=== PATIENT | male | born 1955 | race Caucasian/White ===

== ENCOUNTER 2018-08-26 16:07 | Inpatient (IN) ==
--- NOTE | 2018-08-26 16:26 | Internal Med History&Physical ---
Medical - H&P: HPI Patient information: Note initiated : 08/26/18 at 4:22 pm Service Date, if different from initiated Date: [] Patient: Quintin Avalos a 63 y/o M admitted on for Wound. Chief Complaint: [] History of present illness: Mr. Avalos is a 63 year old M Transferred to [facility] for further wound care of a infected decubitus ulcer. Patient originally presented to [facility] the middle of June for infected decubitus wound with sepsis and DKA and was transferred up to [facility] and was at there for 19 days and then discharged home. He was seen in [place] by surgeon who did debridement on the . A week later to the wound was shown to primary care provider Dr. Doherty to request the patient come to the ED. Patient was admitted and treated with IV antibiotics and was taken for OR debridement on the . The wound is debrided down to the bone and there has been eschar noted. An ESR was done today which is 108 CRP was 6. There is concern for developing osteomyelitis. [facility] does not have MRI for the next 4 days and their surgeon is gone for the next 4 days as well. This is requested to transfer for further wound care and imaging as we have MRI available. Case is also discussed with Dr. Mariscal and Dr. Garcia. Dr. kaplan will follow. MRI for tomorrow. Patient has no complaints at this time other than the sore bottom. Review of Systems: Pertinent positives as above. Denies headache/fever/chills/nausea/vomiting/chest or abdominal pain/cough/ dyspnea/diarrhea. Main 10 point review of system reviewed negative Medical - H&P: PMH Medical history: Medical History (Last Reviewed 06/20/18 @ 13:44 by Hannah Moon MD) Anemia (Chronic) Edema (Chronic) Vitamin D deficiency (Acute) Thrombocytopenia (Acute) Testosterone deficiency (Acute) Myocardial infarction, old (Acute) MRSA (methicillin resistant Staphylococcus aureus) (Acute) Hypertension, essential (Acute) Edema leg (Acute) Dysuria (Acute) DM type 2 (diabetes mellitus, type 2) (Acute) Coronary atherosclerosis (Acute) CAD (coronary artery disease) (Acute) Chronic kidney disease, stage III (moderate) (Chronic) BPH with obstruction/lower urinary tract symptoms (Acute) Asthma (Acute) Periapical abscess without sinus (Acute) Abnormal blood chemistry (Acute) Abdominal pain, generalized (Acute) Past Surgical History (Last Reviewed 06/20/18 @ 13:44 by Hannah Moon MD) History of tonsillectomy (Acute) History of quadruple bypass (Acute) History of nephrectomy (Acute) History of hernia surgery (Acute) History of coronary artery bypass graft (Acute) History of back surgery (Acute) Family History (Last Reviewed 06/20/18 @ 13:44 by Hannah Moon MD) Father Cardiac arrhythmia Mother Cardiac arrhythmia Malignant neoplasm of female breast Brother Lymphoma Social History (Last Updated 06/20/18 @ 15:33 by Hannah Moon MD) Patient denies tobacco or alcohol, Has been using a walker as of late lives at home with his mother who he cares for Medical - H&P: Meds Home Medications Medication Instructions Recorded Confirmed Type carvedilol 12.5 mg tablet See Dose Instructions PO .COMPLEX 09/06/14 06/20/18 History tab cholecalciferol (vitamin D3) 400 400 unit PO QDAY cap 09/06/14 06/20/18 History unit capsule compression socks, large See Dose Instructions .ROUTE 09/06/14 06/20/18 History .MEDSUPPLY hydrocodone 10 mg-acetaminophen 1 tab PO Q6H PRN tab 09/06/14 06/20/18 History 325 mg tablet metformin 500 mg tablet 500 mg PO BID tab 09/06/14 06/20/18 History multivitamin tablet 1 tab PO QDAY tab 09/06/14 06/20/18 History nitroglycerin 0.4 mg sublingual 0.4 mg SUBLINGUAL Q5-15MIN PRN tab 09/06/14 06/20/18 History tablet rosuvastatin 40 mg tablet 40 mg PO QDAY tab 09/06/14 06/20/18 History vitamin E 400 unit capsule 400 unit PO QDAY cap 09/06/14 06/20/18 History escitalopram 10 mg tablet 10 mg PO QDAY 08/06/15 06/20/18 History insulin lispro (U- 100) 100 See Rx Instructions .ROUTE .COMPLEX 08/06/15 06/20/18 History unit/mL subcutaneous cartridge amlodipine 2.5 mg tablet 2.5 mg PO QDAY 07/08/16 06/20/18 History aspirin 81 mg chewable tablet 324 mg PO QDAY tab 07/08/16 06/20/18 History insulin glargine (U-300) conc. 300 See Rx Instructions SUB-Q QDAY ml 07/08/16 06/20/18 History unit/mL (1.5 mL) subcutaneous pen isosorbide mononitrate ER 60 mg 120 mg PO QAM 07/08/16 06/20/18 History tablet,extended release 24 hr torsemide 20 mg tablet 40 mg PO BID #60 tab 12/09/17 06/20/18 Rx allopurinol 100 mg tablet 100 mg PO QDAY #90 tab 01/18/18 06/20/18 Rx lisinopril 5 mg tablet 5 mg PO QDAY #90 tab 01/26/18 06/20/18 Rx pregabalin 75 mg capsule 300 mg PO QDAY cap 03/15/18 06/20/18 History potassium chloride ER 20 mEq 20 meq PO QDAY #60 tab 05/25/18 06/20/18 Rx tablet,extended release doxycycline monohydrate 100 mg PO BID #20 tab 06/20/18 06/20/18 History tablet Allergies Allergy/AdvReac Type Severity Reaction Status Date / Time morphine [MORPHINE] Allergy Unknown Hallucinati Verified 06/20/18 11:15 ons Medical - H&P: Exam - Constitutional Exam: General: Alert, Awake, No acute Distress, obese Eyes/N/T: EOMI, PEERL, MMM Head/Neck: neck supple, normocephalic atraumatic CV: RRR, 2/6 SM Pulm: Clear b/l, no wheezing/rhonchi/rales Abd: soft, nontender, +BS x4 Buttock: Large open wound, foul odor, [id number] at opening and 6cm deep with 8cm cephalad tunneling Ext: no clubbing/cyanosis, 2+ chronic LE edema/lymphedema Neuro: Alert, no focal deficits, moves all extremities, CN 2-12 grossly intact, symmetrical strength b/l upper/lower, decreased sensation of lower extremities from diabetes Skin: warm/dry Medical - H&P: Reslt - Impressions Chemistry panel today in the include a sodium of 143 potassium 4.2 chloride 111 CO2 22 BUN 17 creatinine 1.1 calcium 8.6 albumin 3.0 glucose 150 bicarb 22 CBC today White blood cell count 9 hemoglobin 8 and has been 8 the past 3 days platelets 276 ESR 108 CRP 6 Medical - H&P: A/P - Narrative A/P Narrative: A: *Infected large decubitus ulcer, now concerning for osteomyelitis: -Had debridement on the and again on the at outside facility. Also had Debridement at [facility] in June -ESR 108, CRP 6 -Superficial cultures from the @outside facility growing Citrobacter/MSSA/and E. coli - (has h/o MRSA) *DM, poorly controlled: *CKD III: *Anemia, chronic: *CAD w/CABG *h/o Grade I diastolic cardiac dysfxn *HTN: *FINA: *Obesity: *Depression: on lexapro * P: -cont Vanc(d/c soon)/Zosyn for now -obtain wound/Blood Cx -Dr. Eagle following -f/u ESR/CRP -MRI - -cont home lisinopril/coreg -cont home imdur/statin/ASA -hold metformin for now, SSI and home lantus -home torsemide - -ppx: Heparin
[2018-08-26] MEDS ORDERED: ACETAMINOPHEN 325 MG TABLET PO PRN (19:37)
[2018-08-26] MEDS ORDERED: SENNOSIDES 1 TABLET PO PRN (19:37)
[2018-08-26] MEDS ORDERED: ONDANSETRON 4 MG/2 ML VIAL IV PRN (19:37)
[2018-08-26] MEDS ORDERED: VANCOMYCIN PER PHARMACY IV SCH (19:37)
[2018-08-26] MEDS ORDERED: NITROGLYCERIN 0.4 MG TAB.SUBL SL PRN (19:37)
[2018-08-26] MEDS ORDERED: IPRATROPIUM/ALBUTEROL 3 ML AMPUL.NEB NEB PRN (19:37)
[2018-08-26] MEDS ORDERED: DEXTROSE 31 GM ORAL.SUSP PO PRN (19:37)
[2018-08-26] MEDS ORDERED: HYDROmorphone 2 MG/ML VIAL ONE (19:55)
[2018-08-26] MEDS: HYDROmorphone 2 MG/ML VIAL IV PRN ×2 (19:59→22:50)
[2018-08-26] MEDS ORDERED: oxyCODONE/APAP 5/325MG TABLET PO ONE (21:13)
[2018-08-26] MEDS: oxyCODONE/APAP 5/325MG TABLET PO PRN (21:17)
[2018-08-26] MEDS: INSULIN LISPRO 1 UNIT/0.01 ML UNIT SQ SCH (21:23)
[2018-08-26] MEDS ORDERED: VANCOMYCIN 2,000 MG in 0.9 % SODIUM CHLORIDE 500 ML IV ONE (22:00)
[2018-08-26] MEDS: PIPERACILLIN SODIUM/TAZOBACTAM 3.375 GM in DEXTROSE 5% IN WATER 50 ML IV SCH (22:49)
[2018-08-26] MEDS: LACTOBACILLUS 1 CAPSULE PO SCH (22:50)
[2018-08-26] MEDS: DOCUSATE SODIUM 100 MG CAPSULE PO SCH (22:50)
[2018-08-26] MEDS: HEPARIN 5,000 UNIT/ML VIAL SQ SCH (22:50)
[2018-08-26] MEDS: 0.9 % SODIUM CHLORIDE 10 ML SYRINGE IV SCH ×2 (22:51→23:47)
[2018-08-27] MEDS: oxyCODONE/APAP 5/325MG TABLET PO PRN ×4 (03:54→21:49)
[2018-08-27] MEDS: 0.9 % SODIUM CHLORIDE 10 ML SYRINGE IV SCH ×6 (04:41→22:21)
[2018-08-27] MEDS: HYDROmorphone 2 MG/ML VIAL IV PRN ×5 (04:44→22:20)
[2018-08-27 06:15] LABS: Basophils # (Auto) 0 K/mcL (0.0-0.3); Basophils % (Auto) 0.3 % (0.0-2.0); Eosinophils # (Auto) 0.1 K/mcL (0.0-0.7); Eosinophils % (Auto) 1.8 % (0.0-7.0); Granulocytes % (Auto) 65.7 % (38.0-78.0); Lymphocytes # (Auto) 1.8 K/mcL (1.5-4.8); Lymphocytes % (Auto) 23.3 % (15.5-49.0); Mean Cell Volume 81.8 fL (80.0-100.0); Mean Corpuscular HGB Conc 31.9 g/dL (31.0-36.0); Mean Platelet Volume 10.7 fL (7.4-10.4); Monocytes # (Auto) 0.7 K/mcL (0.1-0.9); Monocytes % (Auto) 8.9 % (1.0-12.0); Platelet Count 302 K/mcL (140-440); RBC 3.06 M/mcL (4.50-5.90); Red Cell Distribution Width 15.7 % (11.5-14.5); WBC 7.8 K/mcL (4.5-11.0)
[2018-08-27 06:29] LABS: Estimated Average Glucose(eAG) 189 mg/dL; Hemoglobin A1C 8.2 % HGB (4.0-6.0)
[2018-08-27] MEDS: PIPERACILLIN SODIUM/TAZOBACTAM 3.375 GM in DEXTROSE 5% IN WATER 50 ML IV SCH ×4 (06:31→16:57)
[2018-08-27 06:46] LABS: ALT/SGPT 12 U/l (0-40); AST/SGOT 17 U/l (0-37); Albumin 2.7 gm/dL (3.2-5.2); Albumin/Globulin Ratio 0.8 (1.0-2.3); Alkaline Phosphatase 109 U/L (39-117); Bilirubin,Direct < 0.2 mg/dL (0.0-0.3); Bilirubin,Total 0.2 mg/dL (0.0-1.0); Blood Urea Nitrogen 18 mg/dl (8-23); Calcium 8.5 mg/dl (8.6-10.4); Carbon Dioxide 23 mmol/L (22-30); Chloride 105 mmol/L (96-108); Globulin 3.3 gm/dL (2.2-3.7); Glomerular Filtration Rate 58; Glucose 118 mg/dL (70-105); Lactate Dehydrogenase 229 U/L (94-250); Magnesium 1.5 mg/dL (1.6-2.5); Phosphorous 4.6 mg/dL (2.7-4.5); Potassium 3.7 mmol/L (3.3-5.1); Sodium 144 mmol/L (133-145); Triglycerides 198 mg/dl (<150)
[2018-08-27 07:35] LABS: Erythrocyte Sedimentation Rate 95 mm/hr (0-15)
--- NOTE | 2018-08-27 07:47 | Internal Med Progress Note ---
Medical - PN: Subj Patient information: Note initiated : 08/27/18 at 7:44 am Service Date, if different from initiated Date: [] Patient: Quintin Avalos a 63 y/o M admitted on 08/26/18 for Wound. Chief Complaint: [] Interval history: Mr. Avalos is a 63 year old M Transferred to [facility] for further wound care of a infected decubitus ulcer. Patient originally presented to [facility] the middle of June for infected decubitus wound with sepsis and DKA and was transferred up to [facility] and was at there for 19 days and then discharged home. He was seen in [place] by surgeon who did debridement on the . A week later to the wound was shown to primary care provider Dr. Doherty to request the patient come to the ED. Patient was admitted and treated with IV antibiotics and was taken for OR luisa karla on the . The wound is debrided down to the bone and there has been eschar noted. An ESR was done today which is 108 CRP was 6. There is concern for developing osteomyelitis. [facility] does not have MRI for the next 4 days and their surgeon is gone for the next 4 days as well. This is requested to transfer for further wound care and imaging as we have MRI available. Case is also discussed with Dr. Mariscal and Dr. Garcia. Dr. kaplan will follow. MRI for tomorrow. Patient has no complaints at this time other than the sore bottom. 08/27 No overnight events. Seen by Dr. kaplan this morning. IV antibiotics continuing. MRI this morning. No new complaints. Review of Systems: denies headache/fever/chills/nausea/vomiting/chest or abdominal pain/cough/dys pnea/diarrhea. Otherwise see above. - Constitutional Vitals: Vital Signs Temp Pulse Resp BP Pulse Ox 97.3 F 74 16 138/76 94 08/27/18 06:50 08/27/18 03:43 08/27/18 06:50 08/27/18 06:50 08/27/18 06:50 Period Temp Pulse Resp BP Sys/[place]lin Pulse Ox Last 24 Hr 97.3 F-97.8 F 63-84 14-24 138-144/65-76 93-98 Intake and Output 08/26/18 08/27/18 08/27/18 21:59 05:59 13:59 Intake Total 450 Output Total 1325 Balance -1325 450 Weight 133.583 kg Intake & Output: Intake & Output 08/26/18 08/27/18 08/27/18 21:59 05:59 13:59 Intake Total 450 Output Total 1325 Balance -1325 450 Weight 133.583 kg Intake: IV 50 Zosyn 3.375 gm In Dextrose 5% 50 in Water 50 ml @ 100 mls/hr IV Q6H JEANCARLOS Rx#:[id number] Oral 400 Output: Void Amount 1325 Other: Meal Tuna [place] Percent of Meal Consumed 100% Urine Appearance Clear Urine Color Straw Urine Odor Strong # Voids 1 Exam: General: Alert, Awake, No acute Distress, obese Eyes/N/T: EOMI, Head/Neck: neck supple, CV: RRR, 2/6 SM Pulm: Clear b/l, no wheezing/rhonchi/rales Abd: soft, nontender, +BS x4 Buttock: Large open wound, foul odor, [id number] at opening and 6cm deep with 8cm cephalad tunneling Ext: no clubbing/cyanosis, 2+ chronic LE edema/lymphedema Neuro: Alert, no focal deficits, moves all extremities, Skin: warm/dry Medical - PN: Obj Da - Labs CBC & Chem 7: 08/27/18 04:00 08/27/18 04:00 Labs: Abnormal Lab Results 08/27/18 08/27/18 04:00 04:00 RBC 3.06 L Hgb 8.0 L Hct 25.0 L RDW 15.7 H MPV 10.7 H ESR 95 H Creatinine 1.3 H Glucose 118 H Hemoglobin A1c 8.2 H Calcium 8.5 L Phosphorus 4.6 H Magnesium 1.5 L GGT 143 H C-Reactive Protein 3.0 H Albumin 2.7 L Albumin/Globulin Ratio 0.8 L Triglycerides 198 H Meds: Medications Acetaminophen (Tylenol) 650 mg PO Q6HP PRN PRN Reason: PAIN/FEVER > 101 Albuterol/Ipratropium (Duoneb) 3 ml NEB Q4HRT PRN PRN Reason: Bronchospasm Aspirin (Aspirin) 81 mg CHEWED DAILY JEANCARLOS Dextrose (Dextrose 50%) 0 ml IV UD PRN PRN Reason: Hypoglycemia Diagnostic Test (Pha) (Accu-Chek) 1 each FS ACHS [facility] Last Admin: 08/26/18 21:22 Dose: 1 each Documented by: Docusate Sodium (Colace) 100 mg PO BID [facility] Last Admin: 08/26/18 22:50 Dose: 100 mg Documented by: Glucose (Insta-Glucose) 15 gm PO PRN PRN PRN Reason: Hypoglycemia Heparin Sodium (Porcine) (Heparin) 5,000 unit SQ Q12 [facility] Last Admin: 08/26/18 22:50 Dose: 5,000 unit Documented by: Hydromorphone HCl (Dilaudid) 0.5 mg IV Q2HP PRN PRN Reason: PAIN LEVEL > 6 Last Admin: 08/27/18 04:44 Dose: 0.5 mg Documented by: Piperacillin Sod/Tazobactam (Sod 3.375 gm/ Dextrose) 50 mls @ 100 mls/hr IV Q6H [facility]; Protocol Last Admin: 08/27/18 06:31 Dose: 100 mls/hr Documented by: Vancomycin HCl 1,500 mg/ (Sodium Chloride) 500 mls @ 333.3 mls/hr IV Q12H [facility] Insulin Human Lispro (Humalog) 0 unit SQ ACHS [facility]; Protocol Last Admin: 08/26/18 21:23 Dose: Not Given Documented by: Lactobacillus Rhamnosus (Culturelle) 1 cap PO BID [facility] Last Admin: 08/26/18 22:50 Dose: 1 cap Documented by: Nitroglycerin (Nitrostat) 0.4 mg SL Q5M PRN PRN Reason: Chest Pain Ondansetron HCl (Zofran) 4 mg IV Q6HP PRN PRN Reason: Nausea And Vomiting Oxycodone/Acetaminophen (Percocet 5-325 Mg) 1 tab PO Q4HP PRN PRN Reason: PAIN LEVEL 3-6 Last Admin: 08/27/18 03:54 Dose: 1 tab Documented by: Stanley (Senokot) 2 tab PO DAILY PRN PRN Reason: Constipation Sodium Chloride (Saline Flush) 10 ml IV Q8 [facility] Last Admin: 08/27/18 04:41 Dose: 10 ml Documented by: Sodium Chloride (Saline Flush) 10 ml IV Q8 [facility] Last Admin: 08/27/18 04:42 Dose: Not Given Documented by: Vancomycin HCl (Vancomycin Per Pharmacy) 1 order IV [facility] [place] [place]; Protocol Medical - PN: A/P - Time Spent With Patient Total time spent is greater than 50% in coordination of care (as documented) at patient's floor/unit and/or counseling patient: - Narrative A/P Narrative: A: *Infected large left buttock pressure ulcer, now concerning for osteomyelitis: -Had debridement on the and at outside facility. Also Debridement in June while at [facility] -ESR 108, CRP 6 -Superficial cultures from the @outside facility growing Citrobacter/MSSA/and E. coli -WC here with GNB *DM, poorly controlled: *CKD III: *Anemia, chronic: *CAD w/CABG *h/o Grade I diastolic cardiac dysfxn *HTN: *FINA: *Obesity: *Depression: on lexapro *Hypomag P: -cont Zosyn for now -pending wound/Blood Cx -Dr. Eagle following -f/u ESR/CRP -MRI pelvis pending - -cont home lisinopril/coreg -cont home imdur/statin/ASA -hold metformin for now, SSI and home lantus -hold torsemide today, ?on furosemide too? - -ppx: Heparin Medical - PN: Qual - VTE Deep Vein Thrombosis/Pulmonary Embolism Present on Admission: No
[2018-08-27] MEDS ORDERED: NITROGLYCERIN 0.4 MG TAB.SUBL SL PRN (07:57)
[2018-08-27] MEDS: INSULIN LISPRO 1 UNIT/0.01 ML UNIT SQ SCH ×4 (08:01→22:06)
[2018-08-27] MEDS ORDERED: FUROSEMIDE 20 MG TABLET PO SCH (09:00)
[2018-08-27] MEDS ORDERED: GADOTERIDOL INJ 20 ML/VIAL IV ONE (09:25)
[2018-08-27] MEDS ORDERED: [UNRECOGNIZED DRUG - OTHER] IV ONE (09:25)
--- NOTE | 2018-08-27 10:23 | General Surgery Consult Note ---
History of Present Illness Patient information: Note initiated : 08/27/18 at 10:11 am Service Date, if different from initiated Date: [] Patient: Quintin Avalos 63 y/o M admitted on 08/26/18 for Wound. Chief Complaint: [] Consult date: 08/27/18 Requesting physician: Jaswant Palacio (Wound Care. ) History of present illness: I saw this patient in room 108 along with Nafisa JAQUEZ. I reviewed the hospitalization records from [facility] in [facility] in [place] and from [facility] in [place], [place]. CC: 63 / M Super morbid obese hirsuite gentleman with complicated OPEN POST SURGICAL BUTTOCK WOUND EXTENDING TO SACRAL, COCCYGEAL REGION. CLOSE PROXIMITY TO ANAL ORIFICE. Patient ambulates without orthostatic symptoms. H/O Uncontrolled diabetes, CAD and spine disease. S/P CABG and Lumbar spine surgery. H/O being sick for over 6-8 weeks. Noted a BOIL over Left buttock, which was lanced, treated with oral antibiotics. Led to CSSSI and sever sepsis with SIRS. Prolonged hospitalization at [facility], [facility], [place] later further inpatient treatment and last surgical debridement at [facility], in [place], [place] by Dr. Doherty, 3 days ago. Subsequently transferred to [facility], [place], [place] last evening. patient is sin gle, lives by himself and has family members living near by. He is Non Smoker and Non alcoholic. Medications and Allergies Home Medications Medication Instructions Recorded Confirmed Type carvedilol 12.5 mg tablet 12.5 mg PO QAM tab 09/06/14 08/27/18 History cholecalciferol (vitamin D3) 400 400 unit PO QDAY cap 09/06/14 08/28/18 History unit capsule hydrocodone 10 mg-acetaminophen 1 - 2 tab PO Q4HP PRN tab 09/06/14 08/27/18 History 325 mg tablet metformin 500 mg tablet 500 mg PO BID tab 09/06/14 08/27/18 History nitroglycerin 0.4 mg sublingual 0.4 mg SUBLINGUAL Q5-15MIN PRN tab 09/06/14 08/27/18 History tablet rosuvastatin 40 mg tablet 40 mg PO QHS tab 09/06/14 08/27/18 History vitamin E 400 unit capsule 400 unit PO QDAY cap 09/06/14 08/28/18 History escitalopram 10 mg tablet 10 mg PO QDAY 08/06/15 08/27/18 History insulin lispro (U- 100) 100 See Rx Instructions .ROUTE .COMPLEX 08/06/15 06/20/18 History unit/mL subcutaneous cartridge amlodipine 2.5 mg tablet 2.5 mg PO QDAY 07/08/16 08/28/18 History aspirin 81 mg chewable tablet 324 mg PO QDAY tab 07/08/16 08/27/18 History insulin glargine (U-300) conc. 300 See Rx Instructions SUB-Q QDAY ml 07/08/16 06/20/18 History unit/mL (1.5 mL) subcutaneous pen isosorbide mononitrate ER 60 mg 60 mg PO QDAY 07/08/16 08/27/18 History tablet,extended release 24 hr allopurinol 100 mg tablet 100 mg PO QDAY #90 tab 01/18/18 08/28/18 Rx lisinopril 5 mg tablet 5 mg PO QDAY #90 tab 01/26/18 08/27/18 Rx pregabalin 75 mg capsule 75 mg PO QID cap 03/15/18 08/27/18 History potassium chloride ER 20 mEq 20 meq PO QDAY #60 tab 05/25/18 08/27/18 Rx tablet,extended release Calcitriol [Rocaltrol] 0.25 mcg PO BID 08/27/18 08/27/18 History Carvedilol [Coreg] 6.25 mg PO QHS 08/27/18 08/27/18 History Enoxaparin [Lovenox] 40 mg SQ DAILY 08/27/18 08/27/18 History Insulin Glargine, Human [Lantus] 60 unit SQ BID 08/27/18 08/27/18 History Insulin Regular, Human [HumuLIN R] See Protocol IJ ACHS 08/27/18 08/27/18 Histo ry Piperacillin Sodium/Tazobactam 3.375 gm IV Q6H 08/27/18 08/27/18 History [Zosyn] Torsemide [Demadex] 30 mg PO BID 08/27/18 08/27/18 History Vanco 1 Gram/250 ml-0.9% NaCl 1 gm IV Q12H 08/27/18 08/27/18 History Vancomycin/0.9 % Sod Chloride 1.25 gm IV Q12H 08/27/18 08/27/18 History [Vanco 1.25 gm/250 ml-0.9% NaCl] Vit A,C & E/Lutein/Minerals 1 tab PO DAILY 08/27/18 08/27/18 History [Ocuvite] fentaNYL CITRATE/PF [Fentanyl 100 50 mcg IV Q4H PRN 08/27/18 08/27/18 History Mcg/2 ml Syringe] glipiZIDE [Glipizide ER] 2.5 mg PO BIDCC 08/27/18 08/27/18 History oxyCODONE/APAP [Percocet 5-325 mg] 1 tab PO Q6H PRN 08/27/18 08/27/18 History Multivit-Min/FA/Lycopen/Lutein 1 each PO DAILY 08/28/18 08/28/18 History [Centrum Silver Tablet] Allergies Allergy/AdvReac Type Severity Reaction Status Date / Time morphine [MORPHINE] AdvReac Mild Hallucinati Verified 08/28/18 08:44 ons Exam Temp Pulse Resp BP Pulse Ox 97.3 F 74 16 138/76 94 08/27/18 06:50 08/27/18 03:43 08/27/18 06:50 08/27/18 06:50 08/27/18 06:50 - General physical appearance well developed, well nourished, no distress, obese - Eyes PERRL, normal ocular movement - ENT normal pinna, normal nares, normal mucosa, no congestion - Head Head exam IM: Present: atraumatic, normal inspection, normocephalic - Neck no masses, no bruits, trachea midline, no lymphadenopathy, no venous distension - Cardiovascular Cardiovascular exam IM: Present: normal rate and rhythm - Respiratory clear to auscultation - Abdomen Abdomen: Present: soft, non tender, bowel sounds - Genitourinary Present: normal penis with no external lesions, testicles present - Rectum Rectum: Present: other (Rectal Examination. Guiac negative stools. Unremarkable prostrate examination. No nodules) - Integumentary Present: other (Larger open LEFT buttock wound involving over 80 % gluteal surface over 15 x 10 x 12 CM. Extends to coccygeal region and to Right buttock as well. Over 80 % adherent slough and 15 % granulations. Mild odor. ) - Neurologic Present: other (Non focal neurological examination. WEAK Rectal sphincter tone on rectal examination. Stress incontinence of flatus / feces. ) - Musculoskeletal Present: normal gait, other (LARGE open post surgicalbuttock wound LEFT . ) - Psychiatric Present: oriented to time, oriented to person, oriented to place, speech is normal Results - Labs 08/28/18 04:15 08/28/18 04:15 Abnormal lab results 08/27/18 08/27/18 Range/Units 04:00 04:00 RBC 3.06 L (4.50-5.90) M/mcL Hgb 8.0 L (13.5-16.5) g/dL Hct 25.0 L (41.0-55.0) % RDW 15.7 H (11.5-14.5) % MPV 10.7 H (7.4-10.4) fL ESR 95 H (0-15) mm/hr Creatinine 1.3 H (0.7-1.2) mg/dl Glucose 118 H (70-105) mg/dL Hemoglobin A1c 8.2 H (4.0-6.0) % HGB Calcium 8.5 L (8.6-10.4) mg/dl Phosphorus 4.6 H (2.7-4.5) mg/dL Magnesium 1.5 L (1.6-2.5) mg/dL GGT 143 H (8-61) U/L C-Reactive Protein 3.0 H (0.0-0.8) mg/dl Albumin 2.7 L (3.2-5.2) gm/dL Albumin/Globulin Ratio 0.8 L (1.0-2.3) Triglycerides 198 H (<150) mg/dl Diabetes panel 08/27/18 Range/Units 04:00 Sodium 144 (133-145) mmol/L Potassium 3.7 (3.3-5.1) mmol/L Chloride 105 (96-108) mmol/L Carbon Dioxide 23 (22-30) mmol/L BUN 18 (8-23) mg/dl Creatinine 1.3 H (0.7-1.2) mg/dl Glucose 118 H (70-105) mg/dL Hemoglobin A1c 8.2 H (4.0-6.0) % HGB Calcium 8.5 L (8.6-10.4) mg/dl AST 17 (0-37) U/l ALT 12 (0-40) U/l Alkaline Phosphatase 109 (39-117) U/L Total Protein 6.0 (5.9-8.4) gm/dL Albumin 2.7 L (3.2-5.2) gm/dL Triglycerides 198 H (<150) mg/dl Calcium panel 08/27/18 Range/Units 04:00 Calcium 8.5 L (8.6-10.4) mg/dl Phosphorus 4.6 H (2.7-4.5) mg/dL Albumin 2.7 L (3.2-5.2) gm/dL Pituitary panel 08/27/18 Range/Units 04:00 Sodium 144 (133-145) mmol/L Potassium 3.7 (3.3-5.1) mmol/L Chloride 105 (96-108) mmol/L Carbon Dioxide 23 (22-30) mmol/L BUN 18 (8-23) mg/dl Creatinine 1.3 H (0.7-1.2) mg/dl Glucose 118 H (70-105) mg/dL Calcium 8.5 L (8.6-10.4) mg/dl Adrenal panel 08/27/18 Range/Units 04:00 Sodium 144 (133-145) mmol/L Potassium 3.7 (3.3-5.1) mmol/L Chloride 105 (96-108) mmol/L Carbon Dioxide 23 (22-30) mmol/L BUN 18 (8-23) mg/dl Creatinine 1.3 H (0.7-1.2) mg/dl Glucose 118 H (70-105) mg/dL Calcium 8.5 L (8.6-10.4) mg/dl Total Bilirubin 0.2 (0.0-1.0) mg/dL AST 17 (0-37) U/l ALT 12 (0-40) U/l Alkaline Phosphatase 109 (39-117) U/L Total Protein 6.0 (5.9-8.4) gm/dL Albumin 2.7 L (3.2-5.2) gm/dL All other labs normal. Assessment and Plan (1) Open wound of left buttock with complication Assessment: Post surgical wound LEFT gluteal region in close proximity of anus and rectum. H/O Diabetes and atherosclerotic PAD and CAD. NEEDS prolonged ongoing wound care, debridement and other interventions as necessary. Consideration for diversion colostomy and urine diversion over immediate intermediate term vs residential, until wound heals. ID evaluation for recommendations about antibiotics management. Plan: See wound care orders. Status: Acute Priority: High Comment: MRI report seen and pictures reviewed. SOFT tissue defect at the site of wound with muscle edema and gas open to the surface. NO vasculature and NO bone structure involvement. Qualifiers: Encounter type: initial encounter Qualified Code(s): S31.829A - Unspecified open wound of left buttock, initial encounter (2) History of quadruple bypass Status: Chronic Priority: Low Comment: 2000; ANA Farmer (3) History of back surgery Status: Chronic Priority: Low Comment: Lumbar back fusion - no hardware
[2018-08-27] MEDS: VANCOMYCIN 1,500 MG in 0.9 % SODIUM CHLORIDE 500 ML IV SCH ×2 (10:39→21:41)
[2018-08-27] MEDS: TORSEMIDE 10 MG TABLET PO SCH ×2 (10:40→16:47)
[2018-08-27] MEDS: ISOSORBIDE MONONITRATE 60 MG TAB.XL.24H PO SCH (10:40)
[2018-08-27] MEDS: HEPARIN 5,000 UNIT/ML VIAL SQ SCH ×2 (10:40→21:49)
[2018-08-27] MEDS: ASPIRIN 81 MG TAB.CHEW CHEWED SCH (10:41)
[2018-08-27] MEDS: ESCITALOPRAM 10 MG TABLET PO SCH (10:41)
[2018-08-27] MEDS: CALCITRIOL 0.25 MCG CAPSULE PO SCH ×2 (10:41→21:50)
[2018-08-27] MEDS: PREGABALIN 75 MG CAPSULE PO SCH ×4 (10:41→21:50)
[2018-08-27] MEDS: DOCUSATE SODIUM 100 MG CAPSULE PO SCH ×2 (10:41→21:54)
[2018-08-27] MEDS: LACTOBACILLUS 1 CAPSULE PO SCH ×2 (10:41→21:50)
[2018-08-27] MEDS: LISINOPRIL 10 MG TABLET PO SCH (10:41)
[2018-08-27] MEDS: POTASSIUM CHLORIDE 20 MEQ TABLET PO SCH (10:42)
[2018-08-27] MEDS: INSULIN GLARGINE, HUMAN 1 UNIT/0.01 ML SQ SCH ×2 (10:42→22:06)
[2018-08-27] MEDS: CARVEDILOL 12.5 MG TABLET PO SCH (10:42)
--- NOTE | 2018-08-27 11:07 | Magnetic Resonance Report ---
CLINICAL INFORMATION: Soft tissue wound in the left gluteal region. Possible osteomyelitis TECHNIQUE: Sagittal, axial, coronal images of the buttocks, sacrum, and pelvis. Intravenous contrast material was administered. Scans were performed before and after contrast injection COMPARISON: None. FINDINGS: Axial images demonstrate a soft tissue defect in the left buttocks, just to the left of midline. There is signal void consistent with soft tissue gas which communicates with the skin surface. There is no well-defined fluid collection. There is mild signal increase on T2-weighted images within the left gluteal muscles. There is no fluid collection. No soft tissue enhancement. No evidence for soft tissue abscess. Sacrum and coccyx are negative. There is no bone marrow edema. No enhancement. No bone destruction. No evidence for osteomyelitis. There is mild presacral soft tissue edema. No enhancing lesion. No intrapelvic abscess. There is no free pelvic fluid. Pelvis is negative. Iliac bones, ischiae, and pubic bones are negative. IMPRESSION: 1. Negative sacrum and coccyx. No osteomyelitis 2. Mild signal abnormality within the left gluteal muscles consistent with edema. No enhancement. No soft tissue abscess 3. Focal soft tissue wound just to the left of midline Interpreted and Authenticated by: Marcos Avery 08/27/18
[2018-08-27] MEDS ORDERED: oxyCODONE/APAP 5/325MG TABLET PO PRN ×2 (11:23→13:45)
[2018-08-27] MEDS: SIMVASTATIN 40 MG TABLET PO SCH (21:49)
[2018-08-27] MEDS: CARVEDILOL 6.25 MG TABLET PO SCH (21:50)
[2018-08-28] MEDS: PIPERACILLIN SODIUM/TAZOBACTAM 3.375 GM in DEXTROSE 5% IN WATER 50 ML IV SCH ×4 (00:22→17:15)
[2018-08-28] MEDS: oxyCODONE/APAP 5/325MG TABLET PO PRN ×5 (00:22→22:09)
[2018-08-28] MEDS: HYDROmorphone 2 MG/ML VIAL IV PRN ×5 (00:47→21:10)
[2018-08-28] MEDS: 0.9 % SODIUM CHLORIDE 10 ML SYRINGE IV SCH ×4 (05:39→13:15)
[2018-08-28 06:03] LABS: Basophils # (Auto) 0.1 K/mcL (0.0-0.3); Basophils % (Auto) 0.9 % (0.0-2.0); Eosinophils # (Auto) 0.2 K/mcL (0.0-0.7); Eosinophils % (Auto) 2.5 % (0.0-7.0); Granulocytes % (Auto) 65.5 % (38.0-78.0); Hematocrit 27.3 % (41.0-55.0); Hemoglobin 9.1 g/dL (13.5-16.5); Lymphocytes # (Auto) 1.4 K/mcL (1.5-4.8); Lymphocytes % (Auto) 21.3 % (15.5-49.0); Mean Cell Volume 80.5 fL (80.0-100.0); Mean Corpuscular HGB Conc 33.5 g/dL (31.0-36.0); Mean Platelet Volume 10.8 fL (7.4-10.4); Monocytes # (Auto) 0.7 K/mcL (0.1-0.9); Monocytes % (Auto) 9.8 % (1.0-12.0); Platelet Count 256 K/mcL (140-440); RBC 3.39 M/mcL (4.50-5.90); Red Cell Distribution Width 15.1 % (11.5-14.5); WBC 6.7 K/mcL (4.5-11.0)
[2018-08-28 06:50] LABS: ALT/SGPT 13 U/l (0-40); AST/SGOT 21 U/l (0-37); Albumin 2.6 gm/dL (3.2-5.2); Albumin/Globulin Ratio 0.7 (1.0-2.3); Alkaline Phosphatase 102 U/L (39-117); Bilirubin,Direct < 0.2 mg/dL (0.0-0.3); Bilirubin,Total 0.3 mg/dL (0.0-1.0); Blood Urea Nitrogen 21 mg/dl (8-23); Calcium 8.4 mg/dl (8.6-10.4); Carbon Dioxide 24 mmol/L (22-30); Chloride 102 mmol/L (96-108); Globulin 3.6 gm/dL (2.2-3.7); Glomerular Filtration Rate 64; Glucose 65 mg/dL (70-105); Lactate Dehydrogenase 291 U/L (94-250); Magnesium 1.5 mg/dL (1.6-2.5); Phosphorous 4.7 mg/dL (2.7-4.5); Potassium 3.9 mmol/L (3.3-5.1); Sodium 143 mmol/L (133-145); Triglycerides 158 mg/dl (<150); Uric Acid 5.1 mg/dL (2.5-8.0)
[2018-08-28] MEDS ORDERED: oxyCODONE/APAP 5/325MG TABLET PO PRN (07:23)
[2018-08-28] MEDS ORDERED: FENTANYL CITRATE IV PRN (07:23)
[2018-08-28] MEDS ORDERED: [UNRECOGNIZED DRUG - OTHER] IV PRN (07:23)
--- NOTE | 2018-08-28 07:27 | Internal Med Progress Note ---
Medical - PN: Subj Patient information: Note initiated : 08/28/18 at 7:25 am Service Date, if different from initiated Date: [] Patient: Quintin Avalos a 63 y/o M admitted on 08/26/18 for Wound. Chief Complaint: [] Interval history: Mr. Avalos is a 63 year old M Transferred to [facility] for further wound care of a infected decubitus ulcer. Patient originally presented to [facility] the middle of June for infected decubitus wound with sepsis and DKA and was transferred up to [place] and was at there for 19 days and then discharged home. He was seen in [place] by surgeon who did debridement on the . A week later to the wound was shown to primary care provider Dr. Doherty to request the patient come to the ED. Patient was admitted and treated with IV antibiotics and was taken for OR luisa karla on the . The wound is debrided down to the bone and there has been eschar noted. An ESR was done today which is 108 CRP was 6. There is concern for developing osteomyelitis. [facility] does not have MRI for the next 4 days and their surgeon is gone for the next 4 days as well. This is requested to transfer for further wound care and imaging as we have MRI available. Case is also discussed with Dr. Mariscal and Dr. Garcia. Dr. kaplan will follow. MRI for tomorrow. Patient has no complaints at this time other than the sore bottom. 08/27 No overnight events. Seen by Dr. kaplan this morning. IV antibiotics continuing. MRI this morning. No new complaints. 08/28 Pain controlled, no overnight events. No new complaints. Did have some diarrhea yesterday. Stool softener stopped. Review of Systems: denies headache/fever/chills/nausea/vomiting/chest or abdominal pain/cough/dyspnea/diarrhea. Otherwise see above. - Constitutional Vitals: Vital Signs Temp Pulse Resp BP Pulse Ox 98.9 F 110 H 20 118/82 97 08/28/18 06:43 08/28/18 04:00 08/28/18 06:43 08/28/18 06:43 08/28/18 06:43 Period Temp Pulse Resp BP Sys/Hamlin Pulse Ox Last 24 Hr 97 F-99.5 F 88-116 18-20 118-142/67-84 94-97 Intake and Output 08/27/18 08/28/18 08/28/18 21:59 05:59 13:59 Intake Total 50 1150 Output Total 2175 1125 400 Balance -2125 25 -400 Weight 143.789 kg Intake & Output: Intake & Output 08/27/18 08/28/18 08/28/18 21:59 05:59 13:59 Intake Total 50 1150 Output Total 2175 1125 400 Balance -2125 25 -400 Weight 143.789 kg Intake: IV 50 50 Zosyn 3.375 gm In Dextrose 5% 50 50 in Water 50 ml @ 100 mls/hr IV Q6H [facility] Rx#:[id number] Oral 1100 Output: Void Amount 2175 1125 400 # of times incontinent of urine 0 Other: Meal HS Snack - Cottage cheese/fruit Percent of Meal Consumed 100% Feeding Ability Independent Urine Appearance Clear Urine Color Pale Straw Stool Size Small Stool Color Brown Stool Consistency Soft Formed # Voids 1 Exam: General: Alert, Awake, No acute Distress, obese Eyes/N/T: EOMI, Head/Neck: neck supple, CV: RRR, 2/6 SM Pulm: Clear b/l, no wheezing/rhonchi/rales Abd: soft, nontender, +BS x4 Buttock: Large open wound, foul odor, [id number] at opening and 6cm deep with 8cm cephalad tunneling , dressings now in place Ext: no clubbing/cyanosis, 2+ chronic LE edema/lymphedema Neuro: Alert, no focal deficits, moves all extremities, Skin: warm/dry Medical - PN: Obj Da - Labs CBC & Chem 7: 08/28/18 04:15 08/28/18 04:15 Labs: Abnormal Lab Results 08/28/18 08/28/18 08/28/18 04:15 04:15 04:15 RBC 3.39 L Hgb 9.1 L Hct 27.3 L RDW 15.1 H MPV 10.8 H Lymph # (Auto) 1.4 L ESR Anion Gap 17.0 H Creatinine Glucose 65 L Hemoglobin A1c Calcium 8.4 L Phosphorus 4.7 H Magnesium 1.5 L GGT 153 H Lactate Dehydrogenase 291 H C-Reactive Protein 6.2 H Albumin 2.6 L Albumin/Globulin Ratio 0.7 L Triglycerides 158 H 08/27/18 08/27/18 04:00 04:00 RBC 3.06 L Hgb 8.0 L Hct 25.0 L RDW 15.7 H MPV 10.7 H Lymph # (Auto) ESR 95 H Anion Gap Creatinine 1.3 H Glucose 118 H Hemoglobin A1c 8.2 H Calcium 8.5 L Phosphorus 4.6 H Magnesium 1.5 L GGT 143 H Lactate Dehydrogenase C-Reactive Protein 3.0 H Albumin 2.7 L Albumin/Globulin Ratio 0.8 L Triglycerides 198 H Meds: Medications Acetaminophen (Tylenol) 650 mg PO Q6HP PRN PRN Reason: PAIN/FEVER > 101 Albuterol/Ipratropium (Duoneb) 3 ml NEB Q4HRT PRN PRN Reason: Bronchospasm Aspirin (Aspirin) 81 mg CHEWED DAILY [facility] Last Admin: 08/27/18 10:41 Dose: 81 mg Documented by: Calcitriol (Rocaltrol) 0.25 mcg PO BID [facility] Last Admin: 08/27/18 21:50 Dose: 0.25 mcg Documented by: Carvedilol (Coreg) 12.5 mg PO QAM [facility] Last Admin: 08/27/18 10:42 Dose: 12.5 mg Documented by: Carvedilol (Coreg) 6.25 mg PO QHS [facility] Last Admin: 08/27/18 21:50 Dose: 6.25 mg Documented by: Dextrose (Dextrose 50%) 0 ml IV UD PRN PRN Reason: Hypoglycemia Diagnostic Test (Pha) (Accu-Chek) 1 each FS ACHS [facility] Last Admin: 08/27/18 21:50 Dose: 1 each Documented by: Docusate Sodium (Colace) 100 mg PO BID [facility] Last Admin: 08/27/18 21:54 Dose: Not Given Documented by: Escitalopram Oxalate (Lexapro) 10 mg PO QDAY [facility] Last Admin: 08/27/18 10:41 Dose: 10 mg Documented by: Glucose (Insta-Glucose) 15 gm PO PRN PRN PRN Reason: Hypoglycemia Heparin Sodium (Porcine) (Heparin) 5,000 unit SQ Q12 [facility] Last Admin: 08/27/18 21:49 Dose: 5,000 unit Documented by: Hydromorphone HCl (Dilaudid) 0.5 mg IV Q2HP PRN PRN Reason: PAIN LEVEL > 6 Last Admin: 08/28/18 02:54 Dose: 0.5 mg Documented by: Piperacillin Sod/Tazobactam (Sod 3.375 gm/ Dextrose) 50 mls @ 100 mls/hr IV Q6H [facility]; Protocol Last Admin: 08/28/18 05:39 Dose: 100 mls/hr Documented by: Vancomycin HCl 1,500 mg/ (Sodium Chloride) 500 mls @ 333.3 mls/hr IV Q12H [facility] Last Admin: 08/27/18 21:41 Dose: 333 mls/hr Documented by: Insulin Glargine (Lantus) 60 unit SQ BID [facility] Last Admin: 08/27/18 22:06 Dose: 60 unit Documented by: Insulin Human Lispro (Humalog) 0 unit SQ ACHS [facility]; Protocol Last Admin: 08/27/18 22:06 Dose: 4 units Documented by: Isosorbide Mononitrate (Imdur) 60 mg PO QDAY [facility] Last Admin: 08/27/18 10:40 Dose: 60 mg Documented by: Lactobacillus Rhamnosus (Culturelle) 1 cap PO BID [facility] Last Admin: 08/27/18 21:50 Dose: 1 cap Documented by: Lisinopril (Zestril) 5 mg PO QDAY [facility] Last Admin: 08/27/18 10:41 Dose: 5 mg Documented by: Nitroglycerin (Nitrostat) 0.4 mg SL Q5M PRN PRN Reason: Chest Pain Ondansetron HCl (Zofran) 4 mg IV Q6HP PRN PRN Reason: Nausea And Vomiting Oxycodone/Acetaminophen (Percocet 5-325 Mg) 1 - 2 tab PO Q4HP PRN PRN Reason: PAIN LEVEL 3-6 Last Admin: 08/28/18 04:24 Dose: 2 tab Documented by: Potassium Chloride (Kdur) 20 meq PO QAMCC [facility] Last Admin: 08/27/18 10:42 Dose: 20 meq Documented by: Pregabalin (Lyrica) 75 mg PO QID [facility] Last Admin: 08/27/18 21:50 Dose: 75 mg Documented by: Senna (Senokot) 2 tab PO DAILY PRN PRN Reason: Constipation Simvastatin (Zocor) 40 mg PO [facility] Last Admin: 08/27/18 21:49 Dose: 40 mg Documented by: Sodium Chloride (Saline Flush) 10 ml IV Q8 [facility] Last Admin: 08/28/18 05:39 Dose: 10 ml Documented by: Sodium Chloride (Saline Flush) 10 ml IV Q8 [facility] Last Admin: 08/28/18 05:45 Dose: Not Given Documented by: Torsemide (Demadex) 30 mg PO BIDD [facility] Last Admin: 08/27/18 16:47 Dose: 30 mg Documented by: Vancomycin HCl (Vancomycin Per Pharmacy) 1 order IV UD [facility]; Protocol Medical - PN: A/P - Time Spent With Patient Total time spent is greater than 50% in coordination of care (as documented) at patient's floor/unit and/or counseling patient: - Narrative A/P Narrative: A: *Infected large left buttock pressure ulcer, now concerning for osteomyelitis: -Had debridement on the and at outside facility. Also Debridement in June while at [place] -ESR 108, CRP 6 -Superficial cultures from the @outside facility growing Citrobacter/MSSA/and E. coli -WC here with GNBx2 -No Osteo per MRI *DM, poorly controlled: *CKD III: *Anemia, chronic: *CAD w/CABG *h/o Grade I diastolic cardiac dysfxn *HTN: *FINA: *Obesity: *Depression: on lexapro *Hypomag P: -cont Zosyn for now -pending wound/Blood Cx -Dr. Eagle following -Recommend wound vac -cont home lisinopril/coreg -cont home imdur/statin/ASA -hold metformin for now, SSI and home lantus -cont home torsemide -ppx: Heparin Medical - PN: Qual - VTE Deep Vein Thrombosis/Pulmonary Embolism Present on Admission: No
[2018-08-28] MEDS ORDERED: SODIUM CHLORIDE IV SCH (07:30)
[2018-08-28] MEDS ORDERED: VANCOMYCIN IV SCH (07:30)
[2018-08-28] MEDS: INSULIN LISPRO 1 UNIT/0.01 ML UNIT SQ SCH ×4 (07:49→21:28)
[2018-08-28] MEDS: POTASSIUM CHLORIDE 20 MEQ TABLET PO SCH (07:50)
[2018-08-28] MEDS: TORSEMIDE 10 MG TABLET PO SCH (07:50)
[2018-08-28] MEDS: INSULIN GLARGINE, HUMAN 1 UNIT/0.01 ML SQ SCH ×2 (07:50→21:28)
[2018-08-28] MEDS: metFORMIN 500 MG TABLET PO SCH ×2 (07:50→17:38)
[2018-08-28] MEDS: glipiZIDE 2.5 MG TAB.XL.24H PO SCH ×2 (08:17→17:40)
[2018-08-28] MEDS ORDERED: MAGNESIUM SULFATE 8.12 MEQ in DEXTROSE 5% IN WATER 50 ML IV ONE (08:28)
[2018-08-28] MEDS: ISOSORBIDE MONONITRATE 60 MG TAB.XL.24H PO SCH (09:56)
[2018-08-28] MEDS: ESCITALOPRAM 10 MG TABLET PO SCH (09:56)
[2018-08-28] MEDS: VITAMIN D3 400 UNIT TABLET PO SCH (09:56)
[2018-08-28] MEDS: ENOXAPARIN 40 MG/0.4 ML SYRINGE SQ SCH (09:56)
[2018-08-28] MEDS: CALCITRIOL 0.25 MCG CAPSULE PO SCH ×2 (09:56→21:10)
[2018-08-28] MEDS: LISINOPRIL 10 MG TABLET PO SCH (09:57)
[2018-08-28] MEDS: amLODIPine 5 MG TABLET PO SCH (09:57)
[2018-08-28] MEDS: CARVEDILOL 12.5 MG TABLET PO SCH (09:57)
[2018-08-28] MEDS: LACTOBACILLUS 1 CAPSULE PO SCH ×2 (09:57→21:10)
[2018-08-28] MEDS: ALLOPURINOL 100 MG TABLET PO SCH (09:57)
[2018-08-28] MEDS: VIT A,C & E/LUTEIN/MINERALS TABLET PO SCH (09:58)
[2018-08-28] MEDS: PREGABALIN 75 MG CAPSULE PO SCH ×4 (09:58→21:10)
[2018-08-28] MEDS: MULTIVIT,THER IRON,CA,FA & MIN 1 TABLET PO SCH (09:58)
[2018-08-28] MEDS: ASPIRIN 81 MG TAB.CHEW CHEWED SCH (09:58)
[2018-08-28] MEDS: VITAMIN E (DL,TOCOPHERYL ACET) 400 UNIT CAPSULE PO SCH (09:59)
--- NOTE | 2018-08-28 12:03 | General Surgery Progress Note ---
Subjective Patient reports: no new complaints Narrative: Note initiated : 08/28/18 at 12:00 pm Service Date, if different from initiated Date: [] Patient: Quintin Avalos 63 y/o M admitted on 08/26/18 for Wound. Chief Complaint: [] Objective Temp Pulse Resp BP Pulse Ox 98.9 F 110 H 20 118/82 97 08/28/18 06:43 08/28/18 04:00 08/28/18 06:43 08/28/18 06:43 08/28/18 06:43 AVSS. Wound care is ongoing. - Additional Data Intake & Output - Last 24 hours: Intake & Output 08/26/18 08/27/18 08/28/18 08/29/18 05:59 05:59 05:59 05:59 Intake Total 450 2240 50 Output Total 1325 4700 400 Balance -875 -2500 -350 Weight 294 lb 8 oz 317 lb - Labs 08/28/18 04:15 08/28/18 04:15 Diabetes panel 08/28/18 Range/Units 04:15 Sodium 143 (133-145) mmol/L Potassium 3.9 (3.3-5.1) mmol/L Chloride 102 (96-108) mmol/L Carbon Dioxide 24 (22-30) mmol/L BUN 21 (8-23) mg/dl Creatinine 1.2 (0.7-1.2) mg/dl Glucose 65 L (70-105) mg/dL Calcium 8.4 L (8.6-10.4) mg/dl AST 21 (0-37) U/l ALT 13 (0-40) U/l Alkaline Phosphatase 102 (39-117) U/L Total Protein 6.2 (5.9-8.4) gm/dL Albumin 2.6 L (3.2-5.2) gm/dL Triglycerides 158 H (<150) mg/dl Calcium panel 08/28/18 Range/Units 04:15 Calcium 8.4 L (8.6-10.4) mg/dl Phosphorus 4.7 H (2.7-4.5) mg/dL Albumin 2.6 L (3.2-5.2) gm/dL Pituitary panel 08/28/18 Range/Units 04:15 Sodium 143 (133-145) mmol/L Potassium 3.9 (3.3-5.1) mmol/L Chloride 102 (96-108) mmol/L Carbon Dioxide 24 (22-30) mmol/L BUN 21 (8-23) mg/dl Creatinine 1.2 (0.7-1.2) mg/dl Glucose 65 L (70-105) mg/dL Calcium 8.4 L (8.6-10.4) mg/dl Adrenal panel 08/28/18 Range/Units 04:15 Sodium 143 (133-145) mmol/L Potassium 3.9 (3.3-5.1) mmol/L Chloride 102 (96-108) mmol/L Carbon Dioxide 24 (22-30) mmol/L BUN 21 (8-23) mg/dl Creatinine 1.2 (0.7-1.2) mg/dl Glucose 65 L (70-105) mg/dL Calcium 8.4 L (8.6-10.4) mg/dl Total Bilirubin 0.3 (0.0-1.0) mg/dL AST 21 (0-37) U/l ALT 13 (0-40) U/l Alkaline Phosphatase 102 (39-117) U/L Total Protein 6.2 (5.9-8.4) gm/dL Albumin 2.6 L (3.2-5.2) gm/dL Assessment and Plan (1) Open wound of left buttock with complication Problem details: MRI report seen and pictures reviewed. SOFT tissue defect at the site of wound with muscle edema and gas open to the surface. NO vasculature and NO bone structure involvement. Status: Acute Current Visit: Yes (2) History of quadruple bypass Problem details: 2000; [place], [place] Status: Chronic Current Visit: No (3) History of back surgery Problem details: Lumbar back fusion - no hardware Status: Chronic Current Visit: No - Narrative A/P Narrative: Assessment: Satisfactory progress. REVIEWED with nurses and Hospitalist Physician. Await Consultations ID, General Surgery and Urology. Plan: Continue ongoing wound care and other management. - Time Spent With Patient Total time spent is greater than 50% in coordination of care (as documented) at patient's floor/unit and/or counseling patient:
[2018-08-28] MEDS: SIMVASTATIN 40 MG TABLET PO SCH (21:10)
[2018-08-28] MEDS: CARVEDILOL 6.25 MG TABLET PO SCH (21:10)
[2018-08-28] MEDS: HEPARIN 5,000 UNIT/ML VIAL SQ SCH (21:55)
[2018-08-29] MEDS: PIPERACILLIN SODIUM/TAZOBACTAM 3.375 GM in DEXTROSE 5% IN WATER 50 ML IV SCH ×5 (00:49→23:57)
[2018-08-29] MEDS: HYDROmorphone 2 MG/ML VIAL IV PRN ×4 (00:50→21:06)
[2018-08-29] MEDS: 0.9 % SODIUM CHLORIDE 10 ML SYRINGE IV SCH ×4 (00:51→21:07)
[2018-08-29] MEDS: oxyCODONE/APAP 5/325MG TABLET PO PRN ×5 (01:43→22:51)
[2018-08-29] MEDS: INSULIN LISPRO 1 UNIT/0.01 ML UNIT SQ SCH ×4 (07:26→21:40)
[2018-08-29 08:39] LABS: Basophils # (Auto) 0 K/mcL (0.0-0.3); Basophils % (Auto) 0.4 % (0.0-2.0); Eosinophils # (Auto) 0.2 K/mcL (0.0-0.7); Eosinophils % (Auto) 2.2 % (0.0-7.0); Granulocytes % (Auto) 60.4 % (38.0-78.0); Hematocrit 26.4 % (41.0-55.0); Hemoglobin 8.6 g/dL (13.5-16.5); Lymphocytes # (Auto) 1.9 K/mcL (1.5-4.8); Lymphocytes % (Auto) 27.1 % (15.5-49.0); Mean Corpuscular HGB Conc 32.5 g/dL (31.0-36.0); Mean Platelet Volume 10.5 fL (7.4-10.4); Monocytes # (Auto) 0.7 K/mcL (0.1-0.9); Monocytes % (Auto) 9.9 % (1.0-12.0); Platelet Count 272 K/mcL (140-440); RBC 3.23 M/mcL (4.50-5.90); Red Cell Distribution Width 16.2 % (11.5-14.5)
[2018-08-29 08:49] LABS: ALT/SGPT 13 U/l (0-40); AST/SGOT 19 U/l (0-37); Albumin 2.5 gm/dL (3.2-5.2); Albumin/Globulin Ratio 0.7 (1.0-2.3); Alkaline Phosphatase 88 U/L (39-117); Bilirubin,Direct < 0.2 mg/dL (0.0-0.3); Bilirubin,Total 0.3 mg/dL (0.0-1.0); Blood Urea Nitrogen 20 mg/dl (8-23); Calcium 8.5 mg/dl (8.6-10.4); Carbon Dioxide 26 mmol/L (22-30); Chloride 98 mmol/L (96-108); Globulin 3.6 gm/dL (2.2-3.7); Glomerular Filtration Rate 64; Glucose 55 mg/dL (70-105); Lactate Dehydrogenase 283 U/L (94-250); Magnesium 1.5 mg/dL (1.6-2.5); Phosphorous 3.9 mg/dL (2.7-4.5); Potassium 3.6 mmol/L (3.3-5.1); Sodium 141 mmol/L (133-145); Triglycerides 138 mg/dl (<150); Uric Acid 4.7 mg/dL (2.5-8.0)
[2018-08-29] MEDS: ALLOPURINOL 100 MG TABLET PO SCH (08:50)
[2018-08-29] MEDS: VITAMIN E (DL,TOCOPHERYL ACET) 400 UNIT CAPSULE PO SCH (08:50)
[2018-08-29] MEDS: VITAMIN D3 400 UNIT TABLET PO SCH (08:50)
[2018-08-29] MEDS: PREGABALIN 75 MG CAPSULE PO SCH ×4 (08:50→21:40)
[2018-08-29] MEDS: CALCITRIOL 0.25 MCG CAPSULE PO SCH ×2 (08:50→21:40)
[2018-08-29] MEDS: CARVEDILOL 12.5 MG TABLET PO SCH (08:50)
[2018-08-29] MEDS: ESCITALOPRAM 10 MG TABLET PO SCH (08:51)
[2018-08-29] MEDS: ISOSORBIDE MONONITRATE 60 MG TAB.XL.24H PO SCH (08:51)
[2018-08-29] MEDS: TORSEMIDE 10 MG TABLET PO SCH ×2 (08:51→11:26)
[2018-08-29] MEDS: metFORMIN 500 MG TABLET PO SCH ×3 (08:51→09:11)
[2018-08-29] MEDS: MULTIVIT,THER IRON,CA,FA & MIN 1 TABLET PO SCH (08:51)
[2018-08-29] MEDS: POTASSIUM CHLORIDE 20 MEQ TABLET PO SCH (08:52)
[2018-08-29] MEDS: LISINOPRIL 10 MG TABLET PO SCH (08:52)
[2018-08-29] MEDS: ASPIRIN 81 MG TAB.CHEW CHEWED SCH (08:52)
[2018-08-29] MEDS: ENOXAPARIN 40 MG/0.4 ML SYRINGE SQ SCH (08:52)
[2018-08-29] MEDS: glipiZIDE 2.5 MG TAB.XL.24H PO SCH ×2 (08:53→16:57)
[2018-08-29] MEDS: LACTOBACILLUS 1 CAPSULE PO SCH ×2 (09:00→21:40)
[2018-08-29] MEDS: VIT A,C & E/LUTEIN/MINERALS TABLET PO SCH (09:00)
[2018-08-29] MEDS: amLODIPine 5 MG TABLET PO SCH (09:00)
[2018-08-29] MEDS ORDERED: MAGNESIUM SULFATE 2 GM/50 ML BAG IV ONE (09:08)
[2018-08-29] MEDS: INSULIN GLARGINE, HUMAN 1 UNIT/0.01 ML SQ SCH ×3 (09:22→21:41)
--- NOTE | 2018-08-29 11:43 | Internal Med Progress Note ---
Medical - PN: Subj Patient information: Note initiated : 08/29/18 at 11:41 am Service Date, if different from initiated Date: [] Patient: Quintin Avalos a 63 y/o M admitted on 08/26/18 for Wound. Chief Complaint: [] Interval history: Mr. Avalos is a 63 year old M Transferred to [facility] for further wound care of a infected decubitus ulcer. Patient originally presented to [facility] the middle of June for infected decubitus wound with sepsis and DKA and was transferred up to [place] and was at there for 19 days and then discharged home. He was seen in [place] by surgeon who did debridement on the . A week later to the wound was shown to primary care provider Dr. Doherty to request the patient come to the ED. Patient was admitted and treated with IV antibiotics and was taken for OR debr idement on the . The wound is debrided down to the bone and there has been eschar noted. An ESR was done today which is 108 CRP was 6. There is concern for developing osteomyelitis. [facility] does not have MRI for the next 4 days and their surgeon is gone for the next 4 days as well. This is requested to transfer for further wound care and imaging as we have MRI available. Case is also discussed with Dr. Mariscal and Dr. Garcia. Dr. kaplan will follow. MRI for tomorrow. Patient has no complaints at this time other than the sore bottom. 08/27 No overnight events. Seen by Dr. kaplan this morning. IV antibiotics continuing. MRI this morning. No new complaints. 08/28 Pain controlled, no overnight events. No new complaints. Did have some diarrhea yesterday. Stool softener stopped. 08/29 Patient seen and examined, no acute overnight events. Glucose level a bit low on basic metabolic profile, cut back on the dose of Lantus. Patient has some pain at the wound site, Wound care surgeon is awaiting consult from general surgery to formulate a plan. Infectious disease provider also is following. There is consideration for diversion of feces for wound healing, patient may benefit from a diverting ileostomy or colostomy according to the ID physician precious carias the wound care physician. The wound care physician is also requesting I believe a urinary diversion, and he is discussing this with the urologist. Patient does not have any fever or chills, and is hemodynamically stable at this point. IV antibiotics as per infectious disease Wound care as per Dr. Reyes Pertinent ROS: Denies headache, dizziness Denies chest pain, palpitations Denies cough or shortness of breath Denies abdominal pain, nausea or vomiting. - Constitutional Vitals: Vital Signs Temp Pulse Resp BP Pulse Ox 97.8 F 70 20 138/67 95 08/29/18 07:17 08/29/18 08:00 08/29/18 08:00 08/29/18 07:17 08/29/18 08:00 Period Temp Pulse Resp BP Sys/[place]lin Pulse Ox Last 24 Hr 97.8 F-99.6 F 70-105 14-20 107-144/64-81 94-95 Intake and Output 08/28/18 08/29/18 08/29/18 21:59 05:59 13:59 Intake Total 1680 500 830 Output Total 1250 125 350 Balance 430 375 480 Weight 314 lb Intake & Output: Intake & Output 08/28/18 08/29/18 08/29/18 21:59 05:59 13:59 Intake Total 1680 500 830 Output Total 1250 125 350 Balance 430 375 480 Weight 314 lb Intake: IV 50 50 50 Zosyn 3.375 gm In Dextrose 5% 50 50 50 in Water 50 ml @ 100 mls/hr IV Q6H [facility] Rx#:[id number] Oral 1630 450 780 Output: Void Amount 1250 125 350 Urine/Stool Mix 0 Other: Meal Dinner HS Snack Breakfast Percent of Meal Consumed 100% 100% 100% Feeding Ability Independent Independent Urine Appearance Clear Urine Color Bright Yellow Bright Yellow Urine Odor Normal Stool Size Small Moderate Stool Color Brown Brown Stool Consistency Loose Liquid Loose Exam: Constitutional; Afebrile, cooperative, alert, not in distress. Respiratory system: Air Entry equal on both sides, No crackles or wheezing, no rhonchi. CVS- Rate rhythm regular, S1,S2 heard, no gallop, no rub. Abdomen- Soft nontender abdomen, no organomegaly, no tenderness, no guarding or rigidity, [employer]- AOOx3, moving all extremities, no gross focal deficit noted. large wound noted right buttock, see pics on file Medical - PN: Obj Da - Labs CBC & Chem 7: 08/29/18 04:53 08/29/18 04:53 Labs: Abnormal Lab Results 08/29/18 08/29/18 08/28/18 04:53 04:53 04:15 RBC 3.23 L Hgb 8.6 L Hct 26.4 L RDW 16.2 H MPV 10.5 H Lymph # (Auto) ESR Anion Gap 17.0 H 17.0 H Creatinine Glucose 55 L 65 L Hemoglobin A1c Calcium 8.5 L 8.4 L Phosphorus 4.7 H Magnesium 1.5 L 1.5 L GGT 129 H 153 H Lactate Dehydrogenase 283 H 291 H C-Reactive Protein Albumin 2.5 L 2.6 L Albumin/Globulin Ratio 0.7 L 0.7 L Triglycerides 158 H 08/28/18 08/28/18 08/27/18 04:15 04:15 04:00 RBC 3.39 L Hgb 9.1 L Hct 27.3 L RDW 15.1 H MPV 10.8 H Lymph # (Auto) 1.4 L ESR Anion Gap Creatinine 1.3 H Glucose 118 H Hemoglobin A1c 8.2 H Calcium 8.5 L Phosphorus 4.6 H Magnesium 1.5 L GGT 143 H Lactate Dehydrogenase C-Reactive Protein 6.2 H 3.0 H Albumin 2.7 L Albumin/Globulin Ratio 0.8 L Triglycerides 198 H 08/27/18 04:00 RBC 3.06 L Hgb 8.0 L Hct 25.0 L RDW 15.7 H MPV 10.7 H Lymph # (Auto) ESR 95 H Anion Gap Creatinine Glucose Hemoglobin A1c Calcium Phosphorus Magnesium GGT Lactate Dehydrogenase C-Reactive Protein Albumin Albumin/Globulin Ratio Triglycerides Meds: Medications Acetaminophen (Tylenol) 650 mg PO Q6HP PRN PRN Reason: PAIN/FEVER > 101 Albuterol/Ipratropium (Duoneb) 3 ml NEB Q4HRT PRN PRN Reason: Bronchospasm Allopurinol (Zyloprim) 100 mg PO QDAY [facility] Last Admin: 08/29/18 08:50 Dose: 100 mg Documented by: Amlodipine Besylate (Norvasc) 2.5 mg PO QDAY [facility] Last Admin: 08/29/18 09:00 Dose: 2.5 mg Documented by: Aspirin (Aspirin) 81 mg CHEWED DAILY [facility] Last Admin: 08/29/18 08:52 Dose: 81 mg Documented by: Calcitriol (Rocaltrol) 0.25 mcg PO BID [facility] Last Admin: 08/29/18 08:50 Dose: 0.25 mcg Documented by: Carvedilol (Coreg) 12.5 mg PO QAM [facility] Last Admin: 08/29/18 08:50 Dose: 12.5 mg Documented by: Carvedilol (Coreg) 6.25 mg PO QHS [facility] Last Admin: 08/28/18 21:10 Dose: 6.25 mg Documented by: Dextrose (Dextrose 50%) 0 ml IV UD PRN PRN Reason: Hypoglycemia Diagnostic Test (Pha) (Accu-Chek) 1 each FS [facility] Last Admin: 08/29/18 11:27 Dose: 1 each Documented by: Enoxaparin Sodium (Lovenox) 40 mg SQ DAILY [facility] Last Admin: 08/29/18 08:52 Dose: 40 mg Documented by: Escitalopram Oxalate (Lexapro) 10 mg PO QDAY [facility] Last Admin: 08/29/18 08:51 Dose: 10 mg Documented by: Glipizide (Glucotrol Xl) 2.5 mg PO BIDCC [facility] Last Admin: 08/29/18 08:53 Dose: Not Given Documented by: Glucose (Insta-Glucose) 15 gm PO PRN PRN PRN Reason: Hypoglycemia Hydromorphone HCl (Dilaudid) 0.5 mg IV Q2HP PRN PRN Reason: PAIN LEVEL > 6 Last Admin: 08/29/18 09:21 Dose: 0.5 mg Documented by: Piperacillin Sod/Tazobactam (Sod 3.375 gm/ Dextrose) 50 mls @ 100 mls/hr IV Q6H [facility]; Protocol Last Admin: 08/29/18 11:27 Dose: 100 mls/hr Documented by: Insulin Glargine (Lantus) 50 unit SQ BID [facility] Last Admin: 08/29/18 09:22 Dose: 50 unit Documented by: Insulin Human Lispro (Humalog) 0 unit SQ [facility]; Protocol Last Admin: 08/29/18 11:29 Dose: Not Given Documented by: Iron Carb/Multivit/[place]/Folic Acid (Multivitamin W/Minerals) 1 tab PO DAILY [facility] Last Admin: 08/29/18 08:51 Dose: 1 tab Documented by: Isosorbide Mononitrate (Imdur) 60 mg PO QDAY [facility] Last Admin: 08/29/18 08:51 Dose: 60 mg Documented by: Lactobacillus Rhamnosus (Culturelle) 1 cap PO BID [facility] Last Admin: 08/29/18 09:00 Dose: 1 cap Documented by: Lisinopril (Zestril) 5 mg PO QDAY [facility] Last Admin: 08/29/18 08:52 Dose: 5 mg Documented by: Multivitamins/Minerals (Ocuvite) 1 tab PO DAILY [facility] Last Admin: 08/29/18 09:00 Dose: 1 tab Documented by: Nitroglycerin (Nitrostat) 0.4 mg SL Q5M PRN PRN Reason: Chest Pain Ondansetron HCl (Zofran) 4 mg IV Q6HP PRN PRN Reason: Nausea And Vomiting Oxycodone/Acetaminophen (Percocet 5-325 Mg) 1 - 2 tab PO Q4HP PRN PRN Reason: PAIN LEVEL 3-6 Last Admin: 08/29/18 11:26 Dose: 2 tab Documented by: Potassium Chloride (Kdur) 20 meq PO QAMCC [facility] Last Admin: 08/29/18 08:52 Dose: 20 meq Documented by: Pregabalin (Lyrica) 75 mg PO QID [facility] Last Admin: 08/29/18 08:50 Dose: 75 mg Documented by: Senna (Senokot) 2 tab PO DAILY PRN PRN Reason: Constipation Simvastatin (Zocor) 40 mg PO HS [facility] Last Admin: 08/28/18 21:10 Dose: 40 mg Documented by: Sodium Chloride (Saline Flush) 10 ml IV Q8 [facility] Last Admin: 08/29/18 04:22 Dose: 10 ml Documented by: Torsemide (Demadex) 30 mg PO BID@0800,1200 [facility] Last Admin: 08/29/18 11:26 Dose: 30 mg Documented by: Vitamin D (Vitamin D3) 400 unit PO DAILY [facility] Last Admin: 08/29/18 08:50 Dose: 400 unit Documented by: Vitamin E (Vitamin E) 400 unit PO DAILY [facility] Last Admin: 08/29/18 08:50 Dose: 400 unit Documented by: Medical - PN: A/P - Time Spent With Patient Total time spent is greater than 50% in coordination of care (as documented) at patient's floor/unit and/or counseling patient: - Narrative A/P Narrative: A/P Infected left buttock Ulcer -No e/o Osteomyelitis on MRI -on IV zosyn as per ID -Await surgery/Urology consult, requested by wound care -need for plastic? wound vac? diverting colostomy/urostomy? DM -labile -Lantus and ssi for now -hold metformin CKD stage 3 -stable renal function -on feliciano CAD, s/p CABG -continue home meds, no chest pain reported, on imdur, statin, asa, coreg HTN -stable bp, contiue home meds -on feliciano and beta neil Diastolic heart failure, grade 1 -medical management, stable, not in exacerbation -on diuretic continue same Anemia of chronic disease -monitor Obesity, morbid, bmi 42 -outpatient management Depression -on lexapro, stable DVT hep sq Diet carb consistent/ cardiac FUll code Medical - PN: Qual - VTE Deep Vein Thrombosis/Pulmonary Embolism Present on Admission: No
--- NOTE | 2018-08-29 11:54 | General Surgery Progress Note ---
Subjective Narrative: Note initiated : 08/29/18 at 11:52 am Service Date, if different from initiated Date: [] Patient: Quintin Avalos 63 y/o M admitted on 08/26/18 for Wound. Chief Complaint: [] I saw this patient along with Wound Care Nurse during and after his MIST treatment and dressing change. He denies any systemic or constitutional co mplaints. He was noted to have blood glucose of 55 on BMP this morning, Medication dose being adjusted. Objective Temp Pulse Resp BP Pulse Ox 97.8 F 70 20 138/67 95 08/29/18 07:17 08/29/18 08:00 08/29/18 08:00 08/29/18 07:17 08/29/18 08:00 AVSS. HD Stable. No changes in RASHIDA. L/E: LARGE open Left gluteal region. Still has adherent slough and debris Covering wound surface. MRI is negative for osteomyelitis. Patient AWAITS evaluation by General Surgery and Urology. Have notified Surgery and Urology clinic. Will await recommendations from Drs. Titi Vega and Elmer. - Additional Data Intake & Output - Last 24 hours: Intake & Output 08/27/18 08/28/18 08/29/18 08/30/18 05:59 05:59 05:59 05:59 Intake Total 450 2240 2880 830 Output Total 1325 4700 2575 350 Balance -875 -2460 305 480 Weight 294 lb 8 oz 317 lb 314 lb - Labs 08/29/18 04:53 08/29/18 04:53 Diabetes panel 08/29/18 Range/Units 04:53 Sodium 141 (133-145) mmol/L Potassium 3.6 (3.3-5.1) mmol/L Chloride 98 (96-108) mmol/L Carbon Dioxide 26 (22-30) mmol/L BUN 20 (8-23) mg/dl Creatinine 1.2 (0.7-1.2) mg/dl Glucose 55 L (70-105) mg/dL Calcium 8.5 L (8.6-10.4) mg/dl AST 19 (0-37) U/l ALT 13 (0-40) U/l Alkaline Phosphatase 88 (39-117) U/L Total Protein 6.1 (5.9-8.4) gm/dL Albumin 2.5 L (3.2-5.2) gm/dL Triglycerides 138 (<150) mg/dl Calcium panel 08/29/18 Range/Units 04:53 Calcium 8.5 L (8.6-10.4) mg/dl Phosphorus 3.9 (2.7-4.5) mg/dL Albumin 2.5 L (3.2-5.2) gm/dL Pituitary panel 08/29/18 Range/Units 04:53 Sodium 141 (133-145) mmol/L Potassium 3.6 (3.3-5.1) mmol/L Chloride 98 (96-108) mmol/L Carbon Dioxide 26 (22-30) mmol/L BUN 20 (8-23) mg/dl Creatinine 1.2 (0.7-1.2) mg/dl Glucose 55 L (70-105) mg/dL Calcium 8.5 L (8.6-10.4) mg/dl Adrenal panel 08/29/18 Range/Units 04:53 Sodium 141 (133-145) mmol/L Potassium 3.6 (3.3-5.1) mmol/L Chloride 98 (96-108) mmol/L Carbon Dioxide 26 (22-30) mmol/L BUN 20 (8-23) mg/dl Creatinine 1.2 (0.7-1.2) mg/dl Glucose 55 L (70-105) mg/dL Calcium 8.5 L (8.6-10.4) mg/dl Total Bilirubin 0.3 (0.0-1.0) mg/dL AST 19 (0-37) U/l ALT 13 (0-40) U/l Alkaline Phosphatase 88 (39-117) U/L Total Protein 6.1 (5.9-8.4) gm/dL Albumin 2.5 L (3.2-5.2) gm/dL Assessment and Plan (1) Open wound of left buttock with complication Problem details: MRI report seen and pictures reviewed. SOFT tissue defect at the site of wound with muscle edema and gas open to the surface. NO vasculature and NO bone structure involvement. Status: Acute Current Visit: Yes (2) History of quadruple bypass Problem details: 2000; [place], [place] Status: Chronic Current Visit: No (3) History of back surgery Problem details: Lumbar back fusion - no hardware Status: Chronic Current Visit: No - Narrative A/P Narrative: Assessment: COMPLEX and Complicated post surgical wound. NOT suitable for wound VAC at this time. NEEDS fecal and urinary diversion from this site. Plan: Continue Local wound care / Medical management. Await consults / recommendations. Further recommendations as condition evolves. - Time Spent With Patient Total time spent is greater than 50% in coordination of care (as documented) at patient's floor/unit and/or counseling patient: 15 - 24 minutes
--- NOTE | 2018-08-29 14:29 | General Surgery Consult Note ---
History of Present Illness Patient information: Note initiated : 08/29/18 at 2:20 pm Service Date, if different from initiated Date: [] Patient: Quintin Avalos 63 y/o M admitted on 08/26/18 for Wound. Chief Complaint: [] Reason for consult: other (buttock decubitus ulcer) History of present illness: Patient is being seen at the request of hospitalist and wound care physician for consideration for diverting colostomy for left buttock decubitus ulcer. The patient has an advanced decubitus that has been followed and has shown poor healing. There is some concern that he may have fecal contamination of the decubitus cavity. The patient is mobile and states that he can handle his toile t needs. Though he may get a small amount of fecal matter in his wound. If he wipes wrong. He is aware that with better care He can keep this from happening. He has been made aware that he needs to offload pressure on his bottom and lay on his sides or abdomen to prevent continued pressure in the area. My assessment suggests that this wound can be handled with wound care on an inpatient basis, such as at an LTAC facility until he can get better healing. If this is possible, then the wound can be managed with a wound VAC rather than diverting colostomy. Diverting colostomy in this patient will create another problem that it would be difficult for him to handle and is possible that the colostomy may present a greater problem than his decubitus ulcer. I had a prolonged discussion with the patient and feel comfortable that the addition of the diverting colostomy will not improve his care and may potentially give him additional problems that will be difficult to manage on the long-term. On close questioning, he does not have any urinary contamination of his wound. He avoids readily in the commode and in the urinal bottle and therefore does not need to have urinary diversion of any kind. I will leave the final decision concerning this at the discretion of the urologist. Medications and Allergies Home Medications Medication Instructions Recorded Confirmed Type carvedilol 12.5 mg tablet 12.5 mg PO QAM tab 09/06/14 08/27/18 History cholecalciferol (vitamin D3) 400 400 unit PO QDAY cap 09/06/14 08/28/18 History unit capsule hydrocodone 10 mg-acetaminophen 1 - 2 tab PO Q4HP PRN tab 09/06/14 08/27/18 History 325 mg tablet metformin 500 mg tablet 500 mg PO BID tab 09/06/14 08/27/18 History nitroglycerin 0.4 mg sublingual 0.4 mg SUBLINGUAL Q5-15MIN PRN tab 09/06/14 08/27/18 History tablet rosuvastatin 40 mg tablet 40 mg PO QHS tab 09/06/14 08/27/18 History vitamin E 400 unit capsule 400 unit PO QDAY cap 09/06/14 08/28/18 History escitalopram 10 mg tablet 10 mg PO QDAY 08/06/15 08/27/18 History insulin lispro (U- 100) 100 See Rx Instructions .ROUTE .COMPLEX 08/06/15 06/20/18 History unit/mL subcutaneous cartridge amlodipine 2.5 mg tablet 2.5 mg PO QDAY 07/08/16 08/28/18 History aspirin 81 mg chewable tablet 324 mg PO QDAY tab 07/08/16 08/27/18 History insulin glargine (U-300) conc. 300 See Rx Instructions SUB-Q QDAY ml 07/08/16 06/20/18 History unit/mL (1.5 mL) subcutaneous pen isosorbide mononitrate ER 60 mg 60 mg PO QDAY 07/08/16 08/27/18 History tablet,extended release 24 hr allopurinol 100 mg tablet 100 mg PO QDAY #90 tab 01/18/18 08/28/18 Rx lisinopril 5 mg tablet 5 mg PO QDAY #90 tab 01/26/18 08/27/18 Rx pregabalin 75 mg capsule 75 mg PO QID cap 03/15/18 08/27/18 History potassium chloride ER 20 mEq 20 meq PO QDAY #60 tab 05/25/18 08/27/18 Rx tablet,extended release Calcitriol [Rocaltrol] 0.25 mcg PO BID 08/27/18 08/27/18 History Carvedilol [Coreg] 6.25 mg PO QHS 08/27/18 08/27/18 History Enoxaparin [Lovenox] 40 mg SQ DAILY 08/27/18 08/27/18 History Insulin Glargine, Human [Lantus] 60 unit SQ BID 08/27/18 08/27/18 History Insulin Regular, Human [HumuLIN R] See Protocol IJ ACHS 08/27/18 08/27/18 Histor y Piperacillin Sodium/Tazobactam 3.375 gm IV Q6H 08/27/18 08/27/18 History [Zosyn] Torsemide [Demadex] 30 mg PO BID 08/27/18 08/27/18 History Vanco 1 Gram/250 ml-0.9% NaCl 1 gm IV Q12H 08/27/18 08/27/18 History Vancomycin/0.9 % Sod Chloride 1.25 gm IV Q12H 08/27/18 08/27/18 History [Vanco 1.25 gm/250 ml-0.9% NaCl] Vit A,C & E/Lutein/Minerals 1 tab PO DAILY 08/27/18 08/27/18 History [Ocuvite] fentaNYL CITRATE/PF [Fentanyl 100 50 mcg IV Q4H PRN 08/27/18 08/27/18 History Mcg/2 ml Syringe] glipiZIDE [Glipizide ER] 2.5 mg PO BIDCC 08/27/18 08/27/18 History oxyCODONE/APAP [Percocet 5-325 mg] 1 tab PO Q6H PRN 08/27/18 08/27/18 History Multivit-Min/FA/Lycopen/Lutein 1 each PO DAILY 08/28/18 08/28/18 History [Centrum Silver Tablet] Allergies Allergy/AdvReac Type Severity Reaction Status Date / Time morphine [MORPHINE] AdvReac Mild Hallucinati Verified 08/28/18 08:44 ons Exam Temp Pulse Resp BP Pulse Ox 97.6 F 75 20 133/69 95 08/29/18 12:00 08/29/18 12:00 08/29/18 12:00 08/29/18 12:00 08/29/18 12:00 Results - Labs 08/29/18 04:53 08/29/18 04:53 Abnormal lab results 08/29/18 08/29/18 Range/Units 04:53 04:53 RBC 3.23 L (4.50-5.90) M/mcL Hgb 8.6 L (13.5-16.5) g/dL Hct 26.4 L (41.0-55.0) % RDW 16.2 H (11.5-14.5) % MPV 10.5 H (7.4-10.4) fL Anion Gap 17.0 H (8-16) Glucose 55 L (70-105) mg/dL Calcium 8.5 L (8.6-10.4) mg/dl Magnesium 1.5 L (1.6-2.5) mg/dL GGT 129 H (8-61) U/L Lactate Dehydrogenase 283 H (94-250) U/L Albumin 2.5 L (3.2-5.2) gm/dL Albumin/Globulin Ratio 0.7 L (1.0-2.3) Diabetes panel 08/29/18 Range/Units 04:53 Sodium 141 (133-145) mmol/L Potassium 3.6 (3.3-5.1) mmol/L Chloride 98 (96-108) mmol/L Carbon Dioxide 26 (22-30) mmol/L BUN 20 (8-23) mg/dl Creatinine 1.2 (0.7-1.2) mg/dl Glucose 55 L (70-105) mg/dL Calcium 8.5 L (8.6-10.4) mg/dl AST 19 (0-37) U/l ALT 13 (0-40) U/l Alkaline Phosphatase 88 (39-117) U/L Total Protein 6.1 (5.9-8.4) gm/dL Albumin 2.5 L (3.2-5.2) gm/dL Triglycerides 138 (<150) mg/dl Calcium panel 08/29/18 Range/Units 04:53 Calcium 8.5 L (8.6-10.4) mg/dl Phosphorus 3.9 (2.7-4.5) mg/dL Albumin 2.5 L (3.2-5.2) gm/dL Pituitary panel 08/29/18 Range/Units 04:53 Sodium 141 (133-145) mmol/L Potassium 3.6 (3.3-5.1) mmol/L Chloride 98 (96-108) mmol/L Carbon Dioxide 26 (22-30) mmol/L BUN 20 (8-23) mg/dl Creatinine 1.2 (0.7-1.2) mg/dl Glucose 55 L (70-105) mg/dL Calcium 8.5 L (8.6-10.4) mg/dl Adrenal panel 08/29/18 Range/Units 04:53 Sodium 141 (133-145) mmol/L Potassium 3.6 (3.3-5.1) mmol/L Chloride 98 (96-108) mmol/L Carbon Dioxide 26 (22-30) mmol/L BUN 20 (8-23) mg/dl Creatinine 1.2 (0.7-1.2) mg/dl Glucose 55 L (70-105) mg/dL Calcium 8.5 L (8.6-10.4) mg/dl Total Bilirubin 0.3 (0.0-1.0) mg/dL AST 19 (0-37) U/l ALT 13 (0-40) U/l Alkaline Phosphatase 88 (39-117) U/L Total Protein 6.1 (5.9-8.4) gm/dL Albumin 2.5 L (3.2-5.2) gm/dL All other labs normal. Assessment and Plan (1) Open wound of left buttock with complication It is my assessment that the patient does not need fecal diversion via colostomy at this time. His wounds should be adequately managed with wound VAC therapy and short-term inpatient therapy at an LTAC facility. Status: Acute Priority: High Comment: MRI report seen and pictures reviewed. SOFT tissue defect at the site of wound with muscle edema and gas open to the surface. NO vasculature and NO bone structure involvement. Qualifiers: Encounter type: initial encounter Qualified Code(s): S31.829A - Unspecified open wound of left buttock, initial encounter (2) DM type 2 (diabetes mellitus, type 2) Status: Acute (3) BPH with obstruction/lower urinary tract symptoms Status: Acute Comment: 07/11/2013
--- NOTE | 2018-08-29 15:44 | Consultation ---
DATE OF CONSULTATION: 08/29/2018 REQUESTING PHYSICIAN: Colby Mariscal M.D. HISTORY OF PRESENT ILLNESS: The patient is a 63-year-old gentleman who has an infected decubitus ulcer. He has been treated for this, and I was asked to evaluate him for possible urinary diversion. The patient is able to urinate. He either uses a urinal or stands at the toilet. He denies any difficulty with urination. He does have a good stream. He states that he does not have a problem getting the wound wet because of urine. He presents now for evaluation. PAST MEDICAL HISTORY: See Dr. Palacio's dictation from 08/26/2018. PAST SURGICAL HISTORY: Tonsillectomy, quadruple bypass, nephrectomy, hernia surgery, coronary bypass graft, and back surgery. FAMILY HISTORY: Cardiac arrhythmia. SOCIAL HISTORY: Denies any tobacco or alcohol use. CURRENT MEDICATIONS: Please see the nurse's notes. ALLERGIES: MORPHINE. PHYSICAL EXAMINATION: GENERAL: This is a very pleasant gentleman lying bed in no apparent distress. HEENT: Atraumatic, normocephalic. Extraocular movements are intact. Pupils equal, reactive to light and accommodation. No thyromegaly. LUNGS: Clear to auscultation. HEART: Regular rate and rhythm. ABDOMEN: Soft, nontender, obese. GENITOURINARY: Scrotum without lesion. No hydrocele. No varicocele. Testicles are down in their normal position, normal size and consistency. Meatus in its proper position. Prostate exam was deferred. RECTUM: Positive external hemorrhoids. No lesions. EXTREMITIES: Buttocks positive for decubitus ulcer and the dressing is intact. Extremities are without clubbing, cyanosis or edema. NEUROLOGIC: Cranial nerves II-XII intact. IMPRESSION: Urinary diversion. The patient does not need diversion. He is able to urinate on his own and is controlling this. He does appear to be emptying his bladder. He has very few urinary concerns. I feel at this point the diversion would only cause more problems, leading to infection and other consequences. Therefore, as long as he is able to urinate on his own and the wound is not contaminated with urine, no diversion is needed. I have talked to the patient about this and he understands. I also discussed this with Dr. Vega and he agrees. SMITHA:[facility] Job ID: [id number] Doc ID: [id number] Sky Payne MD
--- NOTE | 2018-08-29 18:16 | General Surgery Progress Note ---
Subjective Narrative: Note initiated : 08/29/18 at 6:10 pm Service Date, if different from initiated Date: [] Patient: Quintin Avalos 63 y/o M admitted on 08/26/18 for Wound. Chief Complaint: [] Reviewed Dr. Titi Vega and Dr. Payne's consults. Appreciate their input. Wound cultures: HEAVY GROWTH of urine and colonic bacteria. COLONIC AND URINARY BACTERIAL colonization / contamination. Blood cultures : Negative. REVIEWED DETAILED INPUT FORM ID Dr. Coreas. Assessment: COMPLEX and COMPLICATED post surgery wound. Still significant slough, biofilm and BIOBURDEN in the wound Continuing colonic and urinary contamination. NOT a suitable site for closed wound VAC placement. Plan: Continue current wound care. HOLD OFF on wound VAC. Explore other options to transfer patient. LTAC or other higher level of care facility. Case Management to assist. Objective Temp Pulse Resp BP Pulse Ox 98.1 F 73 18 135/71 94 08/29/18 15:52 08/29/18 15:52 08/29/18 15:52 08/29/18 15:52 08/29/18 15:52 - Additional Data Intake & Output - Last 24 hours: Intake & Output 08/27/18 08/28/18 08/29/18 08/30/18 05:59 05:59 05:59 05:59 Intake Total 450 2240 2880 2080 Output Total 1325 4700 2575 3350 Balance -875 -2460 305 -1270 Weight 294 lb 8 oz 317 lb 314 lb - Labs 08/30/18 03:57 08/30/18 03:57 Diabetes panel 08/29/18 Range/Units 04:53 Sodium 141 (133-145) mmol/L Potassium 3.6 (3.3-5.1) mmol/L Chloride 98 (96-108) mmol/L Carbon Dioxide 26 (22-30) mmol/L BUN 20 (8-23) mg/dl Creatinine 1.2 (0.7-1.2) mg/dl Glucose 55 L (70-105) mg/dL Calcium 8.5 L (8.6-10.4) mg/dl AST 19 (0-37) U/l ALT 13 (0-40) U/l Alkaline Phosphatase 88 (39-117) U/L Total Protein 6.1 (5.9-8.4) gm/dL Albumin 2.5 L (3.2-5.2) gm/dL Triglycerides 138 (<150) mg/dl Calcium panel 08/29/18 Range/Units 04:53 Calcium 8.5 L (8.6-10.4) mg/dl Phosphorus 3.9 (2.7-4.5) mg/dL Albumin 2.5 L (3.2-5.2) gm/dL Pituitary panel 08/29/18 Range/Units 04:53 Sodium 141 (133-145) mmol/L Potassium 3.6 (3.3-5.1) mmol/L Chloride 98 (96-108) mmol/L Carbon Dioxide 26 (22-30) mmol/L BUN 20 (8-23) mg/dl Creatinine 1.2 (0.7-1.2) mg/dl Glucose 55 L (70-105) mg/dL Calcium 8.5 L (8.6-10.4) mg/dl Adrenal panel 08/29/18 Range/Units 04:53 Sodium 141 (133-145) mmol/L Potassium 3.6 (3.3-5.1) mmol/L Chloride 98 (96-108) mmol/L Carbon Dioxide 26 (22-30) mmol/L BUN 20 (8-23) mg/dl Creatinine 1.2 (0.7-1.2) mg/dl Glucose 55 L (70-105) mg/dL Calcium 8.5 L (8.6-10.4) mg/dl Total Bilirubin 0.3 (0.0-1.0) mg/dL AST 19 (0-37) U/l ALT 13 (0-40) U/l Alkaline Phosphatase 88 (39-117) U/L Total Protein 6.1 (5.9-8.4) gm/dL Albumin 2.5 L (3.2-5.2) gm/dL Assessment and Plan (1) Open wound of left buttock with complication Problem details: MRI report seen and pictures reviewed. SOFT tissue defect at the site of wound with muscle edema and gas open to the surface. NO vasculature and NO bone structure involvement. Status: Acute Current Visit: Yes (2) History of quadruple bypass Problem details: 2000; [place], [place] Status: Chronic Current Visit: No (3) History of back surgery Problem details: Lumbar back fusion - no hardware Status: Chronic Current Visit: No - Time Spent With Patient Total time spent is greater than 50% in coordination of care (as documented) at patient's floor/unit and/or counseling patient:
--- NOTE | 2018-08-29 18:27 | Infectious Disease Consult ---
History of Present Illness Patient information: Note initiated : 08/29/18 at 6:15 pm Service Date, if different from initiated Date: [] Patient: Quintin Avalos 63 y/o M admitted on 08/26/18 for Wound. Chief Complaint: [] Consult date: 08/29/18 Requesting Physician: Jaswant Palacio Reason for Consult: Left buttock ulcer Chief complaint: My butt hurts History of present illness: 63 year old man with recent development of a deep pressure ulcer over left buttock, requiring multiple surgeries was referred to [facility] from [facility] for further evaluation, r/o osteomyelitis. He initially presented to [facility] in the middle of June for an infected decubitus wound with sepsis and DKA. He subseq underwent a prolonged hospital stay at [facility] with receipt of IV antibiotics for about 2 weeks. He was discharged to home ([place]) in June 2018. Around July 16, he developed infection around the left buttock pressure ulcer needing debridement x 2 [ 08/16, 08/24]. Pt reports that he has been afebrile, denied any diarrhea. he is mobile and turn in the bed, and is able to carry out his daily activities with minimal assistance. He reports pain in his left buttock, but controlled with pain medications. Review of Systems All systems PM: reviewed and no additional remarkable complaints except as stated Past History Past family history: not pertinent to current presentation Past social history: Lives with family in [place] Medications and Allergies Home Medications Medication Instructions Recorded Confirmed Type carvedilol 12.5 mg tablet 12.5 mg PO QAM tab 09/06/14 08/27/18 History cholecalciferol (vitamin D3) 400 400 unit PO QDAY cap 09/06/14 08/28/18 History unit capsule hydrocodone 10 mg-acetaminophen 1 - 2 tab PO Q4HP PRN tab 09/06/14 08/27/18 History 325 mg tablet metformin 500 mg tablet 500 mg PO BID tab 09/06/14 08/27/18 History nitroglycerin 0.4 mg sublingual 0.4 mg SUBLINGUAL Q5-15MIN PRN tab 09/06/14 08/27/18 History tablet rosuvastatin 40 mg tablet 40 mg PO QHS tab 09/06/14 08/27/18 History vitamin E 400 unit capsule 400 unit PO QDAY cap 09/06/14 08/28/18 History escitalopram 10 mg tablet 10 mg PO QDAY 08/06/15 08/27/18 History insulin lispro (U- 100) 100 See Rx Instructions .ROUTE .COMPLEX 08/06/15 08/29/18 History unit/mL subcutaneous cartridge amlodipine 2.5 mg tablet 2.5 mg PO QDAY 07/08/16 08/28/18 History aspirin 81 mg chewable tablet 324 mg PO QDAY tab 07/08/16 08/27/18 History insulin glargine (U-300) conc. 300 See Rx Instructions SUB-Q QDAY ml 07/08/16 08/29/18 History unit/mL (1.5 mL) subcutaneous pen isosorbide mononitrate ER 60 mg 60 mg PO QDAY 07/08/16 08/27/18 History tablet,extended release 24 hr allopurinol 100 mg tablet 100 mg PO QDAY #90 tab 01/18/18 08/28/18 Rx lisinopril 5 mg tablet 5 mg PO QDAY #90 tab 01/26/18 08/27/18 Rx pregabalin 75 mg capsule 75 mg PO QID cap 03/15/18 08/27/18 History potassium chloride ER 20 mEq 20 meq PO QDAY #60 tab 05/25/18 08/27/18 Rx tablet,extended release Calcitriol [Rocaltrol] 0.25 mcg PO BID 08/27/18 08/27/18 History Carvedilol [Coreg] 6.25 mg PO QHS 08/27/18 08/27/18 History Enoxaparin [Lovenox] 40 mg SQ DAILY 08/27/18 08/27/18 History Insulin Glargine, Human [Lantus] 60 unit SQ BID 08/27/18 08/27/18 History Insulin Regular, Human [HumuLIN R] See Protocol IJ ACHS 08/27/18 08/27/18 History Piperacillin Sodium/Tazobactam 3.375 gm IV Q6H 08/27/18 08/27/18 History [Zosyn] Torsemide [Demadex] 30 mg PO BID 08/27/18 08/27/18 History Vanco 1 Gram/250 ml-0.9% NaCl 1 gm IV Q12H 08/27/18 08/27/18 History Vancomycin/0.9 % Sod Chloride 1.25 gm IV Q12H 08/27/18 08/27/18 History [Vanco 1.25 gm/250 ml-0.9% NaCl] Vit A,C & E/Lutein/Minerals 1 tab PO DAILY 08/27/18 08/27/18 History [Ocuvite] fentaNYL CITRATE/PF [Fentanyl 100 50 mcg IV Q4H PRN 08/27/18 08/27/18 History Mcg/2 ml Syringe] glipiZIDE [Glipizide ER] 2.5 mg PO BIDCC 08/27/18 08/27/18 History oxyCODONE/APAP [Percocet 5-325 mg] 1 tab PO Q6H PRN 08/27/18 08/27/18 History Multivit-Min/FA/Lycopen/Lutein 1 each PO DAILY 08/28/18 08/28/18 History [Centrum Silver Tablet] Allergies Allergy/AdvReac Type Severity Reaction Status Date / Time morphine [MORPHINE] AdvReac Mild Hallucinati Verified 08/28/18 08:44 ons Physical Examination Vital signs: Temp Pulse Resp BP Pulse Ox 36.7 C 73 18 135/71 94 08/29/18 15:52 08/29/18 15:52 08/29/18 15:52 08/29/18 15:52 08/29/18 15:52 General appearance: no acute distress Eyes pulmonary: nonicteric Auscultation: bilateral: clear Cardiovascular: regular rate and rhythm Gastrointestinal: normoactive bowel sounds Extremities: no edema Musculoskeletal: other (has a single huge ulcer over the left buttock with exposed muscles, foul odor, tender, with some redness around the wound. The ulcer has yellow to dark colored base with adherent exudate) Results - Laboratory Findings CBC and BMP: 08/30/18 03:57 08/30/18 03:57 Abnormal lab findings: Abnormal Labs 08/27/18 08/27/18 08/28/18 04:00 04:00 04:15 RBC 3.06 L 3.39 L Hgb 8.0 L 9.1 L Hct 25.0 L 27.3 L RDW 15.7 H 15.1 H MPV 10.7 H 10.8 H Lymph # (Auto) 1.4 L ESR 95 H Anion Gap Creatinine 1.3 H Glucose 118 H Hemoglobin A1c 8.2 H Calcium 8.5 L Phosphorus 4.6 H Magnesium 1.5 L GGT 143 H Lactate Dehydrogenase C-Reactive Protein 3.0 H Albumin 2.7 L Albumin/Globulin Ratio 0.8 L Triglycerides 198 H 08/28/18 08/28/18 08/29/18 04:15 04:15 04:53 RBC 3.23 L Hgb 8.6 L Hct 26.4 L RDW 16.2 H MPV 10.5 H Lymph # (Auto) ESR Anion Gap 17.0 H Creatinine Glucose 65 L Hemoglobin A1c Calcium 8.4 L Phosphorus 4.7 H Magnesium 1.5 L GGT 153 H Lactate Dehydrogenase 291 H C-Reactive Protein 6.2 H Albumin 2.6 L Albumin/Globulin Ratio 0.7 L Triglycerides 158 H 08/29/18 04:53 RBC Hgb Hct RDW MPV Lymph # (Auto) ESR Anion Gap 17.0 H Creatinine Glucose 55 L Hemoglobin A1c Calcium 8.5 L Phosphorus Magnesium 1.5 L GGT 129 H Lactate Dehydrogenase 283 H C-Reactive Protein Albumin 2.5 L Albumin/Globulin Ratio 0.7 L Triglycerides Microbiology: Microbiology 08/26/18 21:46 Ulcer Gram Stain - Final 08/26/18 21:46 Ulcer Wound Culture - Preliminary Enterobacter cloacae Escherichia coli Strep agalactiae - (group b) Staphylococcus aureus 08/26/18 22:25 Blood Blood Culture - Preliminary 08/26/18 20:32 Blood Blood Culture - Preliminary 08/26/18 21:10 Nose MRSA (PCR) - Final 08/26/18 21:48 Ulcer MRSA Screen - Final Assessment and Plan - Narrative A/P Narrative: A: 1. Left buttock deep pressure ulcer with significant soft tissue involvement: MRI neg for osteomyelitis - wound looks infected with exudate and foul odor - seems Stage 3-4 - superficial Cx (most of which represents fecal keiko) growing Enterobacter, E coli [both fleming nearly fleming sensitive), along with (Gp B Strep and Staph aureus) - baseline ESR 95, CRP 6.2 2. No signs of sepsis Recommendations: - Continue IV Zosyn 3.375 gm q6 hrs for now - await final sensi on Staph aureus. If MRSA, will recommend decolonization and come up with home going PO antibiotic regimen for it. For gram negative, and Gp B Strept; Levofloxacin 750 mg q24 PO is a good choice as discharge choice - No need for PICC line - For patient buttock wound to heal completely, consider temporary diverting colostomy. The wound is at higher risk for progressing to chronc osteomyelitis. In addition, it is so deep that all of it might not heal and will need a anil- fascial flap; which would need a uncontaminated field. Considering the pt is mobile and can wipe and move around, the close proximity of anal verge to the wound and recovery of fecal keiko from the wound currently suggests ongoing fecal contamination. Continued antibiotic use with daily fecal contamination (a small amount of feces has billions of bacteria) will lead to selection pressure on antibiotics and development of antibiotic resistance further complicating mir mcgovern's recovery options. Considering the size of wound, need for plastic surgery for a myofascial flap at a later stage; he would benefit from a referral to a tertiary care center. will follow Norbert Coreas MD Infectious diseases
[2018-08-29] MEDS: CARVEDILOL 6.25 MG TABLET PO SCH (21:40)
[2018-08-29] MEDS: SIMVASTATIN 40 MG TABLET PO SCH (21:40)
[2018-08-30] MEDS: HYDROmorphone 2 MG/ML VIAL IV PRN ×5 (00:27→22:18)
[2018-08-30] MEDS: oxyCODONE/APAP 5/325MG TABLET PO PRN ×5 (02:49→19:05)
[2018-08-30] MEDS: 0.9 % SODIUM CHLORIDE 10 ML SYRINGE IV SCH ×3 (05:09→22:17)
[2018-08-30] MEDS: PIPERACILLIN SODIUM/TAZOBACTAM 3.375 GM in DEXTROSE 5% IN WATER 50 ML IV SCH ×4 (05:10→23:18)
[2018-08-30 05:57] LABS: Basophils # (Auto) 0 K/mcL (0.0-0.3); Basophils % (Auto) 0.2 % (0.0-2.0); Eosinophils # (Auto) 0.5 K/mcL (0.0-0.7); Eosinophils % (Auto) 5.8 % (0.0-7.0); Granulocytes % (Auto) 60.9 % (38.0-78.0); Hematocrit 25.6 % (41.0-55.0); Hemoglobin 8.3 g/dL (13.5-16.5); Lymphocytes # (Auto) 1.8 K/mcL (1.5-4.8); Lymphocytes % (Auto) 22.3 % (15.5-49.0); Mean Cell Volume 81.6 fL (80.0-100.0); Mean Corpuscular HGB Conc 32.5 g/dL (31.0-36.0); Mean Platelet Volume 10.3 fL (7.4-10.4); Monocytes # (Auto) 0.9 K/mcL (0.1-0.9); Monocytes % (Auto) 10.8 % (1.0-12.0); Platelet Count 253 K/mcL (140-440); RBC 3.14 M/mcL (4.50-5.90); Red Cell Distribution Width 15.9 % (11.5-14.5); WBC 8.1 K/mcL (4.5-11.0)
[2018-08-30 06:14] LABS: ALT/SGPT 14 U/l (0-40); AST/SGOT 17 U/l (0-37); Albumin 2.6 gm/dL (3.2-5.2); Albumin/Globulin Ratio 0.8 (1.0-2.3); Alkaline Phosphatase 80 U/L (39-117); Bilirubin,Direct < 0.2 mg/dL (0.0-0.3); Bilirubin,Total 0.3 mg/dL (0.0-1.0); Blood Urea Nitrogen 23 mg/dl (8-23); Calcium 8.5 mg/dl (8.6-10.4); Carbon Dioxide 28 mmol/L (22-30); Chloride 97 mmol/L (96-108); Globulin 3.3 gm/dL (2.2-3.7); Glomerular Filtration Rate 71; Glucose 65 mg/dL (70-105); Lactate Dehydrogenase 229 U/L (94-250); Magnesium 1.9 mg/dL (1.6-2.5); Potassium 3.5 mmol/L (3.3-5.1); Sodium 138 mmol/L (133-145); Triglycerides 154 mg/dl (<150)
[2018-08-30] MEDS ORDERED: POTASSIUM CHLORIDE 20 MEQ PACKET PO ONE (07:41)
[2018-08-30] MEDS: INSULIN LISPRO 1 UNIT/0.01 ML UNIT SQ SCH ×4 (07:53→22:05)
[2018-08-30] MEDS: VIT A,C & E/LUTEIN/MINERALS TABLET PO SCH (08:12)
[2018-08-30] MEDS: ASPIRIN 81 MG TAB.CHEW CHEWED SCH (08:12)
[2018-08-30] MEDS: ISOSORBIDE MONONITRATE 60 MG TAB.XL.24H PO SCH (08:12)
[2018-08-30] MEDS: ESCITALOPRAM 10 MG TABLET PO SCH (08:12)
[2018-08-30] MEDS: CALCITRIOL 0.25 MCG CAPSULE PO SCH ×2 (08:12→22:06)
[2018-08-30] MEDS: LISINOPRIL 10 MG TABLET PO SCH (08:13)
[2018-08-30] MEDS: ALLOPURINOL 100 MG TABLET PO SCH (08:13)
[2018-08-30] MEDS: MULTIVIT,THER IRON,CA,FA & MIN 1 TABLET PO SCH (08:13)
[2018-08-30] MEDS: amLODIPine 5 MG TABLET PO SCH (08:13)
[2018-08-30] MEDS: LACTOBACILLUS 1 CAPSULE PO SCH ×2 (08:13→22:04)
[2018-08-30] MEDS: CARVEDILOL 12.5 MG TABLET PO SCH (08:13)
[2018-08-30] MEDS: POTASSIUM CHLORIDE 20 MEQ TABLET PO SCH (08:14)
[2018-08-30] MEDS: glipiZIDE 2.5 MG TAB.XL.24H PO SCH ×2 (08:14→17:38)
[2018-08-30] MEDS: INSULIN GLARGINE, HUMAN 1 UNIT/0.01 ML SQ SCH ×2 (08:15→22:04)
[2018-08-30] MEDS: ENOXAPARIN 40 MG/0.4 ML SYRINGE SQ SCH (08:15)
[2018-08-30] MEDS: PREGABALIN 75 MG CAPSULE PO SCH ×4 (08:33→22:04)
[2018-08-30] MEDS: TORSEMIDE 10 MG TABLET PO SCH ×2 (08:33→11:37)
[2018-08-30] MEDS: VITAMIN E (DL,TOCOPHERYL ACET) 400 UNIT CAPSULE PO SCH (08:33)
[2018-08-30] MEDS: VITAMIN D3 400 UNIT TABLET PO SCH (08:33)
--- NOTE | 2018-08-30 08:54 | General Surgery Progress Note ---
Subjective Narrative: Note initiated : 08/30/18 at 8:52 am Service Date, if different from initiated Date: [] Patient: Quintin Avalos 63 y/o M admitted on 08/26/18 for Wound. Chief Complaint: [] Patient seen on rounds with Sola JAQUEZ, Inpatient wound care nurse and Whitley RN. Spoke with patient at length and answered all his questions. Different case scenarios discussed. Answered all his Qs. Objective Temp Pulse Resp BP Pulse Ox 98.5 F 77 16 122/74 96 08/30/18 06:47 08/30/18 06:47 08/30/18 06:47 08/30/18 06:47 08/30/18 06:47 AVSS> No changes RASHIDA. Local wound care ongoing. - Additional Data Intake & Output - Last 24 hours: Intake & Output 08/28/18 08/29/18 08/30/18 08/31/18 05:59 05:59 05:59 05:59 Intake Total 2240 2880 3155 50 Output Total 4700 2575 4025 Balance -2460 305 -870 50 Weight 317 lb 314 lb 316 lb - Labs 08/30/18 03:57 08/30/18 03:57 Diabetes panel 08/30/18 Range/Units 03:57 Sodium 138 (133-145) mmol/L Potassium 3.5 (3.3-5.1) mmol/L Chloride 97 (96-108) mmol/L Carbon Dioxide 28 (22-30) mmol/L BUN 23 (8-23) mg/dl Creatinine 1.1 (0.7-1.2) mg/dl Glucose 65 L (70-105) mg/dL Calcium 8.5 L (8.6-10.4) mg/dl AST 17 (0-37) U/l ALT 14 (0-40) U/l Alkaline Phosphatase 80 (39-117) U/L Total Protein 5.9 (5.9-8.4) gm/dL Albumin 2.6 L (3.2-5.2) gm/dL Triglycerides 154 H (<150) mg/dl Calcium panel 08/30/18 Range/Units 03:57 Calcium 8.5 L (8.6-10.4) mg/dl Phosphorus 4.0 (2.7-4.5) mg/dL Albumin 2.6 L (3.2-5.2) gm/dL Pituitary panel 08/30/18 Range/Units 03:57 Sodium 138 (133-145) mmol/L Potassium 3.5 (3.3-5.1) mmol/L Chloride 97 (96-108) mmol/L Carbon Dioxide 28 (22-30) mmol/L BUN 23 (8-23) mg/dl Creatinine 1.1 (0.7-1.2) mg/dl Glucose 65 L (70-105) mg/dL Calcium 8.5 L (8.6-10.4) mg/dl Adrenal panel 08/30/18 Range/Units 03:57 Sodium 138 (133-145) mmol/L Potassium 3.5 (3.3-5.1) mmol/L Chloride 97 (96-108) mmol/L Carbon Dioxide 28 (22-30) mmol/L BUN 23 (8-23) mg/dl Creatinine 1.1 (0.7-1.2) mg/dl Glucose 65 L (70-105) mg/dL Calcium 8.5 L (8.6-10.4) mg/dl Total Bilirubin 0.3 (0.0-1.0) mg/dL AST 17 (0-37) U/l ALT 14 (0-40) U/l Alkaline Phosphatase 80 (39-117) U/L Total Protein 5.9 (5.9-8.4) gm/dL Albumin 2.6 L (3.2-5.2) gm/dL Assessment and Plan (1) Open wound of left buttock with complication Problem details: MRI report seen and pictures reviewed. SOFT tissue defect at the site of wound with muscle edema and gas open to the surface. NO vasculature and NO bone structure involvement. Status: Acute Current Visit: Yes (2) History of quadruple bypass Problem details: 2000; [place], [place] Status: Chronic Current Visit: No (3) History of back surgery Problem details: Lumbar back fusion - no hardware Status: Chronic Current Visit: No - Time Spent With Patient Total time spent is greater than 50% in coordination of care (as documented) at patient's floor/unit and/or counseling patient: Assessment: Appreciate ongoing developments. Contact made with LTAC facility . Plan: Continue current management. Will speak Doctor to Doctor or Nurse at LTAC. Plan reviewed with Whitley JAQUEZ. 15 - 24 minutes
--- NOTE | 2018-08-30 14:38 | General Surgery Progress Note ---
Subjective Patient reports: feels better, pain is less, flatus, bowel movement, afebrile Narrative: Note initiated : 08/30/18 at 2:37 pm Service Date, if different from initiated Date: [] Patient: Quintin Avalos 63 y/o M admitted on 08/26/18 for Wound. Chief Complaint: [63-year-old male with history of large left buttock abscess that has been previously surgically debrided. Patient admitted to this facility on August 17 for further treatment of large decubitus ulcer. He previously was treated at [facility] in June for 19 days and was discharged. He was followed up in [place] and had surgical debridement of July and July. He was transferred here for further care because of lack of surgeon and lack of MRI for follow-up evaluation. He presented with a 11 x 9 x 6 cm left medial buttock cavity with extension down to the presacral area. MRI was done and it does not reveal any osteomyelitis. Patient is mobile and is active in his care. He needs to have further surgical debridement followed by wound VAC placement. He would benefit from being treated at a long-term LTAC center to allow h ealing. I have been asked to perform the debridement and place a wound VAC system. Patient will then be transferred to an LTAC facility for long-term care.] Pertinent ROS: Chronic backache. Chronic dry mouth. Pedal edema Additional PMFSH (Level 3 Only): History of hypertension. Diabetes mellitus type 2 insulin-dependent. Coronary artery disease, status post four-vessel bypass in 2000 and in 2013 Chronic kidney disease. Solitary kidney status post nephrectomy in 1998. BPH with lower urinary tract symptoms. Left flank incisional hernia repair with mesh Surgery Four-vessel coronary artery bypass graft 2000 in 2013 Nephrectomy 1998. Lumbar fusion. Family history of lymphoma and breast cancer. Social history uses smokeless tobacco frequently. Denies alcohol use. 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 Objective Temp Pulse Resp BP Pulse Ox 98.5 F 75 16 122/67 96 08/30/18 12:00 08/30/18 12:00 08/30/18 12:00 08/30/18 12:00 08/30/18 12:00 - Additional Data Intake & Output - Last 24 hours: Intake & Output 08/28/18 08/29/18 08/30/18 08/31/18 05:59 05:59 05:59 05:59 Intake Total 2240 2880 3155 450 Output Total 6170 2595 4025 Balance -2460 305 -870 450 Weight 317 lb 314 lb 316 lb - General physical appearance well developed, well nourished, no distress - Eyes PERRL, normal ocular movement - ENT normal pinna, normal nares, normal mucosa, no congestion, decreased hearing, other (patient is edentulous and wears full dentures) - Neck no masses, no bruits, trachea midline, no lymphadenopathy, no venous distension - Respiratory normal expansion, normal respiratory effort, clear to auscultation - Cardiovascular Cardiovascular exam: Present: normal rate and rhythm, RRR, +S1, +S2. Absent: JVD, tachycardia - Abdomen non tender, bowel sounds (present), surgical scars (none), masses (none) - Rectum normal sphincter tone, no hemorrhoids, no tenderness, no masses, other (large, deep cavitary lesion of the left medial buttock with some older and some inflamed tissue with tunneling cephalad; will not adequately visualized in bed) - Integumentary no rash, no growths, no abnormal pigmentation - Neurologic normal coordination, normal sensation - Musculoskeletal normal gait, normal posture - Psychiatric oriented to time, oriented to person, oriented to place, speech is normal, memory intact - Labs 08/30/18 03:57 08/30/18 03:57 Diabetes panel 08/30/18 Range/Units 03:57 Sodium 138 (133-145) mmol/L Potassium 3.5 (3.3-5.1) mmol/L Chloride 97 (96-108) mmol/L Carbon Dioxide 28 (22-30) mmol/L BUN 23 (8-23) mg/dl Creatinine 1.1 (0.7-1.2) mg/dl Glucose 65 L (70-105) mg/dL Calcium 8.5 L (8.6-10.4) mg/dl AST 17 (0-37) U/l ALT 14 (0-40) U/l Alkaline Phosphatase 80 (39-117) U/L Total Protein 5.9 (5.9-8.4) gm/dL Albumin 2.6 L (3.2-5.2) gm/dL Triglycerides 154 H (<150) mg/dl Calcium panel 08/30/18 Range/Units 03:57 Calcium 8.5 L (8.6-10.4) mg/dl Phosphorus 4.0 (2.7-4.5) mg/dL Albumin 2.6 L (3.2-5.2) gm/dL Pituitary panel 08/30/18 Range/Units 03:57 Sodium 138 (133-145) mmol/L Potassium 3.5 (3.3-5.1) mmol/L Chloride 97 (96-108) mmol/L Carbon Dioxide 28 (22-30) mmol/L BUN 23 (8-23) mg/dl Creatinine 1.1 (0.7-1.2) mg/dl Glucose 65 L (70-105) mg/dL Calcium 8.5 L (8.6-10.4) mg/dl Adrenal panel 08/30/18 Range/Units 03:57 Sodium 138 (133-145) mmol/L Potassium 3.5 (3.3-5.1) mmol/L Chloride 97 (96-108) mmol/L Carbon Dioxide 28 (22-30) mmol/L BUN 23 (8-23) mg/dl Creatinine 1.1 (0.7-1.2) mg/dl Glucose 65 L (70-105) mg/dL Calcium 8.5 L (8.6-10.4) mg/dl Total Bilirubin 0.3 (0.0-1.0) mg/dL AST 17 (0-37) U/l ALT 14 (0-40) U/l Alkaline Phosphatase 80 (39-117) U/L Total Protein 5.9 (5.9-8.4) gm/dL Albumin 2.6 L (3.2-5.2) gm/dL Assessment and Plan (1) Open wound of left buttock with complication Problem details: MRI report seen and pictures reviewed. SOFT tissue defect at the site of wound with muscle edema and gas open to the surface. NO vasculatu re and NO bone structure involvement. Status: Acute Assessment and plan: Patient was counseled for surgical debridement with placement of wound VAC system under anesthesia tomorrow Current Visit: Yes (2) DM type 2 (diabetes mellitus, type 2) Status: Acute Current Visit: No (3) BPH with obstruction/lower urinary tract symptoms Problem details: 07/11/2013 Status: Acute Current Visit: No - Time Spent With Patient Total time spent is greater than 50% in coordination of care (as documented) at patient's floor/unit and/or counseling patient:
--- NOTE | 2018-08-30 14:42 | Internal Med Progress Note ---
Medical - PN: Subj Patient information: Note initiated : 08/30/18 at 2:34 pm Service Date, if different from initiated Date: [] Patient: Quintin Avalos a 63 y/o M admitted on 08/26/18 for Wound. Chief Complaint: [] Interval history: Mr. Avalos is a 63 year old M Transferred to [facility] for further wound care of a infected decubitus ulcer. Patient originally presented to [facility] the middle of June for infected decubitus wound with sepsis and DKA and was transferred up to [place] and was at there for 19 days and then discharged home. He was seen in [place] by surgeon who did debridement on the . A week later to the wound was shown to primary care provider Dr. Doherty to request the patient come to the ED. Patient was admitted and treated with IV antibiotics and was taken for OR melanie acosta on the . The wound is debrided down to the bone and there has been eschar noted. An ESR was done today which is 108 CRP was 6. There is concern for developing osteomyelitis. [facility] does not have MRI for the next 4 days and their surgeon is gone for the next 4 days as well. This is requested to transfer for further wound care and imaging as we have MRI available. Case is also discussed with Dr. Mariscal and Dr. Garcia. Dr. kaplan will follow. MRI for tomorrow. Patient has no complaints at this time other than the sore bottom. 08/27 No overnight events. Seen by Dr. kaplan this morning. IV antibiotics continuing. MRI this morning. No new complaints. 08/28 Pain controlled, no overnight events. No new complaints. Did have some diarrhea yesterday. Stool softener stopped. 08/29 Patient seen and examined, no acute overnight events. Glucose level a bit low on basic metabolic profile, cut back on the dose of Lantus. Patient has some pain at the wound site, Wound care surgeon is awaiting consult from general surgery to formulate a plan. Infectious disease provider also is following. There is consideration for diversion of feces for wound healing, patient may benefit from a diverting ileostomy or colostomy according to the ID physician and the wound care physician. The wound care physician is also requesting I believe a urinary diversion, and he is discussing this with the urologist. Patient does not have any fever or chills, and is hemodynamically stable at this point. IV antibiotics as per infectious disease Wound care as per Dr. Reyes 08/30 Pt seen examined, no acute issue reported afebrile, labs stable, on Zosyn for polymicrobial infection which seems to be responding well, I have reviewed the consults from ID, Surgery, Wound care and Urology. At this time the consultants Surgery and Urology believe that a diverting colostomy and a urinary diversion is not indicated. Patient is ambulatory and is able to provide self care for the most part. Patient case was reviewed with LTAC team and it was noted that they would wish for a debridement and wound vac placement and clarification of the need for fecal and urinary diversions (which according to surgey and urology is not indicated at this time). I have asked Dr Vega to consider OR debridement and application of wound vac to the patient, if it would help facilitate wound healing and then transfer to LTAC center. Pertinent ROS: Denies headache, dizziness Denies chest pain, palpitations Denies cough or shortness of breath Denies abdominal pain, nausea or vomiting. - Constitutional Vitals: Vital Signs Temp Pulse Resp BP Pulse Ox 98.5 F 75 16 122/67 96 08/30/18 12:00 08/30/18 12:00 08/30/18 12:00 08/30/18 12:00 08/30/18 12:00 Period Temp Pulse Resp BP Sys/[place] Pulse Ox Last 24 Hr 97.8 F-98.9 F 73-88 16-18 108-135/62-74 94-96 Intake and Output 08/30/18 08/30/18 08/30/18 05:59 13:59 21:59 Intake Total 1025 450 Output Total 100 Balance 925 450 Intake & Output: Intake & Output 08/30/18 08/30/18 08/30/18 05:59 13:59 21:59 Intake Total 1025 450 Output Total 100 Balance 925 450 Intake: IV 50 50 Zosyn 3.375 gm In Dextrose 5% 50 50 in Water 50 ml @ 100 mls/hr IV Q6H [facility] Rx#:[id number] Oral 975 400 Output: Void Amount 100 Other: Meal Breakfast Percent of Meal Consumed 100% Urine Appearance Clear Urine Color Bright Yellow Urine Odor Normal Stool Size Moderate Stool Color Brown Stool Consistency Loose Soft # Bowel Movements 1 Exam: Constitutional; Afebrile, cooperative, alert, not in distress. Respiratory system: Air Entry equal on both sides, No crackles or wheezing, no rhonchi. CVS- Rate rhythm regular, S1,S2 heard, no gallop, no rub. Abdomen- Soft nontender abdomen, no organomegaly, no tenderness, no guarding or rigidity, PROCEDURES ANALYST- AOOx3, moving all extremities, no gross focal deficit noted. Grade 4 ulcer 10x12 cms with slough at base, no purulent discharge noted. Medical - PN: Obj Da - Labs CBC & Chem 7: 08/30/18 03:57 08/30/18 03:57 Labs: Abnormal Lab Results 08/30/18 08/30/18 08/29/18 03:57 03:57 04:53 RBC 3.14 L Hgb 8.3 L Hct 25.6 L RDW 15.9 H MPV Lymph # (Auto) Anion Gap 17.0 H Glucose 65 L 55 L Calcium 8.5 L 8.5 L Phosphorus Magnesium 1.5 L GGT 112 H 129 H Lactate Dehydrogenase 283 H C-Reactive Protein Albumin 2.6 L 2.5 L Albumin/Globulin Ratio 0.8 L 0.7 L Triglycerides 154 H 08/29/18 08/28/18 08/28/18 04:53 04:15 04:15 RBC 3.23 L Hgb 8.6 L Hct 26.4 L RDW 16.2 H MPV 10.5 H Lymph # (Auto) Anion Gap 17.0 H Glucose 65 L Calcium 8.4 L Phosphorus 4.7 H Magnesium 1.5 L GGT 153 H Lactate Dehydrogenase 291 H C-Reactive Protein 6.2 H Albumin 2.6 L Albumin/Globulin Ratio 0.7 L Triglycerides 158 H 08/28/18 04:15 RBC 3.39 L Hgb 9.1 L Hct 27.3 L RDW 15.1 H MPV 10.8 H Lymph # (Auto) 1.4 L Anion Gap Glucose Calcium Phosphorus Magnesium GGT Lactate Dehydrogenase C-Reactive Protein Albumin Albumin/Globulin Ratio Triglycerides Meds: Medications Acetaminophen (Tylenol) 650 mg PO Q6HP PRN PRN Reason: PAIN/FEVER > 101 Albuterol/Ipratropium (Duoneb) 3 ml NEB Q4HRT PRN PRN Reason: Bronchospasm Allopurinol (Zyloprim) 100 mg PO QDAY [facility] Last Admin: 08/30/18 08:13 Dose: 100 mg Documented by: Amlodipine Besylate (Norvasc) 2.5 mg PO QDAY [facility] Last Admin: 08/30/18 08:13 Dose: 2.5 mg Documented by: Aspirin (Aspirin) 81 mg CHEWED DAILY [facility] Last Admin: 08/30/18 08:12 Dose: 81 mg Documented by: Calcitriol (Rocaltrol) 0.25 mcg PO BID [facility] Last Admin: 08/30/18 08:12 Dose: 0.25 mcg Documented by: Carvedilol (Coreg) 12.5 mg PO QAM [facility] Last Admin: 08/30/18 08:13 Dose: 12.5 mg Documented by: Carvedilol (Coreg) 6.25 mg PO QHS [facility] Last Admin: 08/29/18 21:40 Dose: 6.25 mg Documented by: Dextrose (Dextrose 50%) 0 ml IV UD PRN PRN Reason: Hypoglycemia Diagnostic Test (Pha) (Accu-Chek) 1 each FS ACHS [facility] Last Admin: 08/30/18 11:37 Dose: 1 each Documented by: Enoxaparin Sodium (Lovenox) 40 mg SQ DAILY [facility] Last Admin: 08/30/18 08:15 Dose: 40 mg Documented by: Escitalopram Oxalate (Lexapro) 10 mg PO QDAY [facility] Last Admin: 08/30/18 08:12 Dose: 10 mg Documented by: Glipizide (Glucotrol Xl) 2.5 mg PO BIDCC [facility] Last Admin: 08/30/18 08:14 Dose: Not Given Documented by: Glucose (Insta-Glucose) 15 gm PO PRN PRN PRN Reason: Hypoglycemia Hydromorphone HCl (Dilaudid) 0.5 mg IV Q2HP PRN PRN Reason: PAIN LEVEL > 6 Last Admin: 08/30/18 11:38 Dose: 0.5 mg Documented by: Piperacillin Sod/Tazobactam (Sod 3.375 gm/ Dextrose) 50 mls @ 100 mls/hr IV Q6H [facility]; Protocol Last Admin: 08/30/18 11:38 Dose: 100 mls/hr Documented by: Insulin Glargine (Lantus) 40 unit SQ BID [facility] Last Admin: 08/30/18 08:15 Dose: 40 units Documented by: Insulin Human Lispro (Humalog) 0 unit SQ ACHS [facility]; Protocol Last Admin: 08/30/18 11:37 Dose: Not Given Documented by: Iron Carb/Multivit/[place]/Folic Acid (Multivitamin W/Minerals) 1 tab PO DAILY [facility] Last Admin: 08/30/18 08:13 Dose: 1 tab Documented by: Isosorbide Mononitrate (Imdur) 60 mg PO QDAY [facility] Last Admin: 08/30/18 08:12 Dose: 60 mg Documented by: Lactobacillus Rhamnosus (Culturelle) 1 cap PO BID [facility] Last Admin: 08/30/18 08:13 Dose: 1 cap Documented by: Lisinopril (Zestril) 5 mg PO QDAY [facility] Last Admin: 08/30/18 08:13 Dose: 5 mg Documented by: Multivitamins/Minerals (Ocuvite) 1 tab PO DAILY [facility] Last Admin: 08/30/18 08:12 Dose: 1 tab Documented by: Nitroglycerin (Nitrostat) 0.4 mg SL Q5M PRN PRN Reason: Chest Pain Ondansetron HCl (Zofran) 4 mg IV Q6HP PRN PRN Reason: Nausea And Vomiting Oxycodone/Acetaminophen (Percocet 5-325 Mg) 1 - 2 tab PO Q4HP PRN PRN Reason: PAIN LEVEL 3-6 Last Admin: 08/30/18 08:33 Dose: 1 tab Documented by: Potassium Chloride (Kdur) 20 meq PO QAMCC [facility] Last Admin: 08/30/18 08:14 Dose: 20 meq Documented by: Pregabalin (Lyrica) 75 mg PO QID [facility] Last Admin: 08/30/18 08:33 Dose: 75 mg Documented by: Senna (Senokot) 2 tab PO DAILY PRN PRN Reason: Constipation Simvastatin (Zocor) 40 mg PO HS [facility] Last Admin: 08/29/18 21:40 Dose: 40 mg Documented by: Sodium Chloride (Saline Flush) 10 ml IV Q8 [facility] Last Admin: 08/30/18 05:09 Dose: 10 ml Documented by: Torsemide (Demadex) 30 mg PO BID@0800,1200 [facility] Last Admin: 08/30/18 11:37 Dose: 30 mg Documented by: Vitamin D (Vitamin D3) 400 unit PO DAILY [facility] Last Admin: 08/30/18 08:33 Dose: 400 unit Documented by: Vitamin E (Vitamin E) 400 unit PO DAILY [facility] Last Admin: 08/30/18 08:33 Dose: 400 unit Documented by: Medical - PN: A/P - Time Spent With Patient Total time spent is greater than 50% in coordination of care (as documented) at patient's floor/unit and/or counseling patient: - Narrative A/P Narrative: A/P Infected left buttock Ulcer -No e/o Osteomyelitis on MRI -on IV zosyn for polymicrobial infection -Urology and Surgery did not recommend diverting urine, or colostomy at this time. -Will see if we can debride wound and apply a wound vac. DM -labile, glucose level 65 this AM -Lantus dose cut down again, and ssi for now -hold metformin CKD stage 3 -stable renal function -on feliciano CAD, s/p CABG -continue home meds, no chest pain reported, on imdur, statin, asa, coreg HTN -stable bp, contiue home meds -on feliciano and beta neil Diastolic heart failure, grade 1 -medical management, stable, not in exacerbation -on diuretic continue same Anemia of chronic disease -monitor Obesity, morbid, bmi 42 -outpatient management Depression -on lexapro, stable DVT hep sq Diet carb consistent/ cardiac FUll code Medical - PN: Qual - VTE Deep Vein Thrombosis/Pulmonary Embolism Present on Admission: No
--- NOTE | 2018-08-30 20:15 | Infectious Disease Prog Note ---
Subjective Patient information: Note initiated : 08/30/18 at 7:57 pm Service Date, if different from initiated Date: [] Patient: Quintin Avalos 63 y/o M admitted on 08/26/18 for Wound. Chief Complaint: [] Interval history: Pt feels fine. Denied any fever, chills, n/v, diarrhea. Answered his questions. Pt mentioned that his son would like to talk and shared his number. Called his son twice, left a voicemail. Objective Objective Narrative: ao x 3, in nad the left buttock ulcer packed with betadine-soaked gauze. Pt was examined in right lateral position. The left buttock ulcer touches and hangs over the right buttock cheek which is not covered by dressing. Tender to touch with redness in surrounding areas. - Vital Signs Vital signs: Vital Signs Temp Pulse Resp BP Pulse Ox 08/30/18 16:00 37.0 C 72 16 125/63 95 08/30/18 12:00 36.9 C 75 16 122/67 96 08/30/18 06:47 36.9 C 77 16 122/74 96 08/30/18 03:33 37.2 C 76 16 118/66 94 08/30/18 00:03 36.6 C 88 16 108/66 94 Intake and Output 08/30/18 08/30/18 08/30/18 05:59 13:59 21:59 Intake Total 9068 647 8268 Output Total 100 450 Balance 865 273 9769 Intake: IV 50 100 50 Zosyn 3.375 gm In Dextrose 5% 50 100 50 in Water 50 ml @ 100 mls/hr IV Q6H JEANCARLOS Rx#:[id number] Oral 678 280 4625 Output: Void Amount 100 450 Other: Meal Breakfast Lunch Percent of Meal Consumed 100% 100% Urine Appearance Clear Urine Color Bright Yellow Urine Odor Normal Stool Size Moderate Stool Color Brown Stool Consistency Loose Soft # Voids 3 # Bowel Movements 1 2 Intake & Output: Intake & Output 08/30/18 08/30/18 08/30/18 05:59 13:59 21:59 Intake Total 2242 704 5767 Output Total 100 450 Balance 911 953 4331 Intake: IV 50 100 50 Zosyn 3.375 gm In Dextrose 5% 50 100 50 in Water 50 ml @ 100 mls/hr IV Q6H JEANCARLOS Rx#:[id number] Oral 826 640 9901 Output: Void Amount 100 450 Other: Meal Breakfast Lunch Percent of Meal Consumed 100% 100% Urine Appearance Clear Urine Color Bright Yellow Urine Odor Normal Stool Size Moderate Stool Color Brown Stool Consistency Loose Soft # Voids 3 # Bowel Movements 1 2 - Lab 08/30/18 03:57 08/30/18 03:57 Most recent lab results Calcium 8.5 mg/dl (8.6-10.4) L 08/30/18 03:57 Phosphorus 4.0 mg/dL (2.7-4.5) 08/30/18 03:57 Magnesium 1.9 mg/dL (1.6-2.5) 08/30/18 03:57 Microbiology 08/26/18 21:46 Ulcer Gram Stain - Final 08/26/18 21:46 Ulcer Wound Culture - Final Enterobacter cloacae Escherichia coli Strep agalactiae - (group b) Staphylococcus aureus 08/26/18 22:25 Blood Blood Culture - Preliminary 08/26/18 20:32 Blood Blood Culture - Preliminary 08/26/18 21:10 Nose MRSA (PCR) - Final 08/26/18 21:48 Ulcer MRSA Screen - Final Medications Active Medications: Acetaminophen (Tylenol) 650 mg PO Q6HP PRN PRN Reason: PAIN/FEVER > 101 Albuterol/Ipratropium (Duoneb) 3 ml NEB Q4HRT PRN PRN Reason: Bronchospasm Allopurinol (Zyloprim) 100 mg PO QDAY [facility] Last Admin: 08/30/18 08:13 Dose: 100 mg Documented by: Admin: 08/29/18 08:50 Dose: 100 mg Documented by: Admin: 08/28/18 09:57 Dose: 100 mg Documented by: [id number] Amlodipine Besylate (Norvasc) 2.5 mg PO QDAY [facility] Last Admin: 08/30/18 08:13 Dose: 2.5 mg Documented by: Admin: 08/29/18 09:00 Dose: 2.5 mg Documented by: Admin: 08/28/18 09:57 Dose: 2.5 mg Documented by: [id number] Aspirin (Aspirin) 81 mg CHEWED DAILY [facility] Last Admin: 08/30/18 08:12 Dose: 81 mg Documented by: Admin: 08/29/18 08:52 Dose: 81 mg Documented by: Admin: 08/28/18 09:58 Dose: 81 mg Documented by: Admin: 08/27/18 10:41 Dose: 81 mg Documented by: [id number] Calcitriol (Rocaltrol) 0.25 mcg PO BID [facility] Admin: 08/30/18 08:12 Dose: 0.25 mcg Documented by: Admin: 08/29/18 21:40 Dose: 0.25 mcg Documented by: Admin: 08/29/18 08:50 Dose: 0.25 mcg Documented by: Admin: 08/28/18 21:10 Dose: 0.25 mcg Documented by: Admin: 08/28/18 09:56 Dose: 0.25 mcg Documented by: Admin: 08/27/18 21:50 Dose: 0.25 mcg Documented by: Admin: 08/27/18 10:41 Dose: 0.25 mcg Documented by: [id number] Carvedilol (Coreg) 12.5 mg PO QAM [facility] Admin: 08/30/18 08:13 Dose: 12.5 mg Documented by: Admin: 08/29/18 08:50 Dose: 12.5 mg Documented by: Admin: 08/28/18 09:57 Dose: 12.5 mg Documented by: Admin: 08/27/18 10:42 Dose: 12.5 mg Documented by: [id number] Carvedilol (Coreg) 6.25 mg PO QHS [facility] Admin: 08/29/18 21:40 Dose: 6.25 mg Documented by: Admin: 08/28/18 21:10 Dose: 6.25 mg Documented by: Admin: 08/27/18 21:50 Dose: 6.25 mg Documented by: TRISHA Dextrose (Dextrose 50%) 0 ml IV UD PRN PRN Reason: Hypoglycemia Diagnostic Test (Pha) (Accu-Chek) 1 each FS ACHS [facility] Admin: 08/30/18 17:37 Dose: 1 each Documented by: Admin: 08/30/18 11:37 Dose: 1 each Documented by: Admin: 08/30/18 07:53 Dose: 1 each Documented by: Admin: 08/29/18 21:10 Dose: 1 each Documented by: Admin: 08/29/18 16:12 Dose: 1 each Documented by: Admin: 08/29/18 11:27 Dose: 1 each Documented by: Admin: 08/29/18 07:25 Dose: 1 each Documented by: Admin: 08/28/18 21:09 Dose: 1 each Documented by: Admin: 08/28/18 17:39 Dose: 1 each Documented by: Admin: 08/28/18 12:01 Dose: 1 each Documented by: Admin: 08/28/18 07:49 Dose: 1 each Documented by: Admin: 08/27/18 21:50 Dose: 1 each Documented by: Admin: 08/27/18 16:48 Dose: 1 each Documented by: Admin: 08/27/18 13:23 Dose: 1 each Documented by: Admin: 08/27/18 08:00 Dose: 1 each Documented by: Admin: 08/26/18 21:22 Dose: 1 each Documented by: TRISHA Escitalopram Oxalate (Lexapro) 10 mg PO QDAY [facility] Admin: 08/30/18 08:12 Dose: 10 mg Documented by: Admin: 08/29/18 08:51 Dose: 10 mg Documented by: Admin: 08/28/18 09:56 Dose: 10 mg Documented by: Admin: 08/27/18 10:41 Dose: 10 mg Documented by: SCAR Glipizide (Glucotrol Xl) 2.5 mg PO BIDCC [facility] Last Admin: 08/30/18 17:38 Dose: Not Given Documented by: AEFe Non-Admin Reason: Unavailable Admin: 08/30/18 08:14 Dose: Not Given Documented by: AEFe Non-Admin Reason: Unavailable Admin: 08/29/18 16:57 Dose: Not Given Documented by: ARIAN Non-Admin Reason: Unable to complete procedure/test Admin: 08/29/18 08:53 Dose: Not Given Documented by: ARIAN Non-Admin Reason: NOT AVAILABLE Admin: 08/28/18 17:40 Dose: Not Given Documented by: SCAR Non-Admin Reason: Unavailable Admin: 08/28/18 08:17 Dose: Not Given Documented by: SCAR Non-Admin Reason: Unavailable Glucose (Insta-Glucose) 15 gm PO PRN PRN PRN Reason: Hypoglycemia Hydromorphone HCl (Dilaudid) 0.5 mg IV Q2HP PRN PRN Reason: PAIN LEVEL > 6 Last Admin: 08/30/18 17:38 Dose: 0.5 mg Documented by: Admin: 08/30/18 11:38 Dose: 0.5 mg Documented by: Admin: 08/30/18 08:48 Dose: 0.5 mg Documented by: Admin: 08/30/18 00:27 Dose: 0.5 mg Documented by: Admin: 08/29/18 21:06 Dose: 0.5 mg Documented by: Admin: 08/29/18 09:21 Dose: 0.5 mg Documented by: Admin: 08/29/18 04:22 Dose: 0.5 mg Documented by: Admin: 08/29/18 00:50 Dose: 0.5 mg Documented by: Admin: 08/28/18 21:10 Dose: 0.5 mg Documented by: Admin: 08/28/18 12:12 Dose: 0.5 mg Documented by: Admin: 08/28/18 07:51 Dose: 0.5 mg Documented by: Admin: 08/28/18 02:54 Dose: 0.5 mg Documented by: Admin: 08/28/18 00:47 Dose: 0.5 mg Documented by: Admin: 08/27/18 22:20 Dose: 0.5 mg Documented by: Admin: 08/27/18 19:19 Dose: 0.5 mg Documented by: Admin: 08/27/18 16:47 Dose: 0.5 mg Documented by: Admin: 08/27/18 09:45 Dose: 0.5 mg Documented by: Admin: 08/27/18 04:44 Dose: 0.5 mg Documented by: Admin: 08/26/18 22:50 Dose: 0.5 mg Documented by: TRISHA Piperacillin Sod/Tazobactam (Sod 3.375 gm/ Dextrose) 50 mls @ 100 mls/hr IV Q6H JEANCARLOS; Protocol Last Infusion: 08/30/18 18:20 Dose: 0 mls/hr Documented by: Admin: 08/30/18 17:38 Dose: 100 mls/hr Documented by: Infusion: 08/30/18 12:08 Dose: 100 mls/hr Documented by: AEFe Admin: 08/30/18 11:38 Dose: 100 mls/hr Documented by: AEFe Infusion: 08/30/18 06:10 Dose: 0 mls/hr Documented by: Admin: 08/30/18 05:10 Dose: 100 mls/hr Documented by: Infusion: 08/30/18 00:27 Dose: 100 mls/hr Documented by: Admin: 08/29/18 23:57 Dose: 100 mls/hr Documented by: Infusion: 08/29/18 17:26 Dose: 100 mls/hr Documented by: Admin: 08/29/18 16:56 Dose: 100 mls/hr Documented by: Infusion: 08/29/18 11:57 Dose: 100 mls/hr Documented by: Admin: 08/29/18 11:27 Dose: 100 mls/hr Documented by: Infusion: 08/29/18 09:01 Dose: 100 mls/hr Documented by: Admin: 08/29/18 05:53 Dose: 100 mls/hr Documented by: Infusion: 08/29/18 01:30 Dose: 0 mls/hr Documented by: Admin: 08/29/18 00:49 Dose: 100 mls/hr Documented by: Infusion: 08/28/18 17:45 Dose: 100 mls/hr Documented by: Admin: 08/28/18 17:15 Dose: 100 mls/hr Documented by: Infusion: 08/28/18 12:42 Dose: 100 mls/hr Documented by: Admin: 08/28/18 12:12 Dose: 100 mls/hr Documented by: Infusion: 08/28/18 06:09 Dose: 100 mls/hr Documented by: Admin: 08/28/18 05:39 Dose: 100 mls/hr Documented by: Infusion: 08/28/18 00:59 Dose: 0 mls/hr Documented by: Admin: 08/28/18 00:22 Dose: 100 mls/hr Documented by: Infusion: 08/27/18 17:27 Dose: 100 mls/hr Documented by: Admin: 08/27/18 16:57 Dose: 100 mls/hr Documented by: Infusion: 08/27/18 13:54 Dose: 100 mls/hr Documented by: Admin: 08/27/18 13:24 Dose: 100 mls/hr Documented by: Infusion: 08/27/18 11:09 Dose: 100 mls/hr Documented by: Admin: 08/27/18 10:39 Dose: 100 mls/hr Documented by: Infusion: 08/27/18 07:05 Dose: 0 mls/hr Documented by: Admin: 08/27/18 06:31 Dose: 100 mls/hr Documented by: Infusion: 08/26/18 23:20 Dose: 0 mls/hr Documented by: Admin: 08/26/18 22:49 Dose: 100 mls/hr Documented by: TRISHA Insulin Glargine (Lantus) 40 unit SQ BID [facility] Last Admin: 08/30/18 08:15 Dose: 40 units Documented by: AD Insulin Human Lispro (Humalog) 0 unit SQ ACHS [facility]; Protocol Last Admin: 08/30/18 17:38 Dose: Not Given Documented by: [email or web address] Non-Admin Reason: no coverage required Admin: 08/30/18 11:37 Dose: Not Given Documented by: [email or web address] Non-Admin Reason: no coverage required Admin: 08/30/18 07:53 Dose: Not Given Documented by: [email or web address] Non-Admin Reason: no coverage required Admin: 08/29/18 21:40 Dose: 2 units Documented by: Admin: 08/29/18 16:13 Dose: Not Given Documented by: ARIAN Non-Admin Reason: No Coverage Needed Admin: 08/29/18 11:29 Dose: Not Given Documented by: ARIAN Non-Admin Reason: [email or web address] Admin: 08/29/18 07:26 Dose: Not Given Documented by: ARIAN Non-Admin Reason: not needed Admin: 08/28/18 21:28 Dose: 2 units Documented by: Admin: 08/28/18 17:39 Dose: 4 units Documented by: Admin: 08/28/18 12:01 Dose: 2 units Documented by: Admin: 08/28/18 07:49 Dose: Not Given Documented by: SCAR Non-Admin Reason: No Coverage Needed Admin: 08/27/18 22:06 Dose: 4 units Documented by: Admin: 08/27/18 16:48 Dose: Not Given Documented by: SCAR Non-Admin Reason: No Coverage Needed Admin: 08/27/18 13:23 Dose: Not Given Documented by: SCAR Non-Admin Reason: No Coverage Needed Admin: 08/27/18 08:01 Dose: Not Given Documented by: SCAR Non-Admin Reason: Agitation Admin: 08/26/18 21:23 Dose: Not Given Documented by: TRISHA Non-Admin Reason: No Coverage Needed Iron Carb/Multivit/[place]/Folic Acid (Multivitamin W/Minerals) 1 tab PO DAILY [facility] Last Admin: 08/30/18 08:13 Dose: 1 tab Documented by: Admin: 08/29/18 08:51 Dose: 1 tab Documented by: Admin: 08/28/18 09:58 Dose: 1 tab Documented by: [id number] Isosorbide Mononitrate (Imdur) 60 mg PO QDAY [facility] Last Admin: 08/30/18 08:12 Dose: 60 mg Documented by: [email or web address] Admin: 08/29/18 08:51 Dose: 60 mg Documented by: Admin: 08/28/18 09:56 Dose: 60 mg Documented by: [id number] Admin: 08/27/18 10:40 Dose: 60 mg Documented by: [email or web address] Lactobacillus Rhamnosus (Culturelle) 1 cap PO BID [facility] Last Admin: 08/30/18 08:13 Dose: 1 cap Documented by: Admin: 08/29/18 21:40 Dose: 1 cap Documented by: Admin: 08/29/18 09:00 Dose: 1 cap Documented by: Admin: 08/28/18 21:10 Dose: 1 cap Documented by: Admin: 08/28/18 09:57 Dose: 1 cap Documented by: Admin: 08/27/18 21:50 Dose: 1 cap Documented by: Admin: 08/27/18 10:41 Dose: 1 cap Documented by: Admin: 08/26/18 22:50 Dose: 1 cap Documented by: TRISHA Lisinopril (Zestril) 5 mg PO QDAY [facility] Admin: 08/30/18 08:13 Dose: 5 mg Documented by: Admin: 08/29/18 08:52 Dose: 5 mg Documented by: Admin: 08/28/18 09:57 Dose: 5 mg Documented by: Admin: 08/27/18 10:41 Dose: 5 mg Documented by: SCAR Multivitamins/Minerals (Ocuvite) 1 tab PO DAILY [facility] Admin: 08/30/18 08:12 Dose: 1 tab Documented by: AD Comments: does not scan not on patient's mar Admin: 08/29/18 09:00 Dose: 1 tab Documented by: Admin: 08/28/18 09:58 Dose: 1 tab Documented by: SCAR Nitroglycerin (Nitrostat) 0.4 mg SL Q5M PRN PRN Reason: Chest Pain Ondansetron HCl (Zofran) 4 mg IV Q6HP PRN PRN Reason: Nausea And Vomiting Oxycodone/Acetaminophen (Percocet 5-325 Mg) 1 - 2 tab PO Q4HP PRN PRN Reason: PAIN LEVEL 3-6 Last Admin: 08/30/18 19:05 Dose: 2 tab Documented by: Admin: 08/30/18 14:50 Dose: 1 tab Documented by: Admin: 08/30/18 08:33 Dose: 1 tab Documented by: Admin: 08/30/18 04:39 Dose: 1 tab Documented by: Admin: 08/30/18 02:49 Dose: 1 tab Documented by: Admin: 08/29/18 22:51 Dose: 2 tab Documented by: Admin: 08/29/18 15:08 Dose: 2 tab Documented by: Admin: 08/29/18 11:26 Dose: 2 tab Documented by: Admin: 08/29/18 05:53 Dose: 2 tab Documented by: Admin: 08/29/18 01:43 Dose: 2 tab Documented by: Admin: 08/28/18 22:09 Dose: 2 tab Documented by: Admin: 08/28/18 17:38 Dose: 2 tab Documented by: Admin: 08/28/18 09:56 Dose: 2 tab Documented by: Admin: 08/28/18 04:24 Dose: 2 tab Documented by: Admin: 08/28/18 00:22 Dose: 1 tab Documented by: Admin: 08/27/18 21:49 Dose: 1 tab Documented by: Admin: 08/27/18 13:49 Dose: 2 tab Documented by: SCAR Potassium Chloride (Kdur) 20 meq PO QAMCC [facility] Last Admin: 08/30/18 08:14 Dose: 20 meq Documented by: Admin: 08/29/18 08:52 Dose: 20 meq Documented by: Admin: 08/28/18 07:50 Dose: 20 meq Documented by: Admin: 08/27/18 10:42 Dose: 20 meq Documented by: SCAR Pregabalin (Lyrica) 75 mg PO QID [facility] Last Admin: 08/30/18 17:37 Dose: 75 mg Documented by: AEFe Admin: 08/30/18 14:46 Dose: 75 mg Documented by: Admin: 08/30/18 08:33 Dose: 75 mg Documented by: Admin: 08/29/18 21:40 Dose: 75 mg Documented by: Admin: 08/29/18 16:56 Dose: 75 mg Documented by: Admin: 08/29/18 13:32 Dose: 75 mg Documented by: Admin: 08/29/18 08:50 Dose: 75 mg Documented by: Admin: 08/28/18 21:10 Dose: 75 mg Documented by: Admin: 08/28/18 17:38 Dose: 75 mg Documented by: Admin: 08/28/18 13:07 Dose: 75 mg Documented by: Admin: 08/28/18 09:58 Dose: 75 mg Documented by: Admin: 08/27/18 21:50 Dose: 75 mg Documented by: Admin: 08/27/18 16:56 Dose: 75 mg Documented by: Admin: 08/27/18 13:23 Dose: 75 mg Documented by: Admin: 08/27/18 10:41 Dose: 75 mg Documented by: SCAR Senna (Senokot) 2 tab PO DAILY PRN PRN Reason: Constipation Simvastatin (Zocor) 40 mg PO HS [facility] Last Admin: 08/29/18 21:40 Dose: 40 mg Documented by: Admin: 08/28/18 21:10 Dose: 40 mg Documented by: Admin: 08/27/18 21:49 Dose: 40 mg Documented by: TRISHA Sodium Chloride (Saline Flush) 10 ml IV Q8 [facility] Admin: 08/30/18 14:47 Dose: 10 ml Documented by: [email or web address] Admin: 08/30/18 05:09 Dose: 10 ml Documented by: Admin: 08/29/18 21:07 Dose: 10 ml Documented by: Admin: 08/29/18 13:32 Dose: 10 ml Documented by: Admin: 08/29/18 04:22 Dose: 10 ml Documented by: Admin: 08/29/18 00:51 Dose: 10 ml Documented by: Admin: 08/28/18 13:15 Dose: 10 ml Documented by: Admin: 08/28/18 05:39 Dose: 10 ml Documented by: Admin: 08/27/18 21:50 Dose: 10 ml Documented by: Admin: 08/27/18 13:30 Dose: 10 ml Documented by: Admin: 08/27/18 04:41 Dose: 10 ml Documented by: MARIA A Admin: 08/26/18 22:51 Dose: 10 ml Documented by: TRISHA Torsemide (Demadex) 30 mg PO BID@0800,1200 [facility] Last Admin: 08/30/18 11:37 Dose: 30 mg Documented by: AEFe Admin: 08/30/18 08:33 Dose: 30 mg Documented by: AEFe Admin: 08/29/18 11:26 Dose: 30 mg Documented by: Admin: 08/29/18 08:51 Dose: 30 mg Documented by: ARIAN Vitamin D (Vitamin D3) 400 unit PO DAILY [facility] Last Admin: 08/30/18 08:33 Dose: 400 unit Documented by: Admin: 08/29/18 08:50 Dose: 400 unit Documented by: Admin: 08/28/18 09:56 Dose: 400 unit Documented by: [id number] Vitamin E (Vitamin E) 400 unit PO DAILY [facility] Last Admin: 08/30/18 08:33 Dose: 400 unit Documented by: Admin: 08/29/18 08:50 Dose: 400 unit Documented by: Admin: 08/28/18 09:59 Dose: 400 unit Documented by: [email or web address] Assessment and Plan - Narrative A/P Narrative: A: 1. 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 No signs of sepsis Recommendations: - Continue IV Zosyn 3.375 gm q6 hrs for now - Surgical debridement planned will help with decreasing bioburden but risk of recontamination is very high given the close proximity of the buttock wound to anal verge. As noted in physical exam, the righ buttock cheek touches the outer edges of pt's left buttock ulcer when patient lies on one side. - At discharge, Pt could be switched to PO Levofloxacin 750 mg q24 and PO Metronidazole 500 mg q8 hrs for a 2-week course (stop date 09/13/18) - For patient buttock wound to heal completely, consider temporary diverting colostomy. The wound is at higher risk for progressing to chronc osteomyelitis. In addition, it is so deep that all of it might not heal and will need a anil- fascial flap; which would need a uncontaminated field. Considering the pt is mobile and can wipe and move around, the close proximity of anal verge to the wound and recovery of fecal keiko from the wound currently suggests ongoing fecal contamination. Continued antibiotic use with daily fecal contamination (a small amount of feces has billions of bacteria) will lead to selection pressure on antibiotics and development of antibiotic resistance further complicating patient's recovery options. Considering the size of wound, need for plastic surgery for a myofascial flap at a later stage; he would benefit from a referral to a tertiary care center. will sign off. Please call back with questions. Norbert Coreas MD Infectious diseases
[2018-08-30] MEDS: SIMVASTATIN 40 MG TABLET PO SCH (22:04)
[2018-08-30] MEDS: CARVEDILOL 6.25 MG TABLET PO SCH (22:04)
[2018-08-31] MEDS: oxyCODONE/APAP 5/325MG TABLET PO PRN (00:35)
[2018-08-31] MEDS ORDERED: LACTATED RINGERS 1,000 ML IV ONE (01:16)
[2018-08-31 05:42] LABS: Basophils # (Auto) 0 K/mcL (0.0-0.3); Basophils % (Auto) 0.5 % (0.0-2.0); Eosinophils # (Auto) 0.5 K/mcL (0.0-0.7); Granulocytes % (Auto) 52.8 % (38.0-78.0); Hematocrit 25.1 % (41.0-55.0); Hemoglobin 8.2 g/dL (13.5-16.5); Lymphocytes # (Auto) 2.3 K/mcL (1.5-4.8); Lymphocytes % (Auto) 27.1 % (15.5-49.0); Mean Cell Volume 81.4 fL (80.0-100.0); Mean Corpuscular HGB Conc 32.6 g/dL (31.0-36.0); Mean Platelet Volume 10.6 fL (7.4-10.4); Monocytes # (Auto) 1.1 K/mcL (0.1-0.9); Monocytes % (Auto) 13.6 % (1.0-12.0); Platelet Count 249 K/mcL (140-440); RBC 3.09 M/mcL (4.50-5.90); Red Cell Distribution Width 16.3 % (11.5-14.5); WBC 8.4 K/mcL (4.5-11.0)
[2018-08-31] MEDS: PIPERACILLIN SODIUM/TAZOBACTAM 3.375 GM in DEXTROSE 5% IN WATER 50 ML IV SCH ×4 (05:53→17:50)
[2018-08-31] MEDS: 0.9 % SODIUM CHLORIDE 10 ML SYRINGE IV SCH ×2 (05:53→13:45)
[2018-08-31 06:07] LABS: ALT/SGPT 13 U/l (0-40); AST/SGOT 15 U/l (0-37); Albumin 2.8 gm/dL (3.2-5.2); Albumin/Globulin Ratio 0.8 (1.0-2.3); Alkaline Phosphatase 75 U/L (39-117); Bilirubin,Direct < 0.2 mg/dL (0.0-0.3); Bilirubin,Total 0.3 mg/dL (0.0-1.0); Blood Urea Nitrogen 35 mg/dl (8-23); Calcium 8.9 mg/dl (8.6-10.4); Carbon Dioxide 29 mmol/L (22-30); Chloride 96 mmol/L (96-108); Globulin 3.3 gm/dL (2.2-3.7); Glomerular Filtration Rate 36; Glucose 49 mg/dL (70-105); Lactate Dehydrogenase 222 U/L (94-250); Magnesium 2.1 mg/dL (1.6-2.5); Phosphorous 5.6 mg/dL (2.7-4.5); Potassium 3.6 mmol/L (3.3-5.1); Sodium 138 mmol/L (133-145); Triglycerides 177 mg/dl (<150); Uric Acid 4.8 mg/dL (2.5-8.0)
[2018-08-31] MEDS: DEXTROSE 50% 50 ML VIAL IV PRN ×2 (07:01→12:10)
[2018-08-31] MEDS: INSULIN LISPRO 1 UNIT/0.01 ML UNIT SQ SCH ×4 (07:05→22:03)
[2018-08-31] MEDS: LACTATED RINGERS 1,000 ML IV SCH ×3 (07:05→17:05)
[2018-08-31] MEDS ORDERED: SCOPOLAMINE 1 PATCH PATCH TOPICAL PRN (07:44)
[2018-08-31] MEDS ORDERED: IPRATROPIUM/ALBUTEROL 3 ML AMPUL.NEB NEB PRN ×3 (07:44→12:11)
[2018-08-31] MEDS: POTASSIUM CHLORIDE 20 MEQ TABLET PO SCH (08:36)
[2018-08-31] MEDS ORDERED: GLYCOPYRROLATE 0.2 MG/ML VIAL IV ONE (09:20)
[2018-08-31] MEDS ORDERED: HYDROmorphone 2 MG/ML VIAL IV ONE (09:20)
[2018-08-31] MEDS ORDERED: PHENYLEPHRINE 10 MG/ML VIAL IV ONE (09:20)
[2018-08-31] MEDS ORDERED: ONDANSETRON 4 MG/2 ML VIAL IV ONE (09:20)
[2018-08-31] MEDS ORDERED: DEXAMETHASONE 10 MG/ML VIAL IV ONE (09:20)
[2018-08-31] MEDS ORDERED: PROPOFOL 200 MG/20 ML VIAL IV ONE (09:20)
[2018-08-31] MEDS ORDERED: LIDOCAINE HCL/PF 100 MG/5 ML SYRINGE IV ONE (09:20)
[2018-08-31] MEDS ORDERED: KETAMINE 100 MG/ML ML IV ONE (09:20)
[2018-08-31] MEDS ORDERED: fentaNYL 100 MCG/2 ML VIAL IV ONE (09:20)
[2018-08-31] MEDS ORDERED: MIDAZOLAM 2 MG/2 ML VIAL IV ONE (09:20)
[2018-08-31] MEDS: MULTIVIT,THER IRON,CA,FA & MIN 1 TABLET PO SCH (10:03)
[2018-08-31] MEDS: LACTOBACILLUS 1 CAPSULE PO SCH ×2 (10:03→21:37)
[2018-08-31] MEDS: VITAMIN E (DL,TOCOPHERYL ACET) 400 UNIT CAPSULE PO SCH (10:03)
[2018-08-31] MEDS: VITAMIN D3 400 UNIT TABLET PO SCH (10:03)
[2018-08-31] MEDS: ASPIRIN 81 MG TAB.CHEW CHEWED SCH (10:03)
[2018-08-31] MEDS: VIT A,C & E/LUTEIN/MINERALS TABLET PO SCH (10:03)
[2018-08-31] MEDS: PREGABALIN 75 MG CAPSULE PO SCH ×4 (10:03→21:37)
[2018-08-31] MEDS: CALCITRIOL 0.25 MCG CAPSULE PO SCH ×2 (10:03→21:37)
[2018-08-31] MEDS: ALLOPURINOL 100 MG TABLET PO SCH (10:03)
[2018-08-31] MEDS: ESCITALOPRAM 10 MG TABLET PO SCH (10:03)
[2018-08-31] MEDS ORDERED: ONDANSETRON 4 MG/2 ML VIAL IV PRN ×2 (10:05→12:11)
[2018-08-31] MEDS ORDERED: NALOXONE HCL 0.4 MG/ML VIAL IV PRN (10:05)
[2018-08-31] MEDS ORDERED: FLUMAZENIL 0.1 MG/ML ML IV PRN (10:05)
[2018-08-31] MEDS ORDERED: LACTATED RINGERS 250 ML IV PRN (10:05)
[2018-08-31] MEDS ORDERED: METHOCARBAMOL 1,000 MG/10 ML VIAL IV PRN (10:05)
[2018-08-31] MEDS ORDERED: fentaNYL 100 MCG/2 ML VIAL IV PRN (10:05)
[2018-08-31] MEDS ORDERED: HYDROmorphone 2 MG/ML VIAL IV PRN (10:05)
[2018-08-31] MEDS ORDERED: ACETAMINOPHEN 1,000 MG/100 ML BOTTLE IV ONE (10:05)
[2018-08-31] MEDS ORDERED: BENZOCAINE/MENTHOL 1 LOZENGE PO PRN (10:05)
[2018-08-31] MEDS ORDERED: LACTATED RINGERS 1,000 ML IV SCH (10:15)
--- NOTE | 2018-08-31 11:09 | Brief Operative Note ---
Date of procedure: 08/31/18 Pre-op diagnosis: stage 4 decubitus ulcer left buttock Post-op diagnosis: other (stage 4 decubitus ulcer [id number]) Procedure: debridement of stage 4 decubitus ulcer with excision of fat muscle and fascia Grafts/Implants: No (wound vac placement) Anesthesia: GETA Findings: very large presacral and para-rectal decubitus ulcer with major necrosis of fat,muscle and presacral fascia Complications: none Surgeon: Titi Vega Estimated blood loss (cc): 25 Specimens Removed/Pathology: none sent Condition: stable Disposition: PACU
--- NOTE | 2018-08-31 12:04 | Internal Med Progress Note ---
Medical - PN: Subj Patient information: Note initiated : 08/31/18 at 12:02 pm Service Date, if different from initiated Date: [] Patient: Quintin Avalos a 63 y/o M admitted on 08/26/18 for Wound. Chief Complaint: [] Interval history: Mr. Avalos is a 63 year old M Transferred to [facility] for further wound care of a infected decubitus ulcer. Patient originally presented to [facility] the middle of June for infected decubitus wound with sepsis and DKA and was transferred up to [place] and was at there for 19 days and then discharged home. He was seen in [place] by surgeon who did debridement on the . A week later to the wound was shown to primary care provider Dr. Doherty to request the patient come to the ED. Patient was admitted and treated with IV antibiotics and was taken for OR debr idement on the . The wound is debrided down to the bone and there has been eschar noted. An ESR was done today which is 108 CRP was 6. There is concern for developing osteomyelitis. [facility] does not have MRI for the next 4 days and their surgeon is gone for the next 4 days as well. This is requested to transfer for further wound care and imaging as we have MRI available. Case is also discussed with Dr. Mariscal and Dr. Garcia. Dr. kaplan will follow. MRI for tomorrow. Patient has no complaints at this time other than the sore bottom. 08/27 No overnight events. Seen by Dr. kaplan this morning. IV antibiotics continuing. MRI this morning. No new complaints. 08/28 Pain controlled, no overnight events. No new complaints. Did have some diarrhea yesterday. Stool softener stopped. 08/29 Patient seen and examined, no acute overnight events. Glucose level a bit low on basic metabolic profile, cut back on the dose of Lantus. Patient has some pain at the wound site, Wound care surgeon is awaiting consult from general surgery to formulate a plan. Infectious disease provider also is following. There is consideration for diversion of feces for wound healing, patient may benefit from a diverting ileostomy or colostomy according to the ID physician precious carias the wound care physician. The wound care physician is also requesting I believe a urinary diversion, and he is discussing this with the urologist. Patient does not have any fever or chills, and is hemodynamically stable at this point. IV antibiotics as per infectious disease Wound care as per Dr. Reyes 08/30 Pt seen examined, no acute issue reported afebrile, labs stable, on Zosyn for polymicrobial infection which seems to be responding well, I have reviewed the consults from ID, Surgery, Wound care and Urology. At this time the consultants Surgery and Urology believe that a diverting colostomy and a urinary diversion is not indicated. Patient is ambulatory and is able to provide self care for the most part. Patient case was reviewed with LTAC team and it was noted that they would wish for a debridement and wound vac placement and clarification of the need for fecal and urinary diversions (which according to surgey and urology is not indicated at this time). I have asked Dr Vega to consider OR debridement and application of wound vac to the patient, if it would help facilitate wound healing and then transfer to LTAC center. 08/31 Pt seen examined, overnight low bp, low glucose noted, pt seen post op, no acute complaints, a bit groggy, responded to IV fluids, this AM labs show slight worsening of renal function, likely from use of diuretics, low bp s/p OR debridement and wound vac placement by surgery. IV zosyn to continue. Appreciate help from Dr Vega with regards to helping patient get a wound vac, will review case again with LTACH vs SNF Pertinent ROS: Denies headache, dizziness Denies chest pain, palpitations Denies cough or shortness of breath Denies abdominal pain, nausea or vomiting. - Constitutional Vitals: Vital Signs Temp Pulse Resp BP Pulse Ox 97.5 F 81 13 115/67 96 08/31/18 11:44 08/31/18 11:44 08/31/18 11:44 08/31/18 11:44 08/31/18 11:44 Period Temp Pulse Resp BP Sys/Hamlin Pulse Ox Last 24 Hr 97.2 F-98.6 F 69-94 11-24 85-125/50-70 91-100 Intake and Output 08/30/18 08/31/18 08/31/18 21:59 05:59 13:59 Intake Total 1910 50 750 Output Total 450 880 Balance 1460 50 -130 Weight 316 lb Patient Weight 09/01/18 05:59 Weight 316 lb Intake & Output: Intake & Output 08/30/18 08/31/18 08/31/18 21:59 05:59 13:59 Intake Total 1910 50 750 Output Total 450 880 Balance 1460 50 -130 Weight 316 lb Intake: IV 50 50 750 Lactated Ringers 250 ml @ Wide 600 Open IV PRN PRN Rx#:[id number] Zosyn 3.375 gm In Dextrose 5% 50 50 50 in Water 50 ml @ 100 mls/hr IV Q6H JEANCARLOS Rx#:[id number] Oral 1860 0 Output: Void Amount 450 850 Estimated Blood Loss 30 Other: Meal Dinner HS Snack Percent of Meal Consumed 100% 100% Feeding Ability Independent Independent # Voids 3 1 # Bowel Movements 2 Exam: Constitutional; Afebrile, cooperative, drowsy, not in distress. Respiratory system: Air Entry equal on both sides, No crackles or wheezing, no rhonchi. CVS- Rate rhythm regular, S1,S2 heard, no gallop, no rub. Abdomen- Soft nontender abdomen, no organomegaly, no tenderness, no guarding or rigidity, RADIUS GRINDER- AOOx3, moving all extremities, no gross focal deficit noted. Medical - PN: Obj Da - Labs CBC & Chem 7: 08/31/18 04:21 08/31/18 04:21 Labs: Abnormal Lab Results 08/31/18 08/31/18 08/30/18 04:21 04:21 03:57 RBC 3.09 L Hgb 8.2 L Hct 25.1 L RDW 16.3 H MPV 10.6 H Mcduffie % (Auto) 13.6 H Mcduff[place] # (Auto) 1.1 H Anion Gap BUN 35 H Creatinine 1.9 H Glucose 49 L 65 L Calcium 8.5 L Phosphorus 5.6 H Magnesium GGT 98 H 112 H Lactate Dehydrogenase Albumin 2.8 L 2.6 L Albumin/Globulin Ratio 0.8 L 0.8 L Triglycerides 177 H 154 H 08/30/18 08/29/18 08/29/18 03:57 04:53 04:53 RBC 3.14 L 3.23 L Hgb 8.3 L 8.6 L Hct 25.6 L 26.4 L RDW 15.9 H 16.2 H MPV 10.5 H Mcduff[place] % (Auto) Mcduffie # (Auto) Anion Gap 17.0 H BUN Creatinine Glucose 55 L Calcium 8.5 L Phosphorus Magnesium 1.5 L GGT 129 H Lactate Dehydrogenase 283 H Albumin 2.5 L Albumin/Globulin Ratio 0.7 L Triglycerides Meds: Medications Acetaminophen (Tylenol) 650 mg PO Q6HP PRN PRN Reason: PAIN/FEVER > 101 Albuterol/Ipratropium (Duoneb) 3 ml NEB Q4HRT PRN PRN Reason: Bronchospasm Albuterol/Ipratropium (Duoneb) 3 ml NEB ONCE PRN PRN Reason: Wheezing Stop: 08/31/18 12:05 Allopurinol (Zyloprim) 100 mg PO QDAY REPLACED BY [facility] Last Admin: 08/31/18 10:03 Dose: Not Given Documented by: Aspirin (Aspirin) 81 mg CHEWED DAILY REPLACED BY [facility] Last Admin: 08/31/18 10:03 Dose: Not Given Documented by: Calcitriol (Rocaltrol) 0.25 mcg PO BID REPLACED BY [facility] Last Admin: 08/31/18 10:03 Dose: Not Given Documented by: Dextrose (Dextrose 50%) 0 ml IV UD PRN PRN Reason: Hypoglycemia Last Admin: 08/31/18 07:01 Dose: 25 ml Documented by: Diagnostic Test (Pha) (Accu-Chek) 1 each FS ACHS REPLACED BY [facility] Last Admin: 08/31/18 08:33 Dose: 1 each Documented by: Escitalopram Oxalate (Lexapro) 10 mg PO QDAY REPLACED BY [facility] Last Admin: 08/31/18 10:03 Dose: Not Given Documented by: Fentanyl (Sublimaze) 25 mcg IV Q2M PRN PRN Reason: Pain Stop: 08/31/18 12:06 Flumazenil (Romazicon) 0.1 mg IV Q2MIN PRN PRN Reason: BENZODIAZEPINE REVERSAL Stop: 08/31/18 12:06 Glucose (Insta-Glucose) 15 gm PO PRN PRN PRN Reason: Hypoglycemia Hydromorphone HCl (Dilaudid) 0.5 mg IV Q2HP PRN PRN Reason: PAIN LEVEL > 6 Last Admin: 08/30/18 22:18 Dose: 0.5 mg Documented by: Hydromorphone HCl (Dilaudid) 0.5 mg IV Q15MIN PRN PRN Reason: PAIN LEVEL > 6 Stop: 08/31/18 12:06 Piperacillin Sod/Tazobactam (Sod 3.375 gm/ Dextrose) 50 mls @ 100 mls/hr IV Q6H REPLACED BY [facility]; Protocol Last Infusion: 08/31/18 06:30 Dose: Infused Documented by: Lactated Ringer's (Lactated Ringers) 1,000 mls @ 150 mls/hr IV .Q6H40M REPLACED BY [facility] Stop: 08/31/18 21:29 Last Admin: 08/31/18 10:02 Dose: Not Given Documented by: Lactated Ringer's (Lactated Ringers) 1,000 mls @ 20 mls/hr IV .Q24H REPLACED BY [facility] Stop: 08/31/18 12:06 Lactated Ringer's (Lactated Ringers) 1,000 mls @ 0 mls/hr IV PRN PRN PRN Reason: Hypovolemia Stop: 08/31/18 12:06 Insulin Human Lispro (Humalog) 0 unit SQ ACHS REPLACED BY [facility]; Protocol Last Admin: 08/31/18 07:05 Dose: Not Given Documented by: Iron Carb/Multivit/General Repair Mechanic/Folic Acid (Multivitamin W/Minerals) 1 tab PO DAILY REPLACED BY [facility] Last Admin: 08/31/18 10:03 Dose: Not Given Documented by: Lactobacillus Rhamnosus (Culturelle) 1 cap PO BID REPLACED BY [facility] Last Admin: 08/31/18 10:03 Dose: Not Given Documented by: Methocarbamol (Robaxin) 750 mg IV ONCE PRN PRN Reason: Muscle Spasm Stop: 08/31/18 12:06 Multivitamins/Minerals (Ocuvite) 1 tab PO DAILY REPLACED BY [facility] Last Admin: 08/31/18 10:03 Dose: Not Given Documented by: Naloxone HCl (Narcan) 0.1 mg IV Q2MIN PRN PRN Reason: Opiate Reversal Stop: 08/31/18 12:06 Nitroglycerin (Nitrostat) 0.4 mg SL Q5M PRN PRN Reason: Chest Pain Ondansetron HCl (Zofran) 4 mg IV Q6HP PRN PRN Reason: Nausea And Vomiting Ondansetron HCl (Zofran) 4 mg IV ONCE PRN PRN Reason: Nausea And Vomiting Stop: 08/31/18 12:06 Oxycodone/Acetaminophen (Percocet 5-325 Mg) 1 - 2 tab PO Q4HP PRN PRN Reason: PAIN LEVEL 3-6 Last Admin: 08/31/18 00:35 Dose: 2 tab Documented by: Potassium Chloride (Kdur) 20 meq PO QAMCC REPLACED BY [facility] Last Admin: 08/31/18 08:36 Dose: Not Given Documented by: Pregabalin (Lyrica) 75 mg PO QID REPLACED BY [facility] Last Admin: 08/31/18 10:03 Dose: Not Given Documented by: Senna (Senokot) 2 tab PO DAILY PRN PRN Reason: Constipation Simvastatin (Zocor) 40 mg PO HS REPLACED BY [facility] Last Admin: 08/30/18 22:04 Dose: 40 mg Documented by: Sodium Chloride (Saline Flush) 10 ml IV Q8 REPLACED BY [facility] Last Admin: 08/31/18 05:53 Dose: 10 ml Documented by: Throat Lozenges (Cepacol) 1 lozenge PO PRN PRN PRN Reason: Sore Throat Stop: 08/31/18 12:06 Vitamin D (Vitamin D3) 400 unit PO DAILY REPLACED BY [facility] Last Admin: 08/31/18 10:03 Dose: Not Given Documented by: Vitamin E (Vitamin E) 400 unit PO DAILY REPLACED BY [facility] Last Admin: 08/31/18 10:03 Dose: Not Given Documented by: Medical - PN: A/P - Time Spent With Patient Total time spent is greater than 50% in coordination of care (as documented) at patient's floor/unit and/or counseling patient: - Narrative A/P Narrative: A/P Infected left buttock Ulcer -No e/o Osteomyelitis on MRI -on IV zosyn for polymicrobial infection -Urology and Surgery did not recommend diverting urine, or colostomy at this time. -s/p wound vac application by surgery. -Anticipate cd/c to LTAC Acute Kidney injury -due to volume depletion, low bp -IV fluids -hold diuretics, nephrotoxic agents Hypotension -from low volume status, -responded to fluids Hypoglycemia -again low values noted, d/c glipizdie and lantus, -monitor. DM -labile, glucose level 65 this AM -Lantus dose cut down again, and ssi for now -hold metformin CKD stage 3 -stable renal function -on feliciano (held now given worsening renal function) CAD, s/p CABG -continue home meds, no chest pain reported, on imdur, statin, asa, coreg (BP meds held) HTN -held meds for low bp Diastolic heart failure, grade 1 -medical management, stable, not in exacerbation -on diuretic continue same (held for low bp) Anemia of chronic disease -monitor Obesity, morbid, bmi 42 -outpatient management Depression -on lexapro, stable DVT hep sq Diet carb consistent/ cardiac FUll code Medical - PN: Qual - VTE Deep Vein Thrombosis/Pulmonary Embolism Present on Admission: No
[2018-08-31] MEDS ORDERED: DEXTROSE 50% 50 ML VIAL IV PRN (12:11)
[2018-08-31] MEDS ORDERED: NITROGLYCERIN 0.4 MG TAB.SUBL SL PRN (12:11)
[2018-08-31] MEDS ORDERED: SENNOSIDES 1 TABLET PO PRN (12:11)
[2018-08-31] MEDS ORDERED: DEXTROSE 31 GM ORAL.SUSP PO PRN (12:11)
[2018-08-31] MEDS: oxyCODONE HCL 5 MG TABLET PO PRN ×2 (12:48→22:05)
[2018-08-31] MEDS: HYDROmorphone 2 MG/ML VIAL IV PRN (16:31)
[2018-08-31] MEDS: SIMVASTATIN 40 MG TABLET PO SCH (21:37)
[2018-09-01] MEDS: LACTATED RINGERS 1,000 ML IV SCH (00:21)
[2018-09-01] MEDS: 0.9 % SODIUM CHLORIDE 10 ML SYRINGE IV SCH ×6 (00:51→21:22)
[2018-09-01] MEDS: PIPERACILLIN SODIUM/TAZOBACTAM 3.375 GM in DEXTROSE 5% IN WATER 50 ML IV SCH ×4 (01:03→17:08)
[2018-09-01] MEDS: oxyCODONE HCL 5 MG TABLET PO PRN ×5 (04:24→21:18)
[2018-09-01 05:28] LABS: Basophils # (Auto) 0 K/mcL (0.0-0.3); Basophils % (Auto) 0.1 % (0.0-2.0); Eosinophils # (Auto) 0 K/mcL (0.0-0.7); Eosinophils % (Auto) 0 % (0.0-7.0); Hematocrit 25.7 % (41.0-55.0); Hemoglobin 8.2 g/dL (13.5-16.5); Lymphocytes # (Auto) 0.9 K/mcL (1.5-4.8); Lymphocytes % (Auto) 12.7 % (15.5-49.0); Mean Cell Volume 82.1 fL (80.0-100.0); Mean Corpuscular HGB Conc 32.1 g/dL (31.0-36.0); Mean Platelet Volume 11.4 fL (7.4-10.4); Monocytes # (Auto) 0.4 K/mcL (0.1-0.9); Monocytes % (Auto) 6.2 % (1.0-12.0); Platelet Count 224 K/mcL (140-440); RBC 3.13 M/mcL (4.50-5.90); WBC 6.9 K/mcL (4.5-11.0)
[2018-09-01 05:51] LABS: ALT/SGPT 13 U/l (0-40); AST/SGOT 14 U/l (0-37); Albumin 2.8 gm/dL (3.2-5.2); Albumin/Globulin Ratio 0.8 (1.0-2.3); Alkaline Phosphatase 75 U/L (39-117); Bilirubin,Direct < 0.2 mg/dL (0.0-0.3); Bilirubin,Total 0.2 mg/dL (0.0-1.0); Blood Urea Nitrogen 29 mg/dl (8-23); Calcium 8.9 mg/dl (8.6-10.4); Carbon Dioxide 29 mmol/L (22-30); Chloride 102 mmol/L (96-108); Globulin 3.5 gm/dL (2.2-3.7); Glomerular Filtration Rate 71; Glucose 155 mg/dL (70-105); Lactate Dehydrogenase 223 U/L (94-250); Magnesium 2.5 mg/dL (1.6-2.5); Phosphorous 3.8 mg/dL (2.7-4.5); Sodium 140 mmol/L (133-145); Triglycerides 128 mg/dl (<150)
[2018-09-01] MEDS: INSULIN LISPRO 1 UNIT/0.01 ML UNIT SQ SCH ×4 (07:43→21:17)
[2018-09-01] MEDS: ACETAMINOPHEN 325 MG TABLET PO PRN ×2 (07:49→19:16)
[2018-09-01] MEDS: VITAMIN D3 400 UNIT TABLET PO SCH (09:15)
[2018-09-01] MEDS: CALCITRIOL 0.25 MCG CAPSULE PO SCH ×2 (09:15→21:18)
[2018-09-01] MEDS: POTASSIUM CHLORIDE 20 MEQ TABLET PO SCH (09:15)
[2018-09-01] MEDS: MULTIVIT,THER IRON,CA,FA & MIN 1 TABLET PO SCH (09:15)
[2018-09-01] MEDS: ALLOPURINOL 100 MG TABLET PO SCH (09:15)
[2018-09-01] MEDS: ESCITALOPRAM 10 MG TABLET PO SCH (09:15)
[2018-09-01] MEDS: LACTOBACILLUS 1 CAPSULE PO SCH ×2 (09:15→21:18)
[2018-09-01] MEDS: ASPIRIN 81 MG TAB.CHEW CHEWED SCH (09:15)
[2018-09-01] MEDS: VIT A,C & E/LUTEIN/MINERALS TABLET PO SCH (09:16)
[2018-09-01] MEDS: VITAMIN E (DL,TOCOPHERYL ACET) 400 UNIT CAPSULE PO SCH (09:16)
[2018-09-01] MEDS: PREGABALIN 75 MG CAPSULE PO SCH ×4 (09:16→21:18)
[2018-09-01] MEDS: INSULIN GLARGINE, HUMAN 1 UNIT/0.01 ML SQ SCH (09:24)
--- NOTE | 2018-09-01 12:14 | Internal Med Progress Note ---
Medical - PN: Subj Patient information: Note initiated : 09/01/18 at 12:11 pm Service Date, if different from initiated Date: [] Patient: Quintin Avalos a 63 y/o M admitted on 08/26/18 for Wound. Chief Complaint: [] Interval history: Mr. Avaols is a 63 year old M Transferred to [facility] for further wound care of a infected decubitus ulcer. Patient originally presented to [facility] the middle of June for infected decubitus wound with sepsis and DKA and was transferred up to [place] and was at there for 19 days and then discharged home. He was seen in [place] by surgeon who did debridement on the . A week later to the wound was shown to primary care provider Dr. Doherty to request the patient come to the ED. Patient was admitted and treated with IV antibiotics and was taken for OR debr idement on the . The wound is debrided down to the bone and there has been eschar noted. An ESR was done today which is 108 CRP was 6. There is concern for developing osteomyelitis. [facility] does not have MRI for the next 4 days and their surgeon is gone for the next 4 days as well. This is requested to transfer for further wound care and imaging as we have MRI available. Case is also discussed with Dr. Mariscal and Dr. Garcia. Dr. kaplan will follow. MRI for tomorrow. Patient has no complaints at this time other than the sore bottom. 08/27 No overnight events. Seen by Dr. kaplan this morning. IV antibiotics continuing. MRI this morning. No new complaints. 08/28 Pain controlled, no overnight events. No new complaints. Did have some diarrhea yesterday. Stool softener stopped. 08/29 Patient seen and examined, no acute overnight events. Glucose level a bit low on basic metabolic profile, cut back on the dose of Lantus. Patient has some pain at the wound site, Wound care surgeon is awaiting consult from general surgery to formulate a plan. Infectious disease provider also is following. There is consideration for diversion of feces for wound healing, patient may benefit from a diverting ileostomy or colostomy according to the ID physician precious carias the wound care physician. The wound care physician is also requesting I believe a urinary diversion, and he is discussing this with the urologist. Patient does not have any fever or chills, and is hemodynamically stable at this point. IV antibiotics as per infectious disease Wound care as per Dr. Reyes 08/30 Pt seen examined, no acute issue reported afebrile, labs stable, on Zosyn for polymicrobial infection which seems to be responding well, I have reviewed the consults from ID, Surgery, Wound care and Urology. At this time the consultants Surgery and Urology believe that a diverting colostomy and a urinary diversion is not indicated. Patient is ambulatory and is able to provide self care for the most part. Patient case was reviewed with LTAC team and it was noted that they would wish for a debridement and wound vac placement and clarification of the need for fecal and urinary diversions (which according to surgey and urology is not indicated at this time). I have asked Dr Vega to consider OR debridement and application of wound vac to the patient, if it would help facilitate wound healing and then transfer to LTAC center. 08/31 Pt seen examined, overnight low bp, low glucose noted, pt seen post op, no acute complaints, a bit groggy, responded to IV fluids, this AM labs show slight worsening of renal function, likely from use of diuretics, low bp s/p OR debridement and wound vac placement by surgery. IV zosyn to continue. Appreciate help from Dr Vega with regards to helping patient get a wound vac, [facility]01 Patient seen and examined, no acute overnight events. Glucose level now elevated resume dose of Lantus, but 20 units once a day and watch glucose closely. Keep holding blood pressure meds for now anticipated gradual resumption Patient is asymptomatic labs are stable renal function back to baseline Anticipate d/c tomorrow if bed available. Pertinent ROS: Denies headache, dizziness Denies chest pain, palpitations Denies cough or shortness of breath Denies abdominal pain, nausea or vomiting. - Constitutional Vitals: Vital Signs Temp Pulse Resp BP Pulse Ox 97.4 F 79 20 120/64 95 09/01/18 08:10 09/01/18 08:10 09/01/18 08:10 09/01/18 08:10 09/01/18 08:10 Period Temp Pulse Resp BP Sys/Hamlin Pulse Ox Last 24 Hr 97.4 F-98.3 F 68-88 14-20 90-126/59-72 87-99 Intake and Output 08/31/18 09/01/18 09/01/18 21:59 05:59 13:59 Intake Total 530 1540 2720 Output Total 825 1100 1025 Balance -821 572 5267 Weight 304 lb Intake & Output: Intake & Output 08/31/18 09/01/18 09/01/18 21:59 05:59 13:59 Intake Total 530 1540 2720 Output Total 825 1100 1025 Balance -094 914 4136 Weight 304 lb Intake: Nourishment/Supplement quantity 240 (ml) IV 50 1100 1000 Lactated Ringers 1,000 ml @ 150 1000 mls/hr IV .Q6H40M JEANCARLOS Rx#: [id number] Zosyn 3.375 gm In Dextrose 5% 50 100 in Water 50 ml @ 100 mls/hr IV Q6H JEANCARLOS Rx#:[id number] Oral 349 440 5286 Output: Drainage 75 Buttock Woundvac 75 Urine Catheter Amount 750 Straight 750 Void Amount 1100 1025 Other: Meal Dinner Breakfast Percent of Meal Consumed 100% 100% Feeding Ability Independent Urine Appearance Clear Clear Straight Clear Urine Color Pale Bright Yellow Straight Straw Urine Odor Normal Normal Stool Size Moderate Stool Consistency Loose # Bowel Movements 1 Exam: Constitutional; Afebrile, cooperative, alert, not in distress. Respiratory system: Air Entry equal on both sides, No crackles or wheezing, no rhonchi. CVS- Rate rhythm regular, S1,S2 heard, no gallop, no rub. Abdomen- Soft nontender abdomen, no organomegaly, no tenderness, no guarding or rigidity, BODY COMPONENT ENGINEER- AOOx3, moving all extremities, no gross focal deficit noted. Medical - PN: Obj Da - Labs CBC & Chem 7: 09/01/18 04:22 09/01/18 04:22 Labs: Abnormal Lab Results 09/01/18 09/01/18 08/31/18 04:22 04:22 04:21 RBC 3.13 L Hgb 8.2 L Hct 25.7 L RDW 16.0 H MPV 11.4 H Gran % 81.0 H Lymph % (Auto) 12.7 L Towns % (Auto) Lymph # (Auto) 0.9 L [place] # (Auto) BUN 29 H 35 H Creatinine 1.9 H Glucose 155 H 49 L Calcium Phosphorus 5.6 H GGT 95 H 98 H Albumin 2.8 L 2.8 L Albumin/Globulin Ratio 0.8 L 0.8 L Triglycerides 177 H 08/31/18 08/30/18 08/30/18 04:21 03:57 03:57 RBC 3.09 L 3.14 L Hgb 8.2 L 8.3 L Hct 25.1 L 25.6 L RDW 16.3 H 15.9 H MPV 10.6 H Gran % Lymph % (Auto) Towns % (Auto) 13.6 H Lymph # (Auto) [place]s # (Auto) 1.1 H BUN Creatinine Glucose 65 L Calcium 8.5 L Phosphorus GGT 112 H Albumin 2.6 L Albumin/Globulin Ratio 0.8 L Triglycerides 154 H Meds: Medications Acetaminophen (Tylenol) 650 mg PO Q6HP PRN PRN Reason: PAIN/FEVER > 101 Last Admin: 09/01/18 07:49 Dose: 650 mg Documented by: Albuterol/Ipratropium (Duoneb) 3 ml NEB Q4HRT PRN PRN Reason: Bronchospasm Allopurinol (Zyloprim) 100 mg PO QDAY [facility] Last Admin: 09/01/18 09:15 Dose: 100 mg Documented by: Aspirin (Aspirin) 81 mg CHEWED DAILY [facility] Last Admin: 09/01/18 09:15 Dose: 81 mg Documented by: Calcitriol (Rocaltrol) 0.25 mcg PO BID [facility] Last Admin: 09/01/18 09:15 Dose: 0.25 mcg Documented by: Dextrose (Dextrose 50%) 0 ml IV UD PRN PRN Reason: Hypoglycemia Diagnostic Test (Pha) (Accu-Chek) 1 each FS ACHS [facility] Last Admin: 09/01/18 11:58 Dose: 1 each Documented by: Escitalopram Oxalate (Lexapro) 10 mg PO QDAY [facility] Last Admin: 09/01/18 09:15 Dose: 10 mg Documented by: Glucose (Insta-Glucose) 15 gm PO PRN PRN PRN Reason: Hypoglycemia Heparin Sodium (Porcine) (Heparin Flush) 2 ml IV Q12 [facility] Last Admin: 09/01/18 09:16 Dose: 2 ml Documented by: Hydromorphone HCl (Dilaudid) 0.5 mg IV Q2HP PRN PRN Reason: PAIN LEVEL > 6 Last Admin: 08/31/18 16:31 Dose: 0.5 mg Documented by: Piperacillin Sod/Tazobactam (Sod 3.375 gm/ Dextrose) 50 mls @ 100 mls/hr IV Q6H [facility]; Protocol Last Admin: 09/01/18 12:03 Dose: 100 mls/hr Documented by: Insulin Glargine (Lantus) 20 unit SQ DAILY [facility] Last Admin: 09/01/18 09:24 Dose: 20 units Documented by: Insulin Human Lispro (Humalog) 0 unit SQ ACHS [facility]; Protocol Last Admin: 09/01/18 11:59 Dose: 6 unit Documented by: Iron Carb/Multivit/[place]/Folic Acid (Multivitamin W/Minerals) 1 tab PO DAILY [facility] Last Admin: 09/01/18 09:15 Dose: 1 tab Documented by: Lactobacillus Rhamnosus (Culturelle) 1 cap PO BID [facility] Last Admin: 09/01/18 09:15 Dose: 1 cap Documented by: Multivitamins/Minerals (Ocuvite) 1 tab PO DAILY [facility] Last Admin: 09/01/18 09:16 Dose: 1 tab Documented by: Nitroglycerin (Nitrostat) 0.4 mg SL Q5M PRN PRN Reason: Chest Pain Ondansetron HCl (Zofran) 4 mg IV Q6HP PRN PRN Reason: Nausea And Vomiting Oxycodone HCl (Roxicodone) 5 mg PO Q4HP PRN PRN Reason: pain not responding to apap Last Admin: 09/01/18 09:18 Dose: 5 mg Documented by: Potassium Chloride (Kdur) 20 meq PO QAC [facility] Last Admin: 09/01/18 09:15 Dose: 20 meq Documented by: Pregabalin (Lyrica) 75 mg PO QID [facility] Last Admin: 09/01/18 09:16 Dose: 75 mg Documented by: Senna (Senokot) 2 tab PO DAILY PRN PRN Reason: Constipation Simvastatin (Zocor) 40 mg PO HS [facility] Last Admin: 08/31/18 21:37 Dose: 40 mg Documented by: Sodium Chloride (Saline Flush) 10 ml IV Q8 [facility] Last Admin: 09/01/18 05:24 Dose: 10 ml Documented by: Sodium Chloride (Saline Flush) 10 ml IV Q12 [facility] Last Admin: 09/01/18 09:17 Dose: 10 ml Documented by: Vitamin D (Vitamin D3) 400 unit PO DAILY [facility] Last Admin: 09/01/18 09:15 Dose: 400 unit Documented by: Vitamin E (Vitamin E) 400 unit PO DAILY [facility] Last Admin: 09/01/18 09:16 Dose: 400 unit Documented by: Medical - PN: A/P - Time Spent With Patient Total time spent is greater than 50% in coordination of care (as documented) at patient's floor/unit and/or counseling patient: - Narrative A/P Narrative: A/P Infected left buttock Ulcer -No e/o Osteomyelitis on MRI -on IV zosyn for polymicrobial infection -Urology and Surgery did not recommend diverting urine, or colostomy at this time. -s/p wound vac application by surgery. -Anticipate cd/c to LTAC -Mid line placed, in light of staph found in the culture, I feel zosyn cove rage would be more appropriate for now. Acute Kidney injury -resolved Hypotension -resolved Hypoglycemia -resolved DM -labile, glucose level 65 this AM -Lantus dose at 20 am, hold glizpide CKD stage 3 -stable renal function - NELIDA to be resumed CAD, s/p CABG -continue home meds, no chest pain reported, on imdur, statin, asa, coreg , (bp meds were held will be resumed) HTN -graudal resumption Diastolic heart failure, grade 1 -medical management, stable, not in exacerbation -on diuretic continue same Anemia of chronic disease -monitor Obesity, morbid, bmi 42 -outpatient management Depression -on lexapro, stable DVT hep sq Diet carb consistent/ cardiac FUll code Medical - PN: Qual - VTE Deep Vein Thrombosis/Pulmonary Embolism Present on Admission: No
[2018-09-01] MEDS: ISOSORBIDE MONONITRATE 60 MG TAB.XL.24H PO SCH (13:17)
--- NOTE | 2018-09-01 14:22 | General Surgery Progress Note ---
Subjective Narrative: Note initiated : 09/01/18 at 2:21 pm Service Date, if different from initiated Date: [] Patient: Quintin Avalos 63 y/o M admitted on 08/26/18 for Wound. Chief Complaint: [patient is doing well. His wound VAC dressing is intact. The medial border had to be reinforced is now holding his pressure. No surrounding cellulitis noted. Patient is stable for transfer to long-term care facility when bed is available] Objective Temp Pulse Resp BP Pulse Ox 97.4 F 79 24 H 118/68 98 09/01/18 12:00 09/01/18 08:10 09/01/18 12:00 09/01/18 12:00 09/01/18 12:00 - Additional Data Intake & Output - Last 24 hours: Intake & Output 08/30/18 08/31/18 09/01/18 09/02/18 05:59 05:59 05:59 05:59 Intake Total 3155 2460 2870 3010 Output Total 4025 450 3505 1575 Balance -870 2010 -635 1435 Weight 316 lb 304 lb - Labs 09/01/18 04:22 09/01/18 04:22 Diabetes panel 09/01/18 Range/Units 04:22 Sodium 140 (133-145) mmol/L Potassium 5.0 (3.3-5.1) mmol/L Chloride 102 (96-108) mmol/L Carbon Dioxide 29 (22-30) mmol/L BUN 29 H (8-23) mg/dl Creatinine 1.1 (0.7-1.2) mg/dl Glucose 155 H (70-105) mg/dL Calcium 8.9 (8.6-10.4) mg/dl AST 14 (0-37) U/l ALT 13 (0-40) U/l Alkaline Phosphatase 75 (39-117) U/L Total Protein 6.3 (5.9-8.4) gm/dL Albumin 2.8 L (3.2-5.2) gm/dL Triglycerides 128 (<150) mg/dl Calcium panel 09/01/18 Range/Units 04:22 Calcium 8.9 (8.6-10.4) mg/dl Phosphorus 3.8 (2.7-4.5) mg/dL Albumin 2.8 L (3.2-5.2) gm/dL Pituitary panel 09/01/18 Range/Units 04:22 Sodium 140 (133-145) mmol/L Potassium 5.0 (3.3-5.1) mmol/L Chloride 102 (96-108) mmol/L Carbon Dioxide 29 (22-30) mmol/L BUN 29 H (8-23) mg/dl Creatinine 1.1 (0.7-1.2) mg/dl Glucose 155 H (70-105) mg/dL Calcium 8.9 (8.6-10.4) mg/dl Adrenal panel 09/01/18 Range/Units 04:22 Sodium 140 (133-145) mmol/L Potassium 5.0 (3.3-5.1) mmol/L Chloride 102 (96-108) mmol/L Carbon Dioxide 29 (22-30) mmol/L BUN 29 H (8-23) mg/dl Creatinine 1.1 (0.7-1.2) mg/dl Glucose 155 H (70-105) mg/dL Calcium 8.9 (8.6-10.4) mg/dl Total Bilirubin 0.2 (0.0-1.0) mg/dL AST 14 (0-37) U/l ALT 13 (0-40) U/l Alkaline Phosphatase 75 (39-117) U/L Total Protein 6.3 (5.9-8.4) gm/dL Albumin 2.8 L (3.2-5.2) gm/dL Assessment and Plan (1) Open wound of left buttock with complication Problem details: MRI report seen and pictures reviewed. SOFT tissue defect at the site of wound with muscle edema and gas open to the surface. NO vasculature and NO bone structure involvement. Status: Acute Assessment and plan: Stable for transfer to long-term care facility when bed is available Current Visit: Yes (2) DM type 2 (diabetes mellitus, type 2) Status: Acute Current Visit: No (3) BPH with obstruction/lower urinary tract symptoms Problem details: 07/11/2013 Status: Acute Current Visit: No - Time Spent With Patient Total time spent is greater than 50% in coordination of care (as documented) at patient's floor/unit and/or counseling patient:
[2018-09-01] MEDS: CARVEDILOL 3.125 MG TABLET PO SCH (16:56)
[2018-09-01] MEDS: SIMVASTATIN 40 MG TABLET PO SCH (21:18)
[2018-09-02] MEDS: PIPERACILLIN SODIUM/TAZOBACTAM 3.375 GM in DEXTROSE 5% IN WATER 50 ML IV SCH ×4 (00:45→17:07)
[2018-09-02] MEDS: 0.9 % SODIUM CHLORIDE 10 ML SYRINGE IV SCH ×6 (01:27→20:16)
[2018-09-02] MEDS: oxyCODONE HCL 5 MG TABLET PO PRN ×5 (02:22→21:05)
[2018-09-02 05:40] LABS: Basophils # (Auto) 0 K/mcL (0.0-0.3); Basophils % (Auto) 0.6 % (0.0-2.0); Eosinophils # (Auto) 0.1 K/mcL (0.0-0.7); Eosinophils % (Auto) 0.9 % (0.0-7.0); Granulocytes % (Auto) 65.2 % (38.0-78.0); Hematocrit 24.5 % (41.0-55.0); Hemoglobin 7.9 g/dL (13.5-16.5); Mean Cell Volume 82.3 fL (80.0-100.0); Mean Corpuscular HGB Conc 32.2 g/dL (31.0-36.0); Mean Platelet Volume 10.9 fL (7.4-10.4); Monocytes # (Auto) 0.7 K/mcL (0.1-0.9); Monocytes % (Auto) 8.3 % (1.0-12.0); Platelet Count 201 K/mcL (140-440); RBC 2.97 M/mcL (4.50-5.90); Red Cell Distribution Width 16.4 % (11.5-14.5)
[2018-09-02 06:00] LABS: ALT/SGPT 15 U/l (0-40); AST/SGOT 16 U/l (0-37); Albumin 2.6 gm/dL (3.2-5.2); Albumin/Globulin Ratio 0.7 (1.0-2.3); Alkaline Phosphatase 71 U/L (39-117); Bilirubin,Direct < 0.2 mg/dL (0.0-0.3); Bilirubin,Total < 0.2 mg/dL (0.0-1.0); Blood Urea Nitrogen 25 mg/dl (8-23); Calcium 8.9 mg/dl (8.6-10.4); Carbon Dioxide 25 mmol/L (22-30); Chloride 106 mmol/L (96-108); Globulin 3.5 gm/dL (2.2-3.7); Glomerular Filtration Rate 79; Glucose 90 mg/dL (70-105); Lactate Dehydrogenase 228 U/L (94-250); Magnesium 2.3 mg/dL (1.6-2.5); Phosphorous 2.8 mg/dL (2.7-4.5); Potassium 4.3 mmol/L (3.3-5.1); Sodium 142 mmol/L (133-145); Triglycerides 137 mg/dl (<150); Uric Acid 3.2 mg/dL (2.5-8.0)
[2018-09-02] MEDS: INSULIN LISPRO 1 UNIT/0.01 ML UNIT SQ SCH ×4 (07:20→20:14)
[2018-09-02] MEDS: HYDROmorphone 2 MG/ML VIAL IV PRN (09:20)
[2018-09-02] MEDS: ISOSORBIDE MONONITRATE 60 MG TAB.XL.24H PO SCH (09:24)
[2018-09-02] MEDS: ASPIRIN 81 MG TAB.CHEW CHEWED SCH (09:24)
[2018-09-02] MEDS: POTASSIUM CHLORIDE 20 MEQ TABLET PO SCH (09:24)
[2018-09-02] MEDS: VITAMIN D3 400 UNIT TABLET PO SCH (09:24)
[2018-09-02] MEDS: LACTOBACILLUS 1 CAPSULE PO SCH ×2 (09:24→20:13)
[2018-09-02] MEDS: VITAMIN E (DL,TOCOPHERYL ACET) 400 UNIT CAPSULE PO SCH (09:24)
[2018-09-02] MEDS: MULTIVIT,THER IRON,CA,FA & MIN 1 TABLET PO SCH (09:25)
[2018-09-02] MEDS: TORSEMIDE 10 MG TABLET PO SCH (09:25)
[2018-09-02] MEDS: LISINOPRIL 5 MG TABLET PO SCH (09:25)
[2018-09-02] MEDS: ESCITALOPRAM 10 MG TABLET PO SCH (09:25)
[2018-09-02] MEDS: PREGABALIN 75 MG CAPSULE PO SCH ×4 (09:25→20:13)
[2018-09-02] MEDS: ALLOPURINOL 100 MG TABLET PO SCH (09:25)
[2018-09-02] MEDS: CARVEDILOL 3.125 MG TABLET PO SCH ×2 (09:25→16:57)
[2018-09-02] MEDS: CALCITRIOL 0.25 MCG CAPSULE PO SCH ×2 (09:25→20:13)
[2018-09-02] MEDS: INSULIN GLARGINE, HUMAN 1 UNIT/0.01 ML SQ SCH (09:26)
[2018-09-02] MEDS: VIT A,C & E/LUTEIN/MINERALS TABLET PO SCH (09:26)
--- NOTE | 2018-09-02 10:12 | Internal Med Progress Note ---
Medical - PN: Subj Patient information: Note initiated : 09/02/18 at 10:08 am Service Date, if different from initiated Date: [] Patient: Quintin Avalos a 63 y/o M admitted on 08/26/18 for Wound. Chief Complaint: [] Interval history: Mr. Avalos is a 63 year old M Transferred to [facility] for further wound care of a infected decubitus ulcer. Patient originally presented to [facility] the middle of June for infected decubitus wound with sepsis and DKA and was transferred up to [place] and was at there for 19 days and then discharged home. He was seen in [place] by surgeon who did debridement on the . A week later to the wound was shown to primary care provider Dr. Doherty to request the patient come to the ED. Patient was admitted and treated with IV antibiotics and was taken for OR debr idement on the . The wound is debrided down to the bone and there has been eschar noted. An ESR was done today which is 108 CRP was 6. There is concern for developing osteomyelitis. [facility] does not have MRI for the next 4 days and their surgeon is gone for the next 4 days as well. This is requested to transfer for further wound care and imaging as we have MRI available. Case is also discussed with Dr. Mariscal and Dr. Garcia. Dr. kaplan will follow. MRI for tomorrow. Patient has no complaints at this time other than the sore bottom. 08/27 No overnight events. Seen by Dr. kaplan this morning. IV antibiotics continuing. MRI this morning. No new complaints. 08/28 Pain controlled, no overnight events. No new complaints. Did have some diarrhea yesterday. Stool softener stopped. 08/29 Patient seen and examined, no acute overnight events. Glucose level a bit low on basic metabolic profile, cut back on the dose of Lantus. Patient has some pain at the wound site, Wound care surgeon is awaiting consult from general surgery to formulate a plan. Infectious disease provider also is following. There is consideration for diversion of feces for wound healing, patient may benefit from a diverting ileostomy or colostomy according to the ID physician precious carias the wound care physician. The wound care physician is also requesting I believe a urinary diversion, and he is discussing this with the urologist. Patient does not have any fever or chills, and is hemodynamically stable at this point. IV antibiotics as per infectious disease Wound care as per Dr. Reyes 08/30 Pt seen examined, no acute issue reported afebrile, labs stable, on Zosyn for polymicrobial infection which seems to be responding well, I have reviewed the consults from ID, Surgery, Wound care and Urology. At this time the consultants Surgery and Urology believe that a diverting colostomy and a urinary diversion is not indicated. Patient is ambulatory and is able to provide self care for the most part. Patient case was reviewed with LTAC team and it was noted that they would wish for a debridement and wound vac placement and clarification of the need for fecal and urinary diversions (which according to surgey and urology is not indicated at this time). I have asked Dr Vega to consider OR debridement and application of wound vac to the patient, if it would help facilitate wound healing and then transfer to LTAC center. 08/31 Pt seen examined, overnight low bp, low glucose noted, pt seen post op, no acute complaints, a bit groggy, responded to IV fluids, this AM labs show slight worsening of renal function, likely from use of diuretics, low bp s/p OR debridement and wound vac placement by surgery. IV zosyn to continue. Appreciate help from Dr Vega with regards to helping patient get a wound vac, [facility]01 Patient seen and examined, no acute overnight events. Glucose level now elevated resume dose of Lantus, but 20 units once a day and watch glucose closely. Keep holding blood pressure meds for now anticipated gradual resumption Patient is asymptomatic labs are stable renal function back to baseline Anticipate d/c tomorrow if bed available. 09/02 Patient seen and examined no acute overnight events. Patient's glucose level 95 this morning. On Lantus 20 units once a day. Patient's renal function is back to normal, blood pressure is stable, initiate torsemide 30 mg once a day rather than twice a day for now. Resume lisinopril 5 mg once a day. Patient will have dressing changes today as per schedule, I looked at the wound and the patient's wound appears to be improved compared to the previous evaluation, no foul-smelling discharge noted. Patient is awaiting discharge facility medically stable for discharge Pertinent ROS: Denies headache, dizziness Denies chest pain, palpitations Denies cough or shortness of breath Denies abdominal pain, nausea or vomiting. - Constitutional Vitals: Vital Signs Temp Pulse Resp BP Pulse Ox 97.8 F 83 18 137/77 98 09/02/18 07:56 09/02/18 07:56 09/02/18 07:56 09/02/18 07:56 09/02/18 07:56 Period Temp Pulse Resp BP Sys/[place] Pulse Ox Last 24 Hr 97.3 F-97.8 F 69-83 18-24 109-138/44-77 92-99 Intake and Output 09/01/18 09/02/18 09/02/18 21:59 05:59 13:59 Intake Total 1030 250 530 Output Total 1025 875 200 Balance 5 -625 330 Weight 321 lb Intake & Output: Intake & Output 09/01/18 09/02/18 09/02/18 21:59 05:59 13:59 Intake Total 1030 250 530 Output Total 1025 875 200 Balance 5 -625 330 Weight 321 lb Intake: Nourishment/Supplement quantity 240 (ml) IV 50 50 50 Zosyn 3.375 gm In Dextrose 5% 50 50 50 in Water 50 ml @ 100 mls/hr IV Q6H REPLACED BY [facility] Rx#:[id number] Oral 740 200 480 Output: Drainage 50 Buttock Woundvac 50 Void Amount 1025 825 200 Other: Meal Dinner Breakfast Percent of Meal Consumed 100% 100% Feeding Ability Independent Independent Urine Appearance Clear Clear Clear Urine Color Bright Yellow Bright Yellow Bright Yellow Urine Odor Normal Normal Stool Consistency Loose Exam: Constitutional; Afebrile, cooperative, alert, not in distress. Respiratory system: Air Entry equal on both sides, No crackles or wheezing, no rhonchi. CVS- Rate rhythm regular, S1,S2 heard, no gallop, no rub. Abdomen- Soft nontender abdomen, no organomegaly, no tenderness, no guarding or rigidity, RADIOTELEGRAPHER- AOOx3, moving all extremities, no gross focal deficit noted. Medical - PN: Obj Da - Labs CBC & Chem 7: 09/02/18 04:22 09/02/18 04:22 Labs: Abnormal Lab Results 09/02/18 09/02/18 09/01/18 04:22 04:22 04:22 RBC 2.97 L Hgb 7.9 L Hct 24.5 L RDW 16.4 H MPV 10.9 H Gran % Lymph % (Auto) [place] % (Auto) Lymph # (Auto) [place] # (Auto) BUN 25 H 29 H Creatinine Glucose 155 H Phosphorus GGT 91 H 95 H Albumin 2.6 L 2.8 L Albumin/Globulin Ratio 0.7 L 0.8 L Triglycerides 09/01/18 08/31/18 08/31/18 04:22 04:21 04:21 RBC 3.13 L 3.09 L Hgb 8.2 L 8.2 L Hct 25.7 L 25.1 L RDW 16.0 H 16.3 H MPV 11.4 H 10.6 H Gran % 81.0 H Lymph % (Auto) 12.7 L [place] % (Auto) 13.6 H Lymph # (Auto) 0.9 L [place] # (Auto) 1.1 H BUN 35 H Creatinine 1.9 H Glucose 49 L Phosphorus 5.6 H GGT 98 H Albumin 2.8 L Albumin/Globulin Ratio 0.8 L Triglycerides 177 H Meds: Medications Acetaminophen (Tylenol) 650 mg PO Q6HP PRN PRN Reason: PAIN/FEVER > 101 Last Admin: 09/01/18 19:16 Dose: 650 mg Documented by: Albuterol/Ipratropium (Duoneb) 3 ml NEB Q4HRT PRN PRN Reason: Bronchospasm Allopurinol (Zyloprim) 100 mg PO QDAY REPLACED BY [facility] Last Admin: 09/02/18 09:25 Dose: 100 mg Documented by: Aspirin (Aspirin) 81 mg CHEWED DAILY REPLACED BY [facility] Last Admin: 09/02/18 09:24 Dose: 81 mg Documented by: Calcitriol (Rocaltrol) 0.25 mcg PO BID REPLACED BY [facility] Last Admin: 09/02/18 09:25 Dose: 0.25 mcg Documented by: [facility] ([facility]g) [facility] Last Admin: 09/02/18 09:25 Dose: 3.125 mg Documented by: Dextrose (Dextrose 50%) 0 ml IV UD PRN PRN Reason: Hypoglycemia Diagnostic Test (Pha) (Accu-Chek) 1 each FS ACHS REPLACED BY [facility] Last Admin: 09/02/18 07:19 Dose: 1 each Documented by: Escitalopram Oxalate (Lexapro) 10 mg PO QDAY REPLACED BY [facility] Last Admin: 09/02/18 09:25 Dose: 10 mg Documented by: Glucose (Insta-Glucose) 15 gm PO PRN PRN PRN Reason: Hypoglycemia Heparin Sodium (Porcine) (Heparin Flush) 2 ml IV Q12 REPLACED BY [facility] Last Admin: 09/02/18 09:21 Dose: 2 ml Documented by: Hydromorphone HCl (Dilaudid) 0.5 mg IV Q2HP PRN PRN Reason: PAIN LEVEL > 6 Last Admin: 09/02/18 09:20 Dose: 0.5 mg Documented by: Piperacillin Sod/Tazobactam (Sod 3.375 gm/ Dextrose) 50 mls @ 100 mls/hr IV Q6H REPLACED BY [facility]; Protocol Last Infusion: 09/02/18 06:10 Dose: Infused Documented by: Insulin Glargine (Lantus) 20 unit SQ DAILY REPLACED BY [facility] Last Admin: 09/02/18 09:26 Dose: 20 units Documented by: Insulin Human Lispro (Humalog) 0 unit SQ ACHS REPLACED BY [facility]; Protocol Last Admin: 09/02/18 07:20 Dose: Not Given Documented by: Iron Carb/Multivit/[place]/Folic Acid (Multivitamin W/Minerals) 1 tab PO DAILY REPLACED BY [facility] Last Admin: 09/02/18 09:25 Dose: 1 tab Documented by: Isosorbide Mononitrate (Imdur) 60 mg PO DAILY REPLACED BY [facility] Last Admin: 09/02/18 09:24 Dose: 60 mg Documented by: Lactobacillus Rhamnosus (Culturelle) 1 cap PO BID REPLACED BY [facility] Last Admin: 09/02/18 09:24 Dose: 1 cap Documented by: Lisinopril (Zestril) 5 mg PO DAILY REPLACED BY [facility] Last Admin: 09/02/18 09:25 Dose: 5 mg Documented by: Multivitamins/Minerals (Ocuvite) 1 tab PO DAILY REPLACED BY [facility] Last Admin: 09/02/18 09:26 Dose: 1 tab Documented by: Nitroglycerin (Nitrostat) 0.4 mg SL Q5M PRN PRN Reason: Chest Pain Ondansetron HCl (Zofran) 4 mg IV Q6HP PRN PRN Reason: Nausea And Vomiting Oxycodone HCl (Roxicodone) 5 mg PO Q4HP PRN PRN Reason: pain not responding to apap Last Admin: 09/02/18 06:12 Dose: 5 mg Documented by: Potassium Chloride (Kdur) 20 meq PO QAMCC REPLACED BY [facility] Last Admin: 09/02/18 09:24 Dose: 20 meq Documented by: Pregabalin (Lyrica) 75 mg PO QID REPLACED BY [facility] Last Admin: 09/02/18 09:25 Dose: 75 mg Documented by: Senna (Senokot) 2 tab PO DAILY PRN PRN Reason: Constipation Simvastatin (Zocor) 40 mg PO HS REPLACED BY [facility] Last Admin: 09/01/18 21:18 Dose: 40 mg Documented by: Sodium Chloride (Saline Flush) 10 ml IV Q8 REPLACED BY [facility] Last Admin: 09/02/18 05:32 Dose: 10 ml Documented by: Sodium Chloride (Saline Flush) 10 ml IV Q12 REPLACED BY [facility] Last Admin: 09/02/18 09:21 Dose: 10 ml Documented by: Torsemide (Demadex) 30 mg PO DAILY REPLACED BY [facility] Last Admin: 09/02/18 09:25 Dose: 30 mg Documented by: Vitamin D (Vitamin D3) 400 unit PO DAILY REPLACED BY [facility] Last Admin: 09/02/18 09:24 Dose: 400 unit Documented by: Vitamin E (Vitamin E) 400 unit PO DAILY REPLACED BY [facility] Last Admin: 09/02/18 09:24 Dose: 400 unit Documented by: Medical - PN: A/P - Time Spent With Patient Total time spent is greater than 50% in coordination of care (as documented) at patient's floor/unit and/or counseling patient: - Narrative A/P Narrative: A/P Infected left buttock Ulcer -No e/o Osteomyelitis on MRI -on IV zosyn for polymicrobial infection -Urology and Surgery did not recommend diverting urine, or colostomy at this time. -s/p wound vac application by surgery. Dressing chagne today -Anticipate cd/c to LTAC -Mid line placed, in light of staph found in the culture, I feel zosyn coverage would be more appropriate for now. will cover for total of 2 weeks, Acute Kidney injury -resolved Hypotension -resolved Hypoglycemia -resolved DM -labile, glucose level 95 this AM -Lantus dose at 20 am, hold glizpide CKD stage 3 -stable renal function - NELIDA to be resumed CAD, s/p CABG -continue home meds, no chest pain reported, on imdur, statin, asa, coreg HTN -graudal resumption of home meds, lisinopril starting today. Diastolic heart failure, grade 1 -medical management, stable, not in exacerbation -on diuretic , resuem torsemide 30mg once daily today. (pt was on 30mg bid) Anemia of chronic disease -monitor -check iron sat, ferritin, fol, b 12 levels. Obesity, morbid, bmi 42 -outpatient management Depression -on lexapro, stable DVT hep sq Diet carb consistent/ cardiac FUll code Await placement, Medical - PN: Qual - VTE Deep Vein Thrombosis/Pulmonary Embolism Present on Admission: No
[2018-09-02 12:01] LABS: Ferritin 398.1 ng/ml (30-400)
[2018-09-02 12:06] LABS: Vitamin B12 677.5 pg/ml (232-1245)
[2018-09-02] MEDS: SIMVASTATIN 40 MG TABLET PO SCH (20:13)
[2018-09-03] MEDS: PIPERACILLIN SODIUM/TAZOBACTAM 3.375 GM in DEXTROSE 5% IN WATER 50 ML IV SCH ×2 (00:49→05:21)
[2018-09-03] MEDS: oxyCODONE HCL 5 MG TABLET PO PRN ×2 (01:28→06:38)
[2018-09-03] MEDS: 0.9 % SODIUM CHLORIDE 10 ML SYRINGE IV SCH ×2 (05:21→08:07)
[2018-09-03 05:34] LABS: Basophils # (Auto) 0.1 K/mcL (0.0-0.3); Basophils % (Auto) 0.7 % (0.0-2.0); Eosinophils # (Auto) 0.2 K/mcL (0.0-0.7); Eosinophils % (Auto) 2.7 % (0.0-7.0); Granulocytes % (Auto) 61.9 % (38.0-78.0); Hematocrit 23.8 % (41.0-55.0); Hemoglobin 7.6 g/dL (13.5-16.5); Lymphocytes # (Auto) 1.8 K/mcL (1.5-4.8); Lymphocytes % (Auto) 23.8 % (15.5-49.0); Mean Cell Volume 81.5 fL (80.0-100.0); Mean Corpuscular HGB Conc 32.1 g/dL (31.0-36.0); Mean Platelet Volume 10.7 fL (7.4-10.4); Monocytes # (Auto) 0.8 K/mcL (0.1-0.9); Monocytes % (Auto) 10.9 % (1.0-12.0); Platelet Count 234 K/mcL (140-440); RBC 2.92 M/mcL (4.50-5.90); WBC 7.4 K/mcL (4.5-11.0)
[2018-09-03 05:46] LABS: ALT/SGPT 19 U/l (0-40); AST/SGOT 21 U/l (0-37); Alkaline Phosphatase 75 U/L (39-117); Bilirubin,Direct < 0.2 mg/dL (0.0-0.3); Bilirubin,Total 0.2 mg/dL (0.0-1.0); Blood Urea Nitrogen 25 mg/dl (8-23); Calcium 8.8 mg/dl (8.6-10.4); Carbon Dioxide 28 mmol/L (22-30); Chloride 100 mmol/L (96-108); Glomerular Filtration Rate 79; Glucose 94 mg/dL (70-105); Lactate Dehydrogenase 241 U/L (94-250); Phosphorous 2.9 mg/dL (2.7-4.5); Potassium 3.9 mmol/L (3.3-5.1); Sodium 141 mmol/L (133-145); Triglycerides 190 mg/dl (<150); Uric Acid 3.3 mg/dL (2.5-8.0)
[2018-09-03] MEDS: INSULIN LISPRO 1 UNIT/0.01 ML UNIT SQ SCH (06:41)
--- NOTE | 2018-09-03 07:45 | Discharge Summary ---
Medical - DS: Prov Patient information: Note initiated : 09/03/18 at 7:38 am Service Date, if different from initiated Date: [] Patient: Quintin Avalos 63 y/o M admitted on 08/26/18 for Wound. Chief Complaint: [] Date of admission: 08/26/18 18:02 Discharge date: 09/03/18 Primary care physician: Herbie Herron Consults: 08/26/18 19:42 Consult to Physician [CONS] Routine Comment: Consulting Provider: Colby Mariscal Reason For Exam: Physician to Consult 08/27/18 10:33 Consult to Physician [CONS] Routine Comment: ROUTINE CONSULT Consulting Provider: Titi Vega Reason For Exam: Recommendations about diverting colostomy 08/27/18 10:36 Consult to Physician [CONS] Routine Comment: Routine consult. ? SP cystostomy Consulting Provider: Sky Payne Reason For Exam: Recommendations Urinary diversion 08/28/18 10:37 Consult to Infectious Disease [CONS] Routine Comment: Consulting Provider: Norbert Coreas Reason For Exam: Physician to Consult Discharging clinician: Ally Campoverde Medical - DS: Meds - Discharge Medications Prescriptions: oxyCODONE HCL [Roxicodone] 5 mg PO Q4HP PRN #20 tablet PRN Reason: pain not responding to apap Active and Home Medications: Home Medications carvedilol 12.5 mg tablet 12.5 mg PO QAM tab 09/06/14 [History Confirmed 08/27/18 Last Taken 08/26/18 08:12] cholecalciferol (vitamin D3) 400 unit capsule 400 unit PO QDAY cap 09/06/14 [History Confirmed 08/28/18 Last Taken 08/21/18] hydrocodone 10 mg-acetaminophen 325 mg tablet 1 - 2 tab PO Q4HP PRN tab 09/06/14 [History Confirmed 08/27/18 Last Taken Unknown] metformin 500 mg tablet 500 mg PO BID tab 09/06/14 [History Confirmed 08/27/18 Last Taken Unknown] nitroglycerin 0.4 mg sublingual tablet 0.4 mg SUBLINGUAL Q5-15MIN PRN tab 09/06/14 [History Confirmed 08/27/18 Last Taken Unknown] rosuvastatin 40 mg tablet 40 mg PO QHS tab 09/06/14 [History Confirmed 08/27/18 Last Taken 08/25/18 20:43] vitamin E 400 unit capsule 400 unit PO QDAY cap 09/06/14 [History Confirmed 08/28/18 Last Taken 08/21/18] escitalopram 10 mg tablet 10 mg PO QDAY 08/06/15 [History Confirmed 08/27/18 Last Taken 08/26/18 08:12] insulin lispro (U- 100) 100 unit/mL subcutaneous cartridge See Rx Instructions .ROUTE .COMPLEX 08/06/15 [History Confirmed 08/29/18 Last Taken Unknown] amlodipine 2.5 mg tablet 2.5 mg PO QDAY 07/08/16 [History Confirmed 08/28/18 Last Taken 08/21/18] aspirin 81 mg chewable tablet 324 mg PO QDAY tab 07/08/16 [History Confirmed 08/27/18 Last Taken Unknown] insulin glargine (U-300) conc. 300 unit/mL (1.5 mL) subcutaneous pen See Rx Instructions SUB-Q QDAY ml 07/08/16 [History Confirmed 08/29/18 Last Taken Unknown] isosorbide mononitrate ER 60 mg tablet,extended release 24 hr 60 mg PO QDAY 07/08/16 [History Confirmed 08/27/18 Last Taken 08/26/18 08:12] allopurinol 100 mg tablet 100 mg PO QDAY #90 tab 01/18/18 [Rx Confirmed 08/28/18 Last Taken 08/21/18] lisinopril 5 mg tablet 5 mg PO QDAY #90 tab 01/26/18 [Rx Confirmed 08/27/18 Last Taken 08/26/18 08:12] pregabalin 75 mg capsule 75 mg PO QID cap 03/15/18 [History Confirmed 08/27/18 Last Taken 08/26/18 12:12] potassium chloride ER 20 mEq tablet,extended release 20 meq PO QDAY #60 tab 05/25/18 [Rx Confirmed 08/27/18 Last Taken 08/26/18 08:12] Calcitriol [Rocaltrol] 0.25 mcg PO BID 08/27/18 [History Confirmed 08/27/18 Last Taken 08/26/18 08:12] Carvedilol [Coreg] 6.25 mg PO QHS 08/27/18 [History Confirmed 08/27/18 Last Taken 08/25/18 20:43] Enoxaparin [Lovenox] 40 mg SQ DAILY 08/27/18 [History Confirmed 08/27/18 Last Taken 08/25/18 20:32] Insulin Glargine, Human [Lantus] 60 unit SQ BID 08/27/18 [History Confirmed 08/27/18 Last Taken 08/26/18 08:12] Insulin Regular, Human [HumuLIN R] See Protocol IJ ACHS 08/27/18 [History Confirmed 08/27/18 Last Taken 08/26/18 12:12 2 units] Piperacillin Sodium/Tazobactam [Zosyn] 3.375 gm IV Q6H 08/27/18 [History Confirmed 08/27/18 Last Taken 08/26/18 12:00] Torsemide [Demadex] 30 mg PO BID 08/27/18 [History Confirmed 08/27/18 Last Taken 08/26/18 12:12] Vanco 1 Gram/250 ml-0.9% NaCl 1 gm IV Q12H 08/27/18 [History Confirmed 08/27/18 Last Taken 08/26/18 15:36] Vancomycin/0.9 % Sod Chloride [Vanco 1.25 gm/250 ml-0.9% NaCl] 1.25 gm IV Q12H 08/27/18 [History Confirmed 08/27/18 Last Taken 08/25/18 15:36] Vit A,C & E/Lutein/Minerals [Ocuvite] 1 tab PO DAILY 08/27/18 [History Confirmed 08/27/18 Last Taken 08/26/18 08:12] fentaNYL CITRATE/PF [Fentanyl 100 Mcg/2 ml Syringe] 50 mcg IV Q4H PRN 08/27/18 [History Confirmed 08/27/18 Last Taken 08/26/18 11:00] glipiZIDE [Glipizide ER] 2.5 mg PO BIDCC 08/27/18 [History Confirmed 08/27/18 Last Taken Unknown] oxyCODONE/APAP [Percocet 5-325 mg] 1 tab PO Q6H PRN 08/27/18 [History Confirmed 08/27/18 Last Taken 08/26/18 13:51] Multivit-Min/FA/Lycopen/Lutein [Centrum Silver Tablet] 1 each PO DAILY 08/28/18 [History Confirmed 08/28/18 Last Taken 08/21/18] Medical - DS: Hosp Hospital course: Mr. Avalos is a 63 year old M Transferred to [facility] for further wound care of a infected decubitus ulcer. Patient originally presented to [facility] the middle of June for infected decubitus wound with sepsis and DKA and was transferred up to [place] and was at there for 19 days and then discharged home. He was seen in [place] by surgeon who did debridement on the . A week later to the wound was shown to primary care provider Dr. Doherty to request the patient come to the ED. Patient was admitted and treated with IV antibiotics and was taken for OR debridement on the . The wound is debrided down to the bone and there has been eschar noted. An ESR was done today which is 108 CRP was 6. There is concern for developing osteomyelitis. [facility] does not have MRI for the next 4 days and their surgeon is gone for the next 4 days as well. This is requested to transfer for further wound care and imaging as we have MRI available. Case is also discussed with Dr. Mariscal and Dr. Garcia. Dr. kaplan will follow. MRI for tomorrow. Patient has no complaints at this time other than the sore bottom. 08/27 No overnight events. Seen by Dr. kaplan this morning. IV antibiotics continuing. MRI this morning. No new complaints. 08/28 Pain controlled, no overnight events. No new complaints. Did have some diarrhea yesterday. Stool softener stopped. 08/29 Patient seen and examined, no acute overnight events. Glucose level a bit low on basic metabolic profile, cut back on the dose of Lantus. Patient has some pain at the wound site, Wound care surgeon is awaiting consult from general surgery to formulate a plan. Infectious disease provider also is following. There is consideration for diversion of feces for wound healing, patient may benefit from a diverting ileostomy or colostomy according to the ID physician and the wound care physician. The wound care physician is also requesting I believe a urinary diversion, and he is discussing this with the urologist. Patient does not have any fever or chills, and is hemodynamically stable at this point. IV antibiotics as per infectious disease Wound care as per Dr. Reyes 08/30 Pt seen examined, no acute issue reported afebrile, labs stable, on Zosyn for polymicrobial infection which seems to be responding well, I have reviewed the consults from ID, Surgery, Wound care and Urology. At this time the consultants Surgery and Urology believe that a diverting colostomy and a urinary diversion is not indicated. Patient is ambulatory and is able to provide self care for the most part. Patient case was reviewed with LTAC team and it was noted that they would wish for a debridement and wound vac placement and clarification of the need for fecal and urinary diversions (which according to surgey and urology is not indicated at this time). I have asked Dr Vega to consider OR debridement and application of wound vac to the patient, if it would help facilitate wound healing and then transfer to LTAC center. 08/31 Pt seen examined, overnight low bp, low glucose noted, pt seen post op, no acute complaints, a bit groggy, responded to IV fluids, this AM labs show slight worsening of renal function, likely from use of diuretics, low bp s/p OR debridement and wound vac placement by surgery. IV zosyn to continue. Appreciate help from Dr Vega with regards to helping patient get a wound vac, [facility]01 Patient seen and examined, no acute overnight events. Glucose level now elevated resume dose of Lantus, but 20 units once a day and watch glucose closely. Keep holding blood pressure meds for now anticipated gradual resumption Patient is asymptomatic labs are stable renal function back to baseline Anticipate d/c tomorrow if bed available. 09/02 Patient seen and examined no acute overnight events. Patient's glucose level 95 this morning. On Lantus 20 units once a day. Patient's renal function is back to normal, blood pressure is stable, initiate torsemide 30 mg once a day rather than twice a day for now. Resume lisinopril 5 mg once a day. Patient will have dressing changes today as per schedule, I looked at the wound and the patient's wound appears to be improved compared to the previous evaluation, no foul-smelling discharge noted. Patient is awaiting discharge facility medically stable for discharge 09/03 Patient seen and examined, no acute overnight events, labs reviewed glucose is stable blood pressure is stable. We will continue present regimen. Patient will benefit from Zosyn for another week to complete a two-week treatment course. He will continue wound VAC as per wound care instructions. Stable for discharge In Summary A 63-year-old gentleman with diabetes, morbid obesity presented to the hospital with a decubitus ulcer, the patient was transferred from an outside facility. As outside facility did not have a local surgeon for 4 days and did not have an MRI to evaluate for ostium mellitus. The patient had a pelvis MRI done shows negative for osteo-mellitus, wound care infectious disease surgery and urology consulted on the patient while the patient was here. Wound care and infectious disease had requested for a diverting colostomy as well as a urinary diversion for this patient to help better heal the wound. General surgery evaluated the patient along with urology, noting the wound, the fact that the patient is ambulatory and able to care for himself for the most part and his comorbid condition noted that diverting colostomy was not indicated, the urologist noted that urinary diversion was not indicated as the patient was able to urinate quite well by himself and is not incontinent. General surgeon applied a wound VAC after debridement in the OR, patient has had one wound VAC dressing change yesterday. Infectious disease had recommended to continue Zosyn, I believe a total of 2 weeks of treatment with antibiotics as recommended. Therapy could be switched to oral antibiotics with levofloxacin and Flagyl the patient's condition improves and the wound looks good. In my opinion I would prefer to keep the patient on Zosyn for the complete course of treatment. Midline has been placed Patient's blood glucose values were low in the hospital stay, he was on significant doses of insulin, glipizide as his home medication. I have cut back on the doses of insulin I believe from 60 twice a day to 20 once a day and his glucose values are holding fine. His blood pressure is also doing well on lower dose of Coreg, as well as torsemide. Patient has low hemoglobin from anemia of chronic disease, and some blood loss from the wound VAC site. I would advise a CBC and a CMP in a week to document stability. Discharge diagnosis: Decubitus Ulcer - Time Spent with Patient Total time spent providing and/or coordinating discharge services: Greater than 30 minutes Medical - DS: Exam - Constitutional Vitals: Vital Signs Temp Pulse Resp BP BP Pulse Ox 09/03/18 06:41 99.0 F 82 18 120/71 98 07/06/19 04:00 97.8 F 74 18 134/75 95 09/03/18 00:00 97.9 F 74 18 139/77 96 09/02/18 20:00 98.9 F 78 18 117/67 95 09/02/18 15:26 97.2 F 20 106/61 95 09/02/18 11:43 97.8 F 78 20 110/32 96 09/02/18 07:56 97.8 F 83 18 137/77 98 Intake and Output 09/02/18 09/03/18 09/03/18 21:59 05:59 13:59 Intake Total 710 850 Output Total 6848 4422 601 Balance -1965 -725 -375 Intake: IV 50 50 Zosyn 3.375 gm In Dextrose 5% 50 50 in Water 50 ml @ 100 mls/hr IV Q6H [facility], [facility]–1983 Rx#:[id number] Oral 660 800 Output: Drainage 300 Buttock Woundvac 300 Void Amount 2459 [id number] 805 Other: Meal cottage cheese, pineapple and strawberry Percent of Meal Consumed 100% Feeding Ability Independent Urine Appearance Clear Clear Clear Urine Color Bright Yellow Pale Bright Yellow Urine Odor Normal Normal Normal Stool Size Large Stool Color Brown Stool Consistency Soft Formed # Bowel Movements 1 Weight 320 lb Additional comments: Constitutional; Afebrile, cooperative, alert, not in distress. Morbid obesity Respiratory system: Air Entry equal on both sides, No crackles or wheezing, no rhonchi. CVS- Rate rhythm regular, S1,S2 heard, no gallop, no rub. Abdomen- Soft nontender abdomen, no organomegaly, no tenderness, no guarding or rigidity, [employer]- AOOx3, moving all extremities, no gross focal deficit noted. Medical - DS: Data Labs on day of discharge: Labs from last 24 hours 09/03/18 09/03/18 09/02/18 03:45 03:45 10:36 WBC 7.4 RBC 2.92 L Hgb 7.6 L Hct 23.8 L MCV 81.5 MCH 26.1 MCHC 32.1 RDW 16.0 H Plt Count 234 MPV 10.7 H Gran % 61.9 Lymph % (Auto) 23.8 [place] % (Auto) 10.9 Eos % (Auto) 2.7 Baso % (Auto) 0.7 Gran # 4.6 Lymph # (Auto) 1.8 [place] # (Auto) 0.8 Eos # (Auto) 0.2 Baso # (Auto) 0.1 Sodium 141 Potassium 3.9 Chloride 100 Carbon Dioxide 28 Anion Gap 13.0 BUN 25 H Creatinine 1.0 GFR Calculation 79 Glucose 94 Uric Acid 3.3 Calcium 8.8 Phosphorus 2.9 Magnesium 2.0 Iron TIBC Unsat Iron Binding Transferrin % Sat Ferritin Total Bilirubin 0.2 Direct Bilirubin < 0.2 GGT 98 H AST 21 ALT 19 Alkaline Phosphatase 75 Lactate Dehydrogenase 241 Total Protein 6.0 Albumin 3.0 L Globulin 3.0 Albumin/Globulin Ratio 1.0 Triglycerides 190 H Vitamin B12 Folate 9.7 09/02/18 10:36 WBC RBC Hgb Hct MCV MCH MCHC RDW Plt Count MPV Gran % Lymph % (Auto) [place] % (Auto) Eos % (Auto) Baso % (Auto) Gran # Lymph # (Auto) [place] # (Auto) Eos # (Auto) Baso # (Auto) Sodium Potassium Chloride Carbon Dioxide Anion Gap BUN Creatinine GFR Calculation Glucose Uric Acid Calcium Phosphorus Magnesium Iron 54 L TIBC 204 L Unsat Iron Binding 150 Transferrin % Sat 26 Ferritin 398.1 Total Bilirubin Direct Bilirubin GGT AST ALT Alkaline Phosphatase Lactate Dehydrogenase Total Protein Albumin Globulin Albumin/Globulin Ratio Triglycerides Vitamin B12 677.5 Folate Medical - DS: A/P - Patient/Caregiver Discharge Instructions Activity: increase activity as tolerated Diet: Cardiac, Consistent Carbohydrate Additional Instructions: Follow-up with your local provider, surgeon for continued wound care Continue IV antibiotics for 1 more week, I would prefer to use Zosyn but if oral antibiotics are needed can be switched to levofloxacin and Flagyl I have made some changes to the medication regimen for diabetes and blood pressure, please follow the new regimen Make sure you check a CBC and CMP in a week. Other Amb Orders: Wound Care Instructions Location: None Selected - Follow up Plan Disposition: [facility] Swing Bed Prognosis: Fair Rehab Potential: Fair I certify that the patient requires SNF services: Yes Overall status at discharge: patient is progressing back to baseline Medical - DS: Qual - VTE Deep Vein Thrombosis/Pulmonary Embolism Present on Admission: No
[2018-09-03] MEDS ORDERED: FERROUS SULFATE 325 MG TABLET PO SCH (08:00)
[2018-09-03] MEDS: CARVEDILOL 3.125 MG TABLET PO SCH (08:08)
[2018-09-03] MEDS: POTASSIUM CHLORIDE 20 MEQ TABLET PO SCH (08:08)
[2018-09-03] MEDS: LACTOBACILLUS 1 CAPSULE PO SCH (08:08)
[2018-09-03] MEDS: TORSEMIDE 10 MG TABLET PO SCH (08:08)
[2018-09-03] MEDS: MULTIVIT,THER IRON,CA,FA & MIN 1 TABLET PO SCH (08:08)
[2018-09-03] MEDS: CALCITRIOL 0.25 MCG CAPSULE PO SCH (08:08)
[2018-09-03] MEDS: PREGABALIN 75 MG CAPSULE PO SCH (08:08)
[2018-09-03] MEDS: ISOSORBIDE MONONITRATE 60 MG TAB.XL.24H PO SCH (08:08)
[2018-09-03] MEDS: ASPIRIN 81 MG TAB.CHEW CHEWED SCH (08:08)
[2018-09-03] MEDS: VITAMIN E (DL,TOCOPHERYL ACET) 400 UNIT CAPSULE PO SCH (08:09)
[2018-09-03] MEDS: VITAMIN D3 400 UNIT TABLET PO SCH (08:09)
[2018-09-03] MEDS: ALLOPURINOL 100 MG TABLET PO SCH (08:09)
[2018-09-03] MEDS: VIT A,C & E/LUTEIN/MINERALS TABLET PO SCH (08:09)
[2018-09-03] MEDS: ESCITALOPRAM 10 MG TABLET PO SCH (08:09)
[2018-09-03] MEDS: LISINOPRIL 5 MG TABLET PO SCH (08:09)
[2018-09-03] MEDS: INSULIN GLARGINE, HUMAN 1 UNIT/0.01 ML SQ SCH (08:15)
--- NOTE | 2018-09-07 12:12 | Operative Note ---
DATE OF OPERATION: 08/31/2018 PREOPERATIVE DIAGNOSIS: Stage 4 decubitus ulcer, left buttock. POSTOPERATIVE DIAGNOSIS: Stage 4 decubitus ulcer, left buttock, measuring 12 x 10 x 6 cm. PROCEDURE: 1. Surgical debridement of stage 4 decubitus ulcer with excision of fat, muscle and fascia. 2. Wound V.A.C. placement. SURGEON: Titi Vega M.D. FINDINGS: Very large presacral and perirectal decubitus ulcer with major necrosis of fat, muscle and presacral fascia. DESCRIPTION OF PROCEDURE: The patient was taken to the operating room and general anesthesia was induced. He was placed in the right lateral recumbent position. The abscess cavity and the surrounding tissue was prepped and draped in the sterile field. Exploration revealed necrotic tissue involving the fat, the muscle and the fascia extending down to the presacral fascia. All of this necrotic tissue was removed. There was some exudate on the fat that was removed by sharp curet. The area was copiously irrigated. Using Metzenbaum scissors, the presacral fascia was incised down to what appeared to be good viable fascia. The bone was not exposed. There was an area of tunneling superiorly, and this was further debrided with Metzenbaum scissors until good fatty tissue was exposed. Hemostasis was achieved. Irrigation was carried out once more. The wound V.A.C. was then placed using a full sheet of white foam and a full sheet of wayne granular foam. The suction dressing was placed, and it was noted that there was good suction without leak. The patient tolerated the procedure well. He was turned into the supine position, allowed to awaken, was extubated and transferred to the postanesthetic care unit in stable, satisfactory condition. LCS:[facility] Job ID: [id number] Doc ID: [id number] Titi Vega M.D.
== END 2018-09-03 08:38 | disposition other institution (70) | DRG 580 ==
LOC: MEDSUR 18:02
PROVIDERS: ADMIT Internal Medicine; ATTEND Internal Medicine